=== PATIENT | male | born 1990 | race Caucasian/White ===

== ENCOUNTER 2016-05-06 12:31 | Observation (INO) | payer SELFPAY ==
[~2016-05-06] VITALS: Ht 172.7 cm; Wt 68.1 kg
[~2016-05-06 12:31] MED LIST: DICY1TAB26 PO; LACTATED RINGER'S 1000 ML INJ 1,000 ML IV ONE; NEOSTIGMINE 3 MG/3 ML SYR IV ONE; ONDANSETRON HCL 4 MG/2 ML VIAL IV PUSH ONE; PROPOFOL 200 MG/20 ML AMP IV ONE
[2016-05-06 12:35] VITALS: BP 130/72; PULSE 99; RESP 20; TEMP 97.7; O2SAT 100
--- NOTE | 2016-05-06 13:47 | PD ---
HPI Chief Complaint: GI Complaint Time Seen by Provider: 13:47 Travel History International Travel<30 days: No Contact w/Intl Traveler<30days: No Traveled to known affect area: No History of Present Illness HPI 25-year-old male with history of IBS presents to emergency department for evaluation right sided abdominal pain. Patient states he noticed it about a week ago. He has been having associated diarrhea. It has been happening intermittently since then but has become a constant sharp upper and lower quadrant pain. He states he noticed blood in his stool. He's been nauseous. He vomited one time yesterday. No fever or chills. Patient states preceding all of this he had an episode where he felt like he may have been having a heart attack area he states he called his mom and she "talked him through it." He has not had that sensation again but since then the abdominal pain began. PFSH Past Medical History Anemia: Yes Diminished Hearing: No Gastrointestinal Disorders: Yes (IBS) Reproductive: No Past Surgical History Other Surgery: No (NO SURGERIES) Social History Alcohol Use: Yes ("HERE AND THERE, SLIGHT OCCASION") Tobacco Use: No ("E-CIG ONLY" TRIED TOBACCO SMOKING A FEW TIMES EARLIER IN LIFE) Substance Use: No Allergies-Medications (Allergen,Severity, Reaction): Coded Allergies: No Known Allergies (Verified , 05/06/16) Reported Meds & Prescriptions Reported Meds & Active Scripts Active Reported Bentyl (Dicyclomine HCl) 20 Mg Tab 20 Mg PO TID PRN Review of Systems Except as stated in HPI: all other systems reviewed are Neg Physical Exam Narrative GENERAL: Well-nourished but cheerful male patient, lying in bed in no acute distress SKIN: Warm and dry. HEAD: Atraumatic. Normocephalic. EYES: Pupils equal and round. No scleral icterus. No injection or drainage. ENT: No nasal bleeding or discharge. Mucous membranes pink and moist. NECK: Trachea midline. No JVD. CARDIOVASCULAR: Elevated rate and rhythm. No murmur appreciated. RESPIRATORY: No accessory muscle use. Clear to auscultation. Breath sounds equal bilaterally. GASTROINTESTINAL: Abdomen soft, nondistended. There is right lower quadrant tenderness to palpation with mild guarding. No rebound tenderness. Hepatic and splenic margins not palpable. MUSCULOSKELETAL: No obvious deformities. No clubbing. No cyanosis. No edema. NEUROLOGICAL: Awake and alert. No obvious cranial nerve deficits. Motor grossly within normal limits. Normal speech. . Data Data Last Documented VS Vital Signs Date Time Temp Pulse Resp B/P Pulse Ox O2 Delivery O2 Flow Rate FiO2 05/06/16 19:04 100 18 121/75 98 Room Air 05/06/16 12:35 97.7 Orders Complete Blood Count With Diff (05/06/16 13:44) Comprehensive Metabolic Panel (05/06/16 13:44) Lipase (05/06/16 13:44) Prothrombin Time / Inr (Pt) (05/06/16 13:44) Act Partial Throm Time (Ptt) (05/06/16 13:44) Urinalysis - C+S If Indicated (05/06/16 13:44) Ct Abd/Pel W Iv Contrast(Rout) (05/06/16 ) Ondansetron Inj (Zofran Inj) (05/06/16 17:30) Ketorolac Inj (Toradol Inj) (05/06/16 17:30) Sodium Chlor 0.9% 1000 Ml Inj (Ns 1000 M (05/06/16 17:45) Iohexol 350 Inj (Omnipaque 350 Inj) (05/06/16 18:09) Iohexol 350 Inj (Omnipaque 350 Inj) (05/06/16 18:29) Morphine Inj (Morphine Inj) (05/06/16 19:00) Piperacil-Tazo 4.5 Gm Premix (Zosyn 4.5 (05/06/16 19:00) Labs Laboratory Tests Test 05/06/16 13:55 White Blood Count 8.4 TH/MM3 Red Blood Count 4.57 MIL/MM3 Hemoglobin 14.0 GM/DL Hematocrit 40.4 % Mean Corpuscular Volume 88.5 FL Mean Corpuscular Hemoglobin 30.6 PG Mean Corpuscular Hemoglobin 34.6 % Concent Red Cell Distribution Width 13.6 % Platelet Count 243 TH/MM3 Mean Platelet Volume 9.1 FL Neutrophils (%) (Auto) 69.8 % Lymphocytes (%) (Auto) 21.4 % Monocytes (%) (Auto) 7.2 % Eosinophils (%) (Auto) 0.9 % Basophils (%) (Auto) 0.7 % Neutrophils # (Auto) 5.8 TH/MM3 Lymphocytes # (Auto) 1.8 TH/MM3 Monocytes # (Auto) 0.6 TH/MM3 Eosinophils # (Auto) 0.1 TH/MM3 Basophils # (Auto) 0.1 TH/MM3 CBC Comment DIFF FINAL Differential Comment Prothrombin Time 10.7 SEC Prothromb Time International 1.0 RATIO Ratio Activated Partial 26.6 SEC Thromboplast Time Urine Color LIGHT-YELLOW Urine Turbidity CLEAR Urine pH 6.0 Urine Specific [place] 1.011 Urine Protein NEG mg/dL Urine Glucose (UA) NEG mg/dL Urine Ketones NEG mg/dL Urine Occult Blood NEG Urine Nitrite NEG Urine Bilirubin NEG Urine Urobilinogen LESS THAN 2.0 MG/DL Urine Leukocyte Esterase SMALL Urine RBC 1 /hpf Urine WBC 5 /hpf Urine Squamous Epithelial <1 /hpf Cells Urine Bacteria RARE /hpf Microscopic Urinalysis Comment CULT NOT INDICATED Sodium Level 142 MEQ/L Potassium Level 4.4 MEQ/L Chloride Level 107 MEQ/L Carbon Dioxide Level 27.4 MEQ/L Anion Gap 8 MEQ/L Blood Urea Nitrogen 14 MG/DL Creatinine 0.75 MG/DL Estimat Glomerular Filtration 127 ML/MIN Rate Random Glucose 91 MG/DL Calcium Level 9.0 MG/DL Total Bilirubin 0.2 MG/DL Aspartate Amino Transf 33 U/L (AST/SGOT) Alanine Aminotransferase 52 U/L (ALT/SGPT) Alkaline Phosphatase 100 U/L Total Protein 7.3 GM/DL Albumin 3.9 GM/DL Lipase 237 U/L [facility] Medical Decision Making Medical Screen Exam Complete: Yes Emergency Medical Condition: Yes Medical Record Reviewed: Yes Differential Diagnosis Colitis versus appendicitis versus cholecystitis versus IBS versus constipation as his anxiety Narrative Course 25-year-old male presents to the emergency department for evaluation. Workup is initiated in triage. Once a medical bed becomes available, patient will be transferred and care assumed by that provider. Condition: Stable AndreaAbbyAnnalauren RUIZ May 06, 2016 13:47
[2016-05-06 14:15] LABS: AUTOMATED NEUTROPHIL # 5.8 TH/MM3 (1.8-7.7); BASOPHIL # 0.1 TH/MM3 (0-0.2); BASOPHIL % 0.7 % (0.0-2.0); EOSINOPHIL # 0.1 TH/MM3 (0-0.4); EOSINOPHIL % 0.9 % (0.0-4.0); HEMATOCRIT 40.4 % (39.0-51.0); HEMO FLAGS DIFF FINAL; LYMPH % 21.4 % (9.0-44.0); LYMPHOCYTE # 1.8 TH/MM3 (1.0-4.8); MEAN CELL VOLUME 88.5 FL (80.0-100.0); MEAN CORPUSCULAR HEMOGLOBIN 30.6 PG (27.0-34.0); MEAN CORPUSCULAR HGB CONC 34.6 % (32.0-36.0); MONO % 7.2 % (0.0-8.0); NEUT % 69.8 % (16.0-70.0); PLATELET COUNT 243 TH/MM3 (150-450); RED BLOOD COUNT 4.57 MIL/MM3 (4.50-5.90); RED CELL DISTRIBUTION WIDTH 13.6 % (11.6-17.2); WHITE BLOOD COUNT 8.4 TH/MM3 (4.0-11.0)
[2016-05-06 14:26] LABS: BACTERIA, URINE RARE /hpf; BLOOD, URINE NEG (NEG); COMMENT (UR) CULT NOT INDICATED; CULTURE IF INDICATED CULT NOT INDICATED; GLUCOSE,URINE NEG (NEG); KETONE, URINE NEG (NEG); NITRITE,URINE NEG (NEG); SQUAMOUS EPITHELIAL CELL URINE <1 /hpf (0-5); URINE COLOR LIGHT-YELLOW (YELLW/STRAW)
[2016-05-06 14:28] LABS: APTT (PATIENT) 26.6 SEC (24.3-30.1); PROTHROMBIN TIME - PATIENT 10.7 SEC (9.8-11.6)
[2016-05-06 14:32] LABS: ALT (GPT) 52 U/L (12-78); ANION GAP 8 MEQ/L (5-15); AST (GOT) 33 U/L (15-37); BICARBONATE 27.4 MEQ/L (21.0-32.0); CHLORIDE 107 MEQ/L (98-107); GLOMERULAR FILTRATION RATE 127 ML/MIN (>89); POTASSIUM 4.4 MEQ/L (3.5-5.1); SODIUM (NA) 142 MEQ/L (136-145)
[2016-05-06 14:35] LABS: ALKALINE PHOSPHATASE 100 U/L (45-117); BLOOD UREA NITROGEN 14 MG/DL (7-18); TOTAL BILIRUBIN ADULT 0.2 MG/DL (0.2-1.0)
[2016-05-06] MEDS ORDERED: BENT20TA PO (17:05)
--- NOTE | 2016-05-06 17:26 | PD ---
Physical Exam Date Seen by Provider: May 06, 2016 Time Seen by Provider: 17:24 Narrative 25-year-old male presents to the emergency department with his mother for evaluation of abdominal pain. The patient was initially seen in triage and workup was started. The patient was then transferred back to medical [facility]. The patient states that his pain started approximately a week ago. However, his mother in the room states has been going on longer, approximately 3 weeks. Patient reports a history of IBS. He states his last colonoscopy was in 2006. He is not currently follow-up with a mercury recoverer. He reports chills, but no fevers. He does state he vomited 1 yesterday. Patient also reports diarrhea. Patient states he takes Bentyl which normally works for his IBS pain , but this pain is different and nothing is helping. GENERAL: Well-developed well-nourished male patient, afebrile. SKIN: Warm and dry. HEAD: Normocephalic. Atraumatic. EYES: No scleral icterus. No injection or drainage. NECK: Supple, trachea midline. No JVD or lymphadenopathy. CARDIOVASCULAR: Regular rate and rhythm without murmurs, gallops, or rubs. RESPIRATORY: Breath sounds equal bilaterally. No accessory muscle use. Lungs sounds clear to auscultation. GASTROINTESTINAL: Abdomen soft and nondistended. Patient's tenderness over right lower quadrant, right upper quadrant, epigastric region. MUSCULOSKELETAL: No cyanosis, or edema. BACK: Nontender without obvious deformity. No CVA tenderness. Data Data Last Documented VS Vital Signs Date Time Temp Pulse Resp B/P Pulse Ox O2 Delivery O2 Flow Rate FiO2 05/06/16 20:28 93 16 121/75 100 Room Air 05/06/16 12:35 97.7 Orders Complete Blood Count With Diff (05/06/16 13:44) Comprehensive Metabolic Panel (05/06/16 13:44) Lipase (05/06/16 13:44) Prothrombin Time / Inr (Pt) (05/06/16 13:44) Act Partial Throm Time (Ptt) (05/06/16 13:44) Urinalysis - C+S If Indicated (05/06/16 13:44) Ct Abd/Pel W Iv Contrast(Rout) (05/06/16 ) Ondansetron Inj (Zofran Inj) (05/06/16 17:30) Ketorolac Inj (Toradol Inj) (05/06/16 17:30) Sodium Chlor 0.9% 1000 Ml Inj (Ns 1000 M (05/06/16 17:45) Iohexol 350 Inj (Omnipaque 350 Inj) (05/06/16 18:09) Iohexol 350 Inj (Omnipaque 350 Inj) (05/06/16 18:29) Morphine Inj (Morphine Inj) (05/06/16 19:00) Piperacil-Tazo 4.5 Gm Premix (Zosyn 4.5 (05/06/16 19:00) Admit Order (Ed Use Only) (05/06/16 20:53) Labs Laboratory Tests Test 05/06/16 13:55 White Blood Count 8.4 TH/MM3 Red Blood Count 4.57 MIL/MM3 Hemoglobin 14.0 GM/DL Hematocrit 40.4 % Mean Corpuscular Volume 88.5 FL Mean Corpuscular Hemoglobin 30.6 PG Mean Corpuscular Hemoglobin 34.6 % Concent Red Cell Distribution Width 13.6 % Platelet Count 243 TH/MM3 Mean Platelet Volume 9.1 FL Neutrophils (%) (Auto) 69.8 % Lymphocytes (%) (Auto) 21.4 % Monocytes (%) (Auto) 7.2 % Eosinophils (%) (Auto) 0.9 % Basophils (%) (Auto) 0.7 % Neutrophils # (Auto) 5.8 TH/MM3 Lymphocytes # (Auto) 1.8 TH/MM3 Monocytes # (Auto) 0.6 TH/MM3 Eosinophils # (Auto) 0.1 TH/MM3 Basophils # (Auto) 0.1 TH/MM3 CBC Comment DIFF FINAL Differential Comment Prothrombin Time 10.7 SEC Prothromb Time International 1.0 RATIO Ratio Activated Partial 26.6 SEC Thromboplast Time Urine Color LIGHT-YELLOW Urine Turbidity CLEAR Urine pH 6.0 Urine Specific [place] 1.011 Urine Protein NEG mg/dL Urine Glucose (UA) NEG mg/dL Urine Ketones NEG mg/dL Urine Occult Blood NEG Urine Nitrite NEG Urine Bilirubin NEG Urine Urobilinogen LESS THAN 2.0 MG/DL Urine Leukocyte Esterase SMALL Urine RBC 1 /hpf Urine WBC 5 /hpf Urine Squamous Epithelial <1 /hpf Cells Urine Bacteria RARE /hpf Microscopic Urinalysis Comment CULT NOT INDICATED Sodium Level 142 MEQ/L Potassium Level 4.4 MEQ/L Chloride Level 107 MEQ/L Carbon Dioxide Level 27.4 MEQ/L Anion Gap 8 MEQ/L Blood Urea Nitrogen 14 MG/DL Creatinine 0.75 MG/DL Estimat Glomerular Filtration 127 ML/MIN Rate Random Glucose 91 MG/DL Calcium Level 9.0 MG/DL Total Bilirubin 0.2 MG/DL Aspartate Amino Transf 33 U/L (AST/SGOT) Alanine Aminotransferase 52 U/L (ALT/SGPT) Alkaline Phosphatase 100 U/L Total Protein 7.3 GM/DL Albumin 3.9 GM/DL Lipase 237 U/L [facility] Medical Record Reviewed: Yes Supervised Visit with NESS: No Interpretation(s) Last Impressions Abdomen/Pelvis CT 05/06/16 0000 Signed Impressions: Service Date/Time: Friday, May 06, 2016 18:08 - CONCLUSION: Mild appendiceal distention with mildly thickened enhancing wall suggesting low grade appendicitis. There is no evidence of significant periappendiceal inflammation or abnormal fluid collections. Otherwise normal evaluation. Richard Perry MD Differential Diagnosis Appendicitis versus cholecystitis versus gastroenteritis versus colitis Narrative Course 25-year-old male presents to the emergency department for evaluation of abdominal pain is been ongoing for 1 week. CBC is unremarkable. CMP is unremarkable. Coags are unremarkable. UA shows no evidence of acute infection. CT abdomen/pelvis shows mild appendiceal distention with mildly thickened enhancing wall suggesting low grade appendicitis. There is no evidence of significant periappendiceal inflammation or abnormal fluid collections. Otherwise normal evaluation. I spoke with the surgeon, Dr. Valle, at 1850. He states he'll evaluate the patient. Patient is given Zosyn 4.[address] Valle saw patient in the ED and will take him to the OR. Diagnosis Primary Impression: Appendicitis Qualified Code: K35.80 - Acute appendicitis, unspecified acute appendicitis type Admitting Information Admitting Physician Requests: Observation Toña Cleaning May 06, 2016 17:26
[2016-05-06] MEDS ORDERED: KETOROLAC TROMETHAMINE 30 MG/ML (IVP) VIAL IV PUSH ONE (17:30)
[2016-05-06] MEDS ORDERED: ONDANSETRON HCL 4 MG/2 ML VIAL IV PUSH ONE (17:30)
[2016-05-06] MEDS ORDERED: SODIUM CHLOR 0.9% 1000 ML INJ 1,000 ML IV ONE (17:45)
[2016-05-06] MEDS ORDERED: IOHEXOL 350 MG/ML 10 ML VIAL (for RAD DIAG) IV ONE ×2 (18:09→18:29)
--- NOTE | 2016-05-06 18:44 | RADRPT ---
EXAM DATE/TIME: 05/06/2016 18:08 [place] COMPARISON: No previous studies available for comparison. INDICATIONS : RUQ abdominal pain with nausea and vomiting for 1 week. IV CONTRAST: 95 cc Omnipaque 350 (iohexol) IV ORAL CONTRAST: No oral contrast ingested. RADIATION DOSE: 4.67 CTDIvol (mGy) MEDICAL HISTORY : Inflammatory bowel disease. SURGICAL HISTORY : None. ENCOUNTER: Initial ACUITY: 1 week PAIN SCALE: 6/10 LOCATION: Right upper quadrant Abdomen/pelvis TECHNIQUE: Volumetric scanning of the abdomen and pelvis was performed. Using automated exposure control and ad justment of the mA and/or kV according to patient size, radiation dose was kept as low as reasonably achievable to obtain optimal diagnostic quality images. FINDINGS: LOWER LUNGS: The visualized lower lungs are clear. LIVER: Homogeneous density without lesion. There is no dilation of the biliary tree. No calcified gallston es. SPLEEN: Normal size without lesion. PANCREAS: Within normal limits. KIDNEYS: Normal in size and shape. There is no mass, stone or hydronephrosis. ADRENAL GLANDS: Within normal limits. VASCULAR: There is no aortic aneurysm. BOWEL/MESENTERY: The appendix demonstrates mild prominence of its wall and measures 11 mm in diameter. There is no luh dence of significant periappendiceal inflammation or fluid collection. The stomach, small bowel, and colon otherwise demonstrate no acute abnormality. There is no free intraperitoneal air or fluid. ABDOMINAL WALL: Within normal limits. RETROPERITONEUM: There is no lymphadenopathy. BLADDER: No wall thickening or mass. REPRODUCTIVE: Within normal limits. INGUINAL: There is no lymphadenopathy or hernia. MUSCULOSKELETAL: Within normal limits for patient age. CONCLUSION: Mild appendiceal distention with mildly thickened enhancing wall suggesting low grade appendicitis. There is no evidence of significant periappendiceal inflammation or abnormal fluid col lections. Otherwise normal evaluation. Richard Perry MD on May 06, 2016 at 18:39 Board Certified Radiologist. This report was verified electronically.
[2016-05-06] MEDS ORDERED: PIPERACIL-TAZO 4.5 GM PREMIX 100 ML IV ONE (19:00)
[2016-05-06] MEDS ORDERED: MORPHINE SULFATE 4 MG/ML INJ IV PUSH ONE (19:00)
[2016-05-06 19:04] VITALS: BP 121/75; PULSE 100; RESP 18; O2SAT 98
[2016-05-06 20:28] VITALS: BP 121/75; PULSE 93; RESP 16; O2SAT 100
[2016-05-06 21:29] VITALS: BP 136/76; PULSE 88; RESP 18; O2SAT 98
[2016-05-06] MEDS ORDERED: BUPIVACAINE/EPINEPHRINE 0.5% PF 30 ML VIAL ONE (22:02)
[2016-05-06] MEDS ORDERED: ceFAZolin INJ 1,000 MG VIAL IV ONE (22:21)
[2016-05-06] MEDS ORDERED: fentaNYL CITRATE 250 MCG/5 ML AMP ONE (22:25)
[2016-05-06] MEDS ORDERED: MIDAZOLAM HCL 2 MG/2 ML VIAL ONE (22:25)
--- NOTE | 2016-05-06 23:18 | HHI.PR ---
Immediate Post Op Note Procedure Date: May 06, 2016 Pre Op Diagnosis: abdominal pain Post Op Diagnosis: same, adhesions, mildly distended appendix Surgeon: Talon Valle MD Material Control Analyst(s): see or sheet Procedure: diagnostic laparoscopy, lap appy Findings: mildly distended appendix Complications: none Specimen(s) removed: appendix Estimated blood loss: 5cc Anesthesia: General Drains: None IVF (1000) Patient to: PACU Patient Condition: Good Talon Valle MD May 06, 2016 23:18
[2016-05-06] MEDS ORDERED: *MEPERIDINE 25 MG INJ VIAL PERIprocedural Use ONLY ONE (23:30)
[2016-05-06] MEDS ORDERED: Post-op Orders (for Pharmacy) MISC XX ONE (23:30)
[2016-05-06] MEDS ORDERED: DO NOT ADM ANY ANTICOAGULANT DRUGS XX PRN (23:30)
[2016-05-06] MEDS: SODIUM CHLORIDE 0.9% FLUSH 5 ML FLUSH IVF SCH (23:30)
[2016-05-06] MEDS: DOCUSATE SODIUM 100 MG CAP PO SCH (23:30)
[2016-05-06] MEDS ORDERED: ACETAMINOPHEN/HYDROcodone 325 MG/5 MG TAB PO PRN (23:30)
[2016-05-06] MEDS ORDERED: *morphine SULFATE 8 MG/ML PERIprocedure ONLY ONE ×2 (23:30→23:52)
[2016-05-06] MEDS: SODIUM CHLOR 0.9% 1000 ML INJ 1,000 ML IV SCH (23:50)
[2016-05-07 01:03] VITALS: BP 112/71; PULSE 90; RESP 18; TEMP 96.4; O2SAT 97
[2016-05-07] MEDS: ACETAMINOPHEN/HYDROcodone 325 MG/5 MG TAB PO PRN ×2 (01:04→05:19)
[2016-05-07] MEDS: HYDROmorphone HCL PF 1 MG/ML VIAL IV PRN ×2 (05:25→09:54)
--- NOTE | 2016-05-07 06:41 | HHI.PR ---
Subjective Subjective Notes no acute issues, still with pain but controlled with meds, able to sleep last night Objective Vitals/I&O Vital Signs Date Time Temp Pulse Resp B/P Pulse Ox O2 Delivery O2 Flow Rate FiO2 05/07/16 01:03 96.4 90 18 112/71 97 05/07/16 00:28 Room Air 05/07/16 00:00 3 Labs Laboratory Tests Test 05/06/16 13:55 White Blood Count 8.4 Red Blood Count 4.57 Hemoglobin 14.0 Hematocrit 40.4 Mean Corpuscular Volume 88.5 Mean Corpuscular Hemoglobin 30.6 Mean Corpuscular Hemoglobin 34.6 Concent Red Cell Distribution Width 13.6 Platelet Count 243 Mean Platelet Volume 9.1 Neutrophils (%) (Auto) 69.8 Lymphocytes (%) (Auto) 21.4 Monocytes (%) (Auto) 7.2 Eosinophils (%) (Auto) 0.9 Basophils (%) (Auto) 0.7 Neutrophils # (Auto) 5.8 Lymphocytes # (Auto) 1.8 Monocytes # (Auto) 0.6 Eosinophils # (Auto) 0.1 Basophils # (Auto) 0.1 CBC Comment DIFF FINAL Differential Comment Prothrombin Time 10.7 Prothromb Time International 1.0 Ratio Activated Partial 26.6 Thromboplast Time Urine Color LIGHT-YELLOW Urine Turbidity CLEAR Urine pH 6.0 Urine Specific [place] 1.011 Urine Protein NEG Urine Glucose (UA) NEG Urine Ketones NEG Urine Occult Blood NEG Urine Nitrite NEG Urine Bilirubin NEG Urine Urobilinogen LESS THAN 2.0 Urine Leukocyte Esterase SMALL Urine RBC 1 Urine WBC 5 Urine Squamous Epithelial <1 Cells Urine Bacteria RARE Microscopic Urinalysis Comment CULT NOT INDICATED Sodium Level 142 Potassium Level 4.4 Chloride Level 107 Carbon Dioxide Level 27.4 Anion Gap 8 Blood Urea Nitrogen 14 Creatinine 0.75 Estimat Glomerular Filtration 127 Rate Random Glucose 91 Calcium Level 9.0 Total Bilirubin 0.2 Aspartate Amino Transf 33 (AST/SGOT) Alanine Aminotransferase 52 (ALT/SGPT) Alkaline Phosphatase 100 Total Protein 7.3 Albumin 3.9 Lipase 237 Cardiovascular: Regular Lungs: Clear Abdomen: Other (incision scant blood, abd +ttp ) A/P Assessment and Plan abdominal pain, s/p Dx lap, appendectomy, MARIE POD 1 PLAN Reg diet as tolerated pain control will discuss with GI for further recommendations on abd pain oob is Talon Luz MD May 07, 2016 06:41
[2016-05-07 08:00] VITALS: BP 116/75; PULSE 79; RESP 18; TEMP 96.6; O2SAT 100
[2016-05-07 08:13] LABS: AUTOMATED NEUTROPHIL # 13.7 TH/MM3 (1.8-7.7); BASOPHIL % 0.3 % (0.0-2.0); HEMATOCRIT 38.6 % (39.0-51.0); HEMO FLAGS DIFF FINAL; LYMPH % 6.5 % (9.0-44.0); MEAN CELL VOLUME 88.3 FL (80.0-100.0); MEAN CORPUSCULAR HEMOGLOBIN 30.5 PG (27.0-34.0); MEAN CORPUSCULAR HGB CONC 34.5 % (32.0-36.0); MONO % 1.6 % (0.0-8.0); NEUT % 91.6 % (16.0-70.0); PLATELET COUNT 236 TH/MM3 (150-450); RED BLOOD COUNT 4.37 MIL/MM3 (4.50-5.90); RED CELL DISTRIBUTION WIDTH 13.5 % (11.6-17.2)
--- NOTE | 2016-05-07 08:44 | MH ---
cc: AYSE CARRILLO MD DATE OF ADMISSION: 05/06/2016 CHIEF COMPLAINT Abdominal pain. HISTORY OF PRESENT ILLNESS The patient is a 25-year-old male with history of infectious diarrhea presents with acute onset of abdominal pain. The patient noted that the abdominal pain has been going on for approximately 1 week. It has continued to get worse and somewhat severe 10/13, constant, . He complains of sharp pain in the right lower quadrant and states it is the worse pain then he have felt before. He did have episodes of nausea, vomiting yesterday, he had no fevers but had subjective chills and states he is not feeling well. He does have chronic history of Irritable bowel syndrome for which he occasionally takes bethanechol for and states this pain feels different than those diarrheal episodes. The patient also has a history of significant of bacterial diarrhea for which he has had prolonged hospital stay and treatment for in the past. PHYSICAL EXAMINATION: On my exam the patient is resting in bed. He states some improvement in pain after IV pain medications but still complains of significant severe pain primarily in the right lower quadrant somewhat diffuse though. CT scan was obtained showing thickened appendix without evidence of abscess or perforation. PAST MEDICAL HISTORY Irritable bowel syndrome Bacterial diarrhea. PAST SURGERIES The patient is had no surgeries. SOCIAL HISTORY The patient denies smoking, occasional EtOH denies IVDA. ALLERGIES NO KNOWN DRUG ALLERGIES. MEDICATIONS Bentyl FAMILY HISTORY Denies diabetes or hypertension. REVIEW OF SYSTEMS GENERAL: Complains of chills. HEAD, EYES, EARS, NOSE, AND THROAT: Denies eye pain, ear pain. A Respiratory: Denies cough or wheeze. CARDIAC: Denies palpitations, chest or chest pain. ABDOMEN: Complained of abdominal pain and nausea, vomiting. EXTREMITIES: Denies myalgias, arthralgias. ENDOCRINE: Denies polyuria, polydipsia. GENITOURINARY: Denies dysuria, hematuria. PSYCHIATRIC: Denies any change in judgment or mood. NEUROLOGIC: Denies numbness, tingling. PHYSICAL EXAMINATION GENERAL: The patient no acute distress. VITAL SIGNS: Temperature 97.7, pulse 100, respiration 28, blood pressure 130/72 the present saturations. HEAD, EYES, EARS, NOSE, AND THROAT: Pupils equal, round, reactive to light and accommodation, extraocular muscles intact NECK: Supple. Trachea midline. LUNGS: The lungs are clear to auscultation bilaterally. HEART: S1-S2 regular rhythm. ABDOMEN: Guarding. Positive tenderness to palpation right lower quadrant. Minimal tenderness periumbilical and lower quadrant. No rigidity. EXTREMITIES: Warm, well-perfused, 2+ pulses. NEUROLOGIC: Satya Coma Scale of 15 no numbness. LABORATORY AND DIAGNOSTIC DATA WBC 8.4, hemoglobin 14, hematocrit 40.4, platelets 2.3, sodium 142, potassium 4.4, chloride 107, BUN 14, creatinine 0.75, AST 33, ALT 52, alk phos 100, lipase 237, PT 10.7, INR one, PTT 26.6. IMAGING: Imaging reviewed by myself. Mild distended appendix mild thickening enhancement of the wall suggesting concern for appendicitis. ASSESSMENT The patient 25-year-old male acute onset right lower quadrant pain and somewhat diffuse, history of irritable bowel syndrome. History of chronic diarrhea. PLAN A full clinical radiologic laboratory workup the patient with above-named complaints including a distended thickened appendix. There is no evidence of stranding. The patient does have a normal white count however, the patient does have pretty severe abdominal pain with guarding. A full discussion was done with the patient regarding clinical situation discussed the fact that the patient has had pain for approximately 1 week. Normal white count which is not completely consistent with appendicitis. However, he does have significant pain and it is located in the right lower quadrant. Therefore I discussed several alternatives such as observation with repeat or white count of the morning and evaluation for development of fevers or worsening problems versus post operative intervention including a diagnostic laparoscopy with possible laparoscopic appendectomy. The patient decided to go through with surgical intervention for evaluation. Mother was at this bedside and agreed with operative plan. I further discussed if the appendix was the cause then we would remove this and evaluate for abscess or any signs of perforation which I have a low suspicion based on CT scans or if the appendix was normal would likely still be removed and possible discussion with a gastroenterology or further workup to evaluate the patient's abdominal pain. Again the patient stated understanding. MD LOLIS Watkins/van /11:53 PM /7:29 AM [facility]PITALDennis
[2016-05-07] MEDS: SODIUM CHLOR 0.9% 1000 ML INJ 1,000 ML IV SCH ×2 (09:46→21:06)
[2016-05-07] MEDS: DOCUSATE SODIUM 100 MG CAP PO SCH ×2 (09:47→21:05)
[2016-05-07] MEDS: SODIUM CHLORIDE 0.9% FLUSH 5 ML FLUSH IVF SCH ×2 (09:54→21:05)
[2016-05-07 12:00] VITALS: BP 132/82; PULSE 72; RESP 20; TEMP 96.9; O2SAT 98
[2016-05-07] MEDS ORDERED: oxyCODONE/ACETAMINOPHEN 5 MG/325 MG TAB PO PRN (12:45)
[2016-05-07] MEDS: oxyCODONE/ACETAMINOPHEN 5 MG/325 MG TAB PO PRN ×2 (14:54→21:06)
[2016-05-07 16:00] VITALS: BP 119/69; PULSE 81; RESP 20; TEMP 96.1; O2SAT 97
--- NOTE | 2016-05-07 19:04 | PD.CONS ---
HPI History of Present Illness This is a 25 year old male with a history of irritable bowel syndrome who came to the emergency room for evaluation of abdominal pain 3 weeks with worsening symptoms over the past 2-[address] scan revealed mild appendiceal distention with mildly thickened enhancing wall suggesting low grade appendicitis. There is no evidence of significant periappendiceal inflammation or abnormal fluid collections. He subsequently underwent diagnostic laparoscopy, laparoscopic appendectomy MARIE on 05/06/[address] Loza. The patient is currently having mild to moderate abdominal pain, mainly at the site of his incisions and in his lower abdomen. He reports that he has had intermittent abdominal pain for most of his life. He reports that he had salmonella when he was 4 years of age and since that time he's had intermittent cramping. He was evaluated by staff nurse anesthetist back into and was evaluated with multiple testing including an EGD and colonoscopy. He reports that he was told that these were normal and he was diagnosed with irritable bowel syndrome at that time. He has noted that certain types of food seems to aggravate his symptoms- such as cold milk or large meals. He states that he continues to have intermittent symptoms consisting of lower abdominal cramping, bloating, and occasional hard stools. He takes dicyclomine for his pain and reports that this does seem to help. He reports that he has lost a small amount of weight, but cannot quantify this. He denies any regular heartburn or reflux, but did state that about 3 weeks ago when his RLQ pain originally started, that he experienced some pain in his RLQ that radiated to his epigastric area and chest. He describes the chest discomfort as a tightness, but states that it resolved on its own and he has not had any further episodes of this. He does have occasional nausea and did vomit prior to coming to the ER, but does not usually have any vomiting with his regular GI symptoms. He denies any melena or hematochezia. He has not been seen by staff nurse anesthetist in quite some time because he is having a difficult time obtaining insurance. (Sharon Jolly) PFSH Past Medical History Irritable bowel syndrome Chronic abdominal pain Past Surgical History EGD/colonoscopy (Sharon Jolly) Coded Allergies: No Known Allergies (Verified , 05/06/16) Medications Allergies Coded Allergies Type Severity Reaction Last Updated Verified No Known Allergies 05/06/16 Yes Active Scripts Medications Dose Route/Sig Days Date Category Bentyl (Dicyclomine HCl) 20 Mg Tab 20 Mg PO TID PRN 05/06/16 Reported Family History Denies any family history of inflammatory bowel disease or cancer Social History Denies the use of tobacco, alcohol, illicit drug use. Of note he does drink 4 sodas per day (Sharon Jolly) Review of Systems Constitutional: COMPLAINS OF: Weight loss, Change in appetite, DENIES: Fatigue , Fever Respiratory: DENIES: Cough Cardiovascular: COMPLAINS OF: Chest pain Gastrointestinal: COMPLAINS OF: Abdominal pain, Constipation, Nausea, DENIES: Black stools, Bloody stools, Diarrhea, Vomiting, Anorexia, Heartburn, Hematemesis Musculoskeletal: DENIES: Joint pain Integumentary: DENIES: Abnormal pigmentation Hematologic/lymphatic: DENIES: Bruising Neurologic: DENIES: Headache Psychiatric: DENIES: Confusion (Sharon Jolly) GI Exam Vitals I&O Vital Signs Date Time Temp Pulse Resp B/P Pulse Ox O2 Delivery O2 Flow Rate FiO2 05/07/16 16:00 96.1 81 20 119/69 97 05/07/16 12:00 96.9 72 20 132/82 98 05/07/16 08:00 96.6 79 18 116/75 100 05/07/16 01:03 96.4 90 18 112/71 97 05/07/16 00:28 98.5 82 16 118/71 98 Room Air 05/07/16 00:15 81 14 126/70 98 Room Air 05/07/16 00:00 85 14 126/79 99 Nasal Cannula 3 05/06/16 23:45 97 15 136/71 100 Nasal Cannula 3 05/06/16 21:29 88 18 136/76 98 Room Air 05/06/16 20:28 93 16 121/75 100 Room Air 05/06/16 19:04 100 18 121/75 98 Room Air I/O 05/06/16 05/06/16 05/06/16 05/07/16 05/07/16 05/07/16 07:00 15:00 23:00 07:00 15:00 23:00 Intake Total 1750 ml Output Total 1220 ml 650 ml Balance 530 ml -650 ml Intake Oral 150 ml Other 1600 ml Output Urine Total 1200 ml 650 ml Estimated Blood Loss 20 ml # Voids 0 2 # Bowel Movements 0 0 Imaging Last Impressions Abdomen/Pelvis CT 05/06/16 0000 Signed Impressions: Service Date/Time: Friday, May 06, 2016 18:08 - CONCLUSION: Mild appendiceal distention with mildly thickened enhancing wall suggesting low grade appendicitis. There is no evidence of significant periappendiceal inflammation or abnormal fluid collections. Otherwise normal evaluation. Richard Perry MD Laboratory Test 05/07/16 07:03 White Blood Count 15.0 TH/MM3 Red Blood Count 4.37 MIL/MM3 Hemoglobin 13.3 GM/DL Hematocrit 38.6 % Mean Corpuscular Volume 88.3 FL Mean Corpuscular Hemoglobin 30.5 PG Mean Corpuscular Hemoglobin 34.5 % Concent Red Cell Distribution Width 13.5 % Platelet Count 236 TH/MM3 Mean Platelet Volume 9.4 FL Neutrophils (%) (Auto) 91.6 % Lymphocytes (%) (Auto) 6.5 % Monocytes (%) (Auto) 1.6 % Eosinophils (%) (Auto) 0.0 % Basophils (%) (Auto) 0.3 % Neutrophils # (Auto) 13.7 TH/MM3 Lymphocytes # (Auto) 1.0 TH/MM3 Monocytes # (Auto) 0.2 TH/MM3 Eosinophils # (Auto) 0.0 TH/MM3 Basophils # (Auto) 0.0 TH/MM3 CBC Comment DIFF FINAL Differential Comment Physical Examination HEENT: Normocephalic; atraumatic; no jaundice. CHEST: CTA CARDIAC: RRR ABDOMEN: Soft,flat, steristrips d/i, nondistended,mild diffuse tenderness; no hepatosplenomegaly; bowel sounds are present in all four quadrants. EXTREMITIES: No clubbing, cyanosis, or edema. SKIN: Normal; no rash; no jaundice. PRODUCT GRADER: No focal deficits; alert and oriented times three. (Sharon Jolly [facility]) Assessment and Plan Plan ASSESSMENT: - Chronic abdominal pain/IBS. Pt reports that he has had intermittent lower abdominal cramping with bloating and occasional hard stools since he was 4. He reports that he was evaluated by GI in 2006 (Dr. Amos) and evaluated with EGD/Colonoscopy and multiple other tests. The patient reports that these were normal and that he was told that he had IBS. He was given a rx for bentyl and states this works for his cramping. He has identified certain triggers such as cold milk/cereal and large meals. Of note, he does consume caffeine- 4 sodas per day. Currently he is having abdominal discomfort at his incision lines. Denies any family hx of IBD. Will give dicyclomine. D/W patient diet modification, avoiding caffeine. - Abn. Imaging of his appendix on CT. Abdomen/Pelvis CT (05/06/16)---> Mild appendiceal distention with mildly thickened enhancing wall suggesting low grade appendicitis. There is no evidence of significant periappendiceal inflammation or abnormal fluid collections. Otherwise normal evaluation. S/P Lap. Appendectomy, MARIE, 05/06. - Leukocytosis. WBC 15.0. PLAN: - LESLYE - PPI - Trial of Bentyl - CBC in am - Further recommendations to follow after pt is seen by Dr. Landeros (Sharon Jolly) Plan Patient also reports fluctuating diarrhea and constipation he did have an episode of rectal bleeding he also reports pain while eating and loss of appetite and weight loss Agree with above plan but we will pursue an EGD and a colonoscopy on Monday ( Demetrius Landeros MD) Sharon Jolly May 07, 2016 19:04 Demetrius Landeros MD May 07, 2016 22:20
[2016-05-07 20:45] VITALS: BP 133/73; PULSE 86; RESP 16; TEMP 96.9; O2SAT 99
[2016-05-07 20:46] VITALS: O2SAT 97
[2016-05-07] MEDS: PANTOPRAZOLE SOD 40 MG DELAYED RELEASE TAB PO SCH (21:05)
[2016-05-08 00:32] VITALS: BP 101/53; PULSE 81; RESP 16; TEMP 97.1; O2SAT 100
[2016-05-08] MEDS: oxyCODONE/ACETAMINOPHEN 5 MG/325 MG TAB PO PRN ×4 (01:45→20:18)
[2016-05-08 07:34] LABS: AUTOMATED NEUTROPHIL # 4.1 TH/MM3 (1.8-7.7); BASOPHIL % 0.6 % (0.0-2.0); EOSINOPHIL # 0.1 TH/MM3 (0-0.4); EOSINOPHIL % 0.8 % (0.0-4.0); HEMO FLAGS DIFF FINAL; LYMPH % 36.4 % (9.0-44.0); LYMPHOCYTE # 2.8 TH/MM3 (1.0-4.8); MEAN CORPUSCULAR HEMOGLOBIN 31.6 PG (27.0-34.0); MEAN CORPUSCULAR HGB CONC 35.9 % (32.0-36.0); MONO % 7.5 % (0.0-8.0); NEUT % 54.7 % (16.0-70.0); PLATELET COUNT 224 TH/MM3 (150-450); RED BLOOD COUNT 4.09 MIL/MM3 (4.50-5.90); RED CELL DISTRIBUTION WIDTH 13.4 % (11.6-17.2); WHITE BLOOD COUNT 7.5 TH/MM3 (4.0-11.0)
[2016-05-08 08:00] VITALS: BP 125/78; PULSE 76; RESP 16; TEMP 97; O2SAT 100
[2016-05-08] MEDS: SODIUM CHLORIDE 0.9% FLUSH 5 ML FLUSH IVF SCH ×2 (09:00→20:18)
[2016-05-08] MEDS: DOCUSATE SODIUM 100 MG CAP PO SCH ×2 (09:10→20:17)
[2016-05-08] MEDS: PANTOPRAZOLE SOD 40 MG DELAYED RELEASE TAB PO SCH (09:10)
[2016-05-08] MEDS: SODIUM CHLOR 0.9% 1000 ML INJ 1,000 ML IV SCH (09:12)
--- NOTE | 2016-05-08 10:26 | HHI.PR ---
Subjective Subjective Notes abdominal pain continues along with post surgical pain, meds help some, tolerating po Objective Vitals/I&O Vital Signs Date Time Temp Pulse Resp B/P Pulse Ox O2 Delivery O2 Flow Rate FiO2 05/08/16 00:32 97.1 81 16 101/53 100 05/07/16 20:46 21 05/07/16 00:28 Room Air 05/07/16 00:00 3 Labs Laboratory Tests Test 05/08/16 07:13 White Blood Count 7.5 Red Blood Count 4.09 Hemoglobin 12.9 Hematocrit 36.0 Mean Corpuscular Volume 88.0 Mean Corpuscular Hemoglobin 31.6 Mean Corpuscular Hemoglobin 35.9 Concent Red Cell Distribution Width 13.4 Platelet Count 224 Mean Platelet Volume 8.6 Neutrophils (%) (Auto) 54.7 Lymphocytes (%) (Auto) 36.4 Monocytes (%) (Auto) 7.5 Eosinophils (%) (Auto) 0.8 Basophils (%) (Auto) 0.6 Neutrophils # (Auto) 4.1 Lymphocytes # (Auto) 2.8 Monocytes # (Auto) 0.6 Eosinophils # (Auto) 0.1 Basophils # (Auto) 0.0 CBC Comment DIFF FINAL Differential Comment Cardiovascular: Regular Lungs: Clear Abdomen: Non-distended, Post-op tenderness, BS normal Wound Wound : Wound Location: Abdomen Appearance: Clean & Dry A/P Assessment and Plan S/P lap appy, chronic abdominal pain, h/o salmonella colitis appreciate GI evaluation, needs further [place] pain meds prn Darnell Torres MD May 08, 2016 10:26
[2016-05-08] MEDS: HYDROmorphone HCL PF 1 MG/ML VIAL IV PRN ×2 (10:43→16:37)
[2016-05-08 12:00] VITALS: BP 137/75; PULSE 74; RESP 16; TEMP 97; O2SAT 100
--- NOTE | 2016-05-08 12:30 | HHI.GIFU ---
Subjective Remarks In bed. Tolerating diet. Has not moved his bowels yet. Cont. to have lower abdominal pain, controlled with pain meds. (Sharon Jolly) Objective Vitals I&O Vital Signs Date Time Temp Pulse Resp B/P Pulse Ox O2 Delivery O2 Flow Rate FiO2 05/08/16 00:32 97.1 81 16 101/53 100 05/07/16 20:46 97 21 05/07/16 20:45 96.9 86 16 133/73 99 05/07/16 16:00 96.1 81 20 119/69 97 I/O 05/07/16 05/07/16 05/07/16 05/08/16 05/08/16 05/08/16 07:00 15:00 23:00 07:00 15:00 23:00 Intake Total 1750 ml Output Total 1220 ml 650 ml Balance 530 ml -650 ml Intake Oral 150 ml Other 1600 ml Output Urine Total 1200 ml 650 ml Estimated Blood Loss 20 ml # Voids 0 2 1 # Bowel Movements 0 0 Laboratory Laboratory Tests Test 05/08/16 07:13 White Blood Count 7.5 Red Blood Count 4.09 Hemoglobin 12.9 Hematocrit 36.0 Mean Corpuscular Volume 88.0 Mean Corpuscular Hemoglobin 31.6 Mean Corpuscular Hemoglobin 35.9 Concent Red Cell Distribution Width 13.4 Platelet Count 224 Mean Platelet Volume 8.6 Neutrophils (%) (Auto) 54.7 Lymphocytes (%) (Auto) 36.4 Monocytes (%) (Auto) 7.5 Eosinophils (%) (Auto) 0.8 Basophils (%) (Auto) 0.6 Neutrophils # (Auto) 4.1 Lymphocytes # (Auto) 2.8 Monocytes # (Auto) 0.6 Eosinophils # (Auto) 0.1 Basophils # (Auto) 0.0 CBC Comment DIFF FINAL Differential Comment Imaging Last Impressions Abdomen/Pelvis CT 05/06/16 0000 Signed Impressions: Service Date/Time: Friday, May 06, 2016 18:08 - CONCLUSION: Mild appendiceal distention with mildly thickened enhancing wall suggesting low grade appendicitis. There is no evidence of significant periappendiceal inflammation or abnormal fluid collections. Otherwise normal evaluation. Richard Perry MD Physical Exam HEENT: Normocephalic; atraumatic; no jaundice. CHEST: CTA CARDIAC: RRR ABDOMEN: Soft,flat, steristrips d/i, nondistended,mild diffuse tenderness; no hepatosplenomegaly; bowel sounds are present in all four quadrants. EXTREMITIES: No clubbing, cyanosis, or edema. SKIN: Normal; no rash; no jaundice. FOOD MIXER: No focal deficits; alert and oriented times three. (Sharon Jolly) Assessment and Plan Plan ASSESSMENT: - Chronic abdominal pain/IBS. Pt reports that he has had intermittent lower abdominal cramping with bloating and occasional hard stools since he was 4. He reports that he was evaluated by GI in 2006 (Dr. Amos) and evaluated with EGD/Colonoscopy and multiple other tests. The patient reports that these were normal and that he was told that he had IBS. He was given a rx for bentyl and states this works for his cramping. He has identified certain triggers such as cold milk/cereal and large meals. Of note, he does consume caffeine- 4 sodas per day. Currently he is having abdominal discomfort at his incision lines. Denies any family hx of IBD. Dicyclomine. D/W patient diet modification, avoiding caffeine. Will plan for EGD/Colonoscopy in am. - Alternating constipation/diarrhea. - Occasional rectal bleeding. None currently. - Abn. Imaging of his appendix on CT. Abdomen/Pelvis CT (05/06/16)---> Mild appendiceal distention with mildly thickened enhancing wall suggesting low grade appendicitis. There is no evidence of significant periappendiceal inflammation or abnormal fluid collections. Otherwise normal evaluation. S/P Lap. Appendectomy, MARIE, 05/06. - Leukocytosis. Improved. WBC 7.5. PLAN: - Plan for egd/colonoscopy in am - Obtain consents - Clear liquids - NPO after MN - Golytely prep - PPI - Bentyl - Further recommendations to follow after results of above - Pt seen and examined by Dr. Landeros and myself and this note is written on his behalf (Sharon Jolly) Physician Comments Patient Seen and examined Agree with above Continue with current supportive care Monitor labs Plan for an EGD and a colonoscopy tomorrow (Demetrius Landeros MD) Sharon Jolly May 08, 2016 12:30 Demetrius Landeros MD May 08, 2016 18:32
[2016-05-08] MEDS: ONDANSETRON HCL 4 MG/2 ML VIAL IV PRN ×2 (15:32→20:24)
[2016-05-08 16:00] VITALS: BP 139/75; PULSE 68; RESP 16; TEMP 96; O2SAT 99
[2016-05-08] MEDS ORDERED: PEG (High)/E-LYTE SOLN 4000 ML BTL PO ONE (16:00)
--- NOTE | 2016-05-08 19:26 | MP ---
cc: AYSE VALLE MD DATE OF SURGERY: 05/06/2016. PREOPERATIVE DIAGNOSIS: Abdominal pain, appendicitis. POSTOPERATIVE DIAGNOSIS: Abdominal pain, appendicitis, adhesions. PROCEDURE PERFORMED: 1. Diagnostic laparoscopy. 2. Laparoscopic appendectomy. SURGEON: Dr. Ayse Valle. DIRECTIONAL DRILL OPERATOR: See OR sheet. ANESTHESIA: GETA IV FLUIDS: 1000 mL. ESTIMATED BLOOD LOSS: 5 mL. DRAINS: None. COMPLICATIONS: None. FINDINGS: Distended appendix. Minimal adhesions right lower quadrant. Small bowel appeared normal along with normal colon. No evidence of free fluid. WOUND CLASSIFICATION: Clean contaminated. SPECIMENS: Appendix. INDICATIONS FOR THE PROCEDURE: The patient is a 45-year-old male who presented with a history of enteritis, diarrhea and irritable bowel syndrome. The patient with further complaints of acute onset of a diffuse and a right lower quadrant abdominal pain. The patient stated that the pain started approximately a week ago and continued to get worse. He states the pain was a 10/10. He had some relief with IV pain medications. He had some nausea and vomiting and decreased appetite. Discussion was made with the patient and the mother at bedside regarding possible laparoscopic exploration and possible appendectomy due to findings on CT scan and clinical presentation. This was discussed with the patient in detail and they stated understanding and agreed and would like to proceed with operative intervention. DESCRIPTION OF THE PROCEDURE IN DETAIL: The patient was taken to the operating suite and placed in supine position. He was prepped and draped in the usual sterile fashion after induction of general endotracheal anesthesia. Brief time-out was done stating correct patient, procedure, surgical site and all were in agreement with this. Attention was directed to the umbilicus where a small stab allyson incision was made. Veress needle was obtained and placed intra-abdominally and confirmed with saline drop test. Abdomen insufflated to 50 mm pneumoperitoneum. On cursory inspection, no evidence of injury. Two other ports were placed, one 12 mm left lower quadrant port followed by a suprapubic 5 mm port done under direct visualization. On examination of the right lower quadrant, there is noted to be a little bit of scar tissue and adhesions. These adhesions were taken down. The cecum was mobilized minimally and the appendix was noted to be mildly distended. There was no evidence of perforation or much inflammation in this area. The standard appendectomy was performed. A [place] was used. A small window was made at the base of the appendix. A 35 Endo-JULIO stapler was obtained to transect the appendiceal base. The medial appendix was then transected with two loads of the Endo-JULIO 35 stapler. The appendix was then placed into the EndoCatch bag and removed from the left lower quadrant port. Hemostasis was obtained with Bovie electrocautery and a small piece of Surgicel. Further exploration continued to identify and examine the rest of the small bowel and colon. There was no evidence of significant abnormality, creeping fat or distension in the rest of the small bowel or colon. Following this, abdomen was desufflated. The ports were removed. Local anesthetic was injected at all port sites. The left lower quadrant port was closed with [id number] #0 Vicryl suture. The ports were closed with 4-0 Monocryl subcuticular sutures. Sterile dressings including Mastisol and Steri-Strips were placed. The patient tolerated procedure well. There were no intraoperative complications. The patient was extubated and taken stable to the post-anesthesia care unit. MD LOLIS Watkins/JERI /7:35 AM /7:15 PM
[2016-05-08 20:00] VITALS: BP 140/70; PULSE 87; RESP 20; TEMP 97.4; O2SAT 100
[2016-05-09] VITALS (7 sets, daily range): BP systolic 96–121; BP diastolic 55–69; PULSE 74–104; RESP 16–20; TEMP 96–96.9; O2SAT 99–100
[2016-05-09] MEDS: oxyCODONE/ACETAMINOPHEN 5 MG/325 MG TAB PO PRN ×3 (00:57→20:52)
[2016-05-09] MEDS: SODIUM CHLOR 0.9% 1000 ML INJ 1,000 ML IV SCH (01:45)
[2016-05-09] MEDS: SODIUM CHLORIDE 0.9% FLUSH 5 ML FLUSH IVF PRN ×4 (01:50→18:58)
[2016-05-09] MEDS: HYDROmorphone HCL PF 1 MG/ML VIAL IV PRN ×5 (01:50→23:23)
[2016-05-09] MEDS: PANTOPRAZOLE SOD 40 MG DELAYED RELEASE TAB PO SCH (09:00)
[2016-05-09] MEDS: DOCUSATE SODIUM 100 MG CAP PO SCH ×2 (09:00→20:52)
[2016-05-09] MEDS: SODIUM CHLORIDE 0.9% FLUSH 5 ML FLUSH IVF SCH ×2 (11:12→20:52)
[2016-05-09] MEDS ORDERED: PROPOFOL 200 MG/20 ML AMP IV ONE (13:51)
--- NOTE | 2016-05-09 14:24 | HHI.GIFU ---
Subjective Remarks doing ok, less pain, tolerated diet . Objective Vitals I&O Vital Signs Date Time Temp Pulse Resp B/P Pulse Ox O2 Delivery O2 Flow Rate FiO2 05/09/16 14:13 97.9 91 18 133/71 99 05/09/16 13:35 96.0 82 16 114/66 100 05/09/16 12:00 96.0 82 18 114/66 100 05/09/16 08:00 96.0 82 18 96/55 100 05/09/16 00:00 96.5 74 20 98/63 100 05/08/16 20:00 97.4 87 20 140/70 100 05/08/16 16:00 96.0 68 16 139/75 99 I/O 05/08/16 05/08/16 05/08/16 05/09/16 05/09/16 05/09/16 07:00 15:00 23:00 07:00 15:00 23:00 Intake Total 1100 ml 0 ml Output Total 800 ml 750 ml Balance 300 ml -750 ml Intake Oral 1100 ml 0 ml Output Urine Total 800 ml 750 ml # Voids 1 3 # Bowel Movements 2 3 Physical Exam HEENT: Normocephalic; atraumatic; no jaundice. CHEST: CTA CARDIAC: RRR ABDOMEN: Soft,flat, steristrips d/i, nondistended,mild diffuse tenderness; no hepatosplenomegaly; bowel sounds are present in all four quadrants. EXTREMITIES: No clubbing, cyanosis, or edema. SKIN: Normal; no rash; no jaundice. TELEVISION REPAIRMAN: No focal deficits; alert and oriented times three. Assessment and Plan Plan ASSESSMENT: - Chronic abdominal pain/IBS. Pt reports that he has had intermittent lower abdominal cramping with bloating and occasional hard stools since he was 4. He reports that he was evaluated by GI in 2006 (Dr. Amos) and evaluated with EGD/Colonoscopy and multiple other tests. The patient reports that these were normal and that he was told that he had IBS. He was given a rx for bentyl and states this works for his cramping. He has identified certain triggers such as cold milk/cereal and large meals. Of note, he does consume caffeine- 4 sodas per day. Currently he is having abdominal discomfort at his incision lines. Denies any family hx of IBD. Dicyclomine. D/W patient diet modification, avoiding caffeine. Will plan for EGD/Colonoscopy in am. - Alternating constipation/diarrhea. - Occasional rectal bleeding. None currently. - Abn. Imaging of his appendix on CT. Abdomen/Pelvis CT (05/06/16)---> Mild appendiceal distention with mildly thickened enhancing wall suggesting low grade appendicitis. There is no evidence of significant periappendiceal inflammation or abnormal fluid collections. Otherwise normal evaluation. S/P Lap. Appendectomy, MARIE, 05/06. - Leukocytosis. Improved. WBC 7.5. 04-11-16 patient seems to be doing better, less pain, tolerated prep. EGD showed minimal reddness in stomach, could be mild gastritis and irregular Z line, Bx done, colonoscopy was normal including terminal ileum, Bx to R/O colitis was done. no reason for his pain on these tests, most likely IBS PLAN: - Diet as tolerated - continue PPI - Bentyl - ok to [place] home from GI stand, he can follow as out patient Winston Clarke MD May 09, 2016 14:24
[2016-05-09] MEDS: ONDANSETRON HCL 4 MG/2 ML VIAL IV PRN (16:34)
--- NOTE | 2016-05-09 16:38 | HHI.PR ---
Subjective Subjective Notes still with pain, s/p egd, colonoscopy bx pending Objective Vitals/I&O Vital Signs Date Time Temp Pulse Resp B/P Pulse Ox O2 Delivery O2 Flow Rate FiO2 05/09/16 14:35 82 16 134/69 99 05/09/16 14:13 97.9 05/07/16 20:46 21 05/07/16 00:28 Room Air 05/07/16 00:00 3 Abdomen: Other (incisions scant dry blood) A/P Assessment and Plan abdominal pain, s/p Dx lap, appendectomy, MARIE PLAN Reg diet as tolerated pain control will discuss with GI for further recommendations on abd pain- await bx from EGD and colonoscopy oob is Talon Luz MD May 09, 2016 16:38
[2016-05-10] VITALS (8 sets, daily range): BP systolic 91–107; BP diastolic 50–58; PULSE 73–102; RESP 16–18; TEMP 95.9–97.1; O2SAT 95–99
[2016-05-10] MEDS: SODIUM CHLOR 0.9% 1000 ML INJ 1,000 ML IV SCH ×2 (07:45→17:45)
[2016-05-10] MEDS: DOCUSATE SODIUM 100 MG CAP PO SCH (09:50)
[2016-05-10] MEDS: PANTOPRAZOLE SOD 40 MG DELAYED RELEASE TAB PO SCH (09:50)
[2016-05-10] MEDS: oxyCODONE/ACETAMINOPHEN 5 MG/325 MG TAB PO PRN ×4 (09:51→22:34)
[2016-05-10] MEDS: SODIUM CHLORIDE 0.9% FLUSH 5 ML FLUSH IVF SCH ×2 (09:53→22:35)
[2016-05-10] MEDS: ONDANSETRON HCL 4 MG/2 ML VIAL IV PRN (14:06)
[2016-05-10] MEDS: DICYCLOMINE HCL 20 MG TAB PO PRN ×2 (14:07→22:34)
--- NOTE | 2016-05-10 15:28 | HHI.GIFU ---
Subjective Remarks Pt resting in bed. Tolerating diet so far. Mild abdominal discomfort. + BM this am. Objective Vitals I&O Vital Signs Date Time Temp Pulse Resp B/P Pulse Ox O2 Delivery O2 Flow Rate FiO2 05/10/16 12:00 96.8 77 18 91/50 98 05/10/16 09:44 96 21 05/10/16 08:00 95.9 76 18 97/55 95 05/10/16 04:00 97.1 73 16 107/57 98 05/10/16 00:00 96.9 86 18 98/58 98 05/09/16 22:03 99 21 05/09/16 20:00 96.9 104 19 107/62 99 05/09/16 16:00 96.5 78 18 121/69 99 I/O 05/09/16 05/09/16 05/09/16 05/10/16 05/10/16 05/10/16 07:00 15:00 23:00 07:00 15:00 23:00 Intake Total 0 ml 200 ml 480 ml 450 ml Output Total 750 ml 600 ml 300 ml Balance -750 ml 200 ml -120 ml 150 ml Intake Oral 0 ml 480 ml 450 ml Other 200 ml Output Urine Total 750 ml 600 ml 300 ml # Voids 3 # Bowel Movements 3 1 Imaging Last Impressions Abdomen/Pelvis CT 05/06/16 0000 Signed Impressions: Service Date/Time: Friday, May 06, 2016 18:08 - CONCLUSION: Mild appendiceal distention with mildly thickened enhancing wall suggesting low grade appendicitis. There is no evidence of significant periappendiceal inflammation or abnormal fluid collections. Otherwise normal evaluation. Richard Perry MD Physical Exam HEENT: Normocephalic; atraumatic; no jaundice. CHEST: CTA CARDIAC: RRR ABDOMEN: Soft,flat, steristrips d/i, nondistended,mild tenderness; no hepatosplenomegaly; bowel sounds are present in all four quadrants. EXTREMITIES: No clubbing, cyanosis, or edema. SKIN: Normal; no rash; no jaundice. BROADCAST OPERATIONS DIRECTOR: No focal deficits; alert and oriented times three. Assessment and Plan Plan ASSESSMENT: - Chronic abdominal pain/IBS. Pt reports that he has had intermittent lower abdominal cramping with bloating and occasional hard stools since he was 4. He reports that he was evaluated by GI in 2006 (Dr. Amos) and evaluated with EGD/Colonoscopy and multiple other tests. The patient reports that these were normal and that he was told that he had IBS. He was given a rx for bentyl and states this works for his cramping. He has identified certain triggers such as cold milk/cereal and large meals. Of note, he does consume caffeine- 4 sodas per day. Currently he is having abdominal discomfort at his incision lines. Denies any family hx of IBD. Dicyclomine. D/W patient diet modification, avoiding caffeine. EGD/Colonoscopy (05/09/16)----> Minimal gastritis from antrum, irregular z line bx from EG junction, normal endoscopy, retroflexed views revealed no abnormalities; normal exam, random bx from sigmoid and cecum to R/O colitis, some stool throughout the colon, retroflexed views revealed no abnormalities, revealed no abnormalities of the rectum. Pathology pending. Stable at this time. - Alternating constipation/diarrhea. S/P EGD/Colon as above. - Occasional rectal bleeding. None currently. - Abn. Imaging of his appendix on CT. Abdomen/Pelvis CT (05/06/16)---> Mild appendiceal distention with mildly thickened enhancing wall suggesting low grade appendicitis. There is no evidence of significant periappendiceal inflammation or abnormal fluid collections. Otherwise normal evaluation. S/P Lap. Appendectomy, MARIE, 05/06. - Leukocytosis. Improved. WBC 7.5. PLAN: - Diet as tolerated - Await pathology - Cont. PPI - Cont. Bentyl - Ok to [place] home from GI stand, he can follow as out patient - GI will sign off, please reconsult as needed - PT seen and examined by Dr. Clarke and myself and this note is written on his behalf Sharon Jolly May 10, 2016 15:28
--- NOTE | 2016-05-10 16:26 | HHI.PR ---
Subjective Subjective Notes pt still with pain but feeling better, +bm yesterday Objective Vitals/I&O Vital Signs Date Time Temp Pulse Resp B/P Pulse Ox O2 Delivery O2 Flow Rate FiO2 05/10/16 12:00 96.8 77 18 91/50 98 05/10/16 09:44 21 05/07/16 00:28 Room Air 05/07/16 00:00 3 Cardiovascular: Regular Lungs: Clear Abdomen: Other (+ttp improving, incisions scant dry drainage ) A/P Assessment and Plan abdominal pain, s/p Dx lap, appendectomy, MARIE PLAN Reg diet as tolerated PO pain control oob is SCDs d/c tomorrow Talon Valle MD May 10, 2016 16:26
[2016-05-11] VITALS: BP 98/54; PULSE 93; RESP 16; TEMP 97.5; O2SAT 98
[2016-05-11 04:00] VITALS: BP 98/50; PULSE 65; RESP 17; TEMP 96.5; O2SAT 99
[2016-05-11] MEDS: DOCUSATE SODIUM 100 MG CAP PO SCH (07:47)
[2016-05-11] MEDS: oxyCODONE/ACETAMINOPHEN 5 MG/325 MG TAB PO PRN (07:47)
[2016-05-11] MEDS: PANTOPRAZOLE SOD 40 MG DELAYED RELEASE TAB PO SCH (07:47)
[2016-05-11 08:18] VITALS: BP 101/64; PULSE 74; RESP 16; TEMP 96.5; O2SAT 100
[2016-05-11] MEDS: DICYCLOMINE HCL 20 MG TAB PO PRN (08:44)
[2016-05-11] MEDS: HYDROmorphone HCL PF 1 MG/ML VIAL IV PRN (08:44)
[2016-05-11 08:55] VITALS: O2SAT 99
[2016-05-11] MEDS ORDERED: DICYCLOMINE HCL 20 MG TAB PO PRN (11:00)
--- NOTE | 2016-05-11 11:00 | HHI.PR ---
Subjective Subjective Notes still with some pain but better, +bms Objective Vitals/I&O Vital Signs Date Time Temp Pulse Resp B/P Pulse Ox O2 Delivery O2 Flow Rate FiO2 05/11/16 08:55 99 21 05/11/16 08:18 96.5 74 16 101/64 Abdomen: Other (incisional tenderness) A/P Assessment and Plan abdominal pain, s/p Dx lap, appendectomy, [facility] Reg diet as tolerated PO pain control oob is SCDs d/c today Talon Valle MD May 11, 2016 11:00
[2016-05-11 12:08] VITALS: BP 130/73; PULSE 80; RESP 16; TEMP 96.4; O2SAT 96
--- NOTE | 2016-06-07 11:16 | HHI.DS ---
Discharge Summary Admission Date May 06, 2016 at 20:54 Discharge Date: May 11, 2016 Admitting Diagnosis acute appendicitis Brief History 25 year old male with abdominal pain; s/p dx lap; lap appy; MARIE PE at Discharge Alert and awake Cardio: RRR Resp: CTAB Abd: non distended; lap sites c/d/i Hospital Course This is a 25 year old male s/p lap appy and MARIE. He was able to tolerate a regular diet. His pain was controlled using oral pain medications. He will follow up with Dr. Valle in the office. Pt Condition on Discharge: Good Discharge Disposition: Discharge Home Discharge Instructions DIET: Follow Instructions for: As Tolerated, No Restrictions Activities you can perform: See Additionl Instruction Other Activity Instructions: no heavy lifting >15 lbs for 3 weeks Ekta Knutson Jun 07, 2016 11:16
[2016-07-12] MEDS ORDERED: TRAZ100T4 PO (08:55)
[2016-07-12] MEDS ORDERED: PROZ20CA11 PO (08:55)
[2016-07-12] MEDS ORDERED: BENT20TA PO (08:56)
[2016-07-27] MEDS ORDERED: BENT20TA PO (10:53)
[2016-07-27] MEDS ORDERED: TRAZ100T4 PO (10:53)
[2016-07-27] MEDS ORDERED: FLUO40CA PO (10:53)
[2016-07-27] MEDS ORDERED: ALPR1TAB3 PO (10:53)
[2016-07-27] MEDS ORDERED: PERC5TAB12 PO (10:56)
[2016-08-22] MEDS ORDERED: FLUO40CA PO (14:10)
[2016-08-22] MEDS ORDERED: TRAZ100T6 PO (14:10)
[2016-08-22] MEDS ORDERED: PERC5TAB12 PO (14:10)
[2016-08-22] MEDS ORDERED: ALPR1TAB3 PO (14:10)
== END 2016-05-11 15:18 | disposition home or self-care (01) ==
LOC: NEPC 12:31 → NEDA 20:54 → N06B 05-07 00:42
PROVIDERS: ADMIT Surgery; ATTEND Surgery
DX: K35.89 Other acute appendicitis (principal); K29.50 Unspecified chronic gastritis without bleeding; R10.84 Generalized abdominal pain; D64.9 Anemia, unspecified; K58.9 Irritable bowel syndrome, unspecified; Z88.8 Allergy status to other drugs, medicaments and biological substances
CPT/HCPCS: 00840; 43239; 44970; 45380; 74177; 80053; 81001; 83690; 85025; 85610; 85730; 88304; 88305; 96361; 96365; 96375; 99285; G0378; J0690; J1170; J1885; J2175; J2250; J2270; J2405; J2543; J2710; J3010; J7030; J7120; Q9967; 88312

== ENCOUNTER 2016-05-18 18:33 | Observation (INO) | payer SELFPAY ==
[~2016-05-18] VITALS: Ht 175.3 cm; Wt 75.0 kg
[~2016-05-18 18:33] MED LIST changes: +BENT20TA PO; -DICY1TAB26 PO; -LACTATED RINGER'S 1000 ML INJ 1,000 ML IV ONE; -NEOSTIGMINE 3 MG/3 ML SYR IV ONE; -ONDANSETRON HCL 4 MG/2 ML VIAL IV PUSH ONE; -PROPOFOL 200 MG/20 ML AMP IV ONE
[2016-05-18 18:36] VITALS: BP 120/56; PULSE 124; RESP 16; TEMP 98.1; O2SAT 98
[2016-05-18 21:18] VITALS: BP 146/65; PULSE 92; RESP 16; TEMP 97.2; O2SAT 99
[2016-05-18] MEDS ORDERED: SODIUM CHLOR 0.9% 1000 ML INJ 1,000 ML IV SCH ×2 (21:34→23:14)
[2016-05-18] MEDS ORDERED: ONDANSETRON HCL 4 MG/2 ML VIAL IVP ONE (21:45)
[2016-05-18] MEDS ORDERED: SODIUM CHLORIDE 0.9% FLUSH 5 ML FLUSH IVF PRN (21:45)
[2016-05-18] MEDS ORDERED: MORPHINE SULFATE 4 MG/ML INJ IV PUSH ONE (21:45)
--- NOTE | 2016-05-18 22:04 | PD ---
HPI Chief Complaint: Abdominal Pain Time Seen by Provider: 21:31 Travel History International Travel<30 days: No Contact w/Intl Traveler<30days: No Traveled to known affect area: No History of Present Illness HPI 25-year-old male who on 05/08/[address] Valle for thickened appendix, discharged on 05/11/16, here for evaluation of abdominal pain. The patient has had long history of abdominal pain and believes he may have IBS. He has no formal diagnosis. He has been seen by GI in the past. He has been having abdominal pain since his appendectomy, however it has worsened today. Pain is described as diffuse, cramping, moderate to severe. His pain medication at home is not helping with his pain. He called Dr. Valle's office today who advised that he present to the emergency department for evaluation. I discussed the case with Dr. Valle who operated on the patient 2 weeks ago. He does not believe that this is a surgical issue, and believes that this is more of a GI/enteric issue. He agrees with laboratory workup and possible CT abdomen pelvis. Should the patient be admitted, he would like the patient to be admitted to the medical service. [facility] Past Medical History Anemia: Yes Cardiovascular Problems: No Diminished Hearing: No Gastrointestinal Disorders: Yes (IBS) Genitourinary: No Musculoskeletal: No Neurologic: No Reproductive: No Respiratory: No Past Surgical History Abdominal Surgery: No Cardiac Surgery: No Thoracic Surgery: No Other Surgery: No (NO SURGERIES) Social History Alcohol Use: Yes ("HERE AND THERE, SLIGHT OCCASION") Tobacco Use: No ("E-CIG ONLY" TRIED TOBACCO SMOKING A FEW TIMES EARLIER IN LIFE) Substance Use: No Allergies-Medications (Allergen,Severity, Reaction): Coded Allergies: No Known Allergies (Verified , 05/18/16) Reported Meds & Prescriptions Reported Meds & Active Scripts Active Reported Bentyl (Dicyclomine HCl) 20 Mg Tab 20 Mg PO TID PRN Review of Systems Except as stated in HPI: all other systems reviewed are Neg Physical Exam Narrative GENERAL: Well-developed, well-nourished, mild distress secondary to abdominal discomfort. SKIN: Warm and dry. HEAD: Atraumatic. Normocephalic. EYES: Pupils equal and round. No scleral icterus. No injection or drainage. ENT: Mucous membranes pink and moist. CARDIOVASCULAR: Regular rate and rhythm. RESPIRATORY: No accessory muscle use. Clear to auscultation. Breath sounds equal bilaterally. GASTROINTESTINAL: Abdomen soft, nondistended. Mild to moderate diffuse tenderness without peritoneal signs. Normal bowel sounds. MUSCULOSKELETAL: No obvious deformities. No clubbing. No cyanosis. No edema. NEUROLOGICAL: Awake and alert. No obvious cranial nerve deficits. Motor grossly within normal limits. Normal speech. PSYCHIATRIC: Appropriate mood and affect; insight and judgment normal. Data Data Last Documented VS Vital Signs Date Time Temp Pulse Resp B/P Pulse Ox O2 Delivery O2 Flow Rate FiO2 05/18/16 22:58 16 05/18/16 22:14 100 Room Air 05/18/16 21:18 97.2 92 146/65 Orders Complete Blood Count With Diff (05/18/16 21:34) Comprehensive Metabolic Panel (05/18/16 21:34) Lipase (05/18/16 21:34) Lactic Acid (05/18/16 21:34) Prothrombin Time / Inr (Pt) (05/18/16 21:34) Act Partial Throm Time (Ptt) (05/18/16 21:34) Urinalysis - C+S If Indicated (05/18/16 21:34) Iv Access Insert/Monitor (05/18/16 21:34) Ecg Monitoring (05/18/16 21:34) Oximetry (05/18/16 21:34) Morphine Inj (Morphine Inj) (05/18/16 21:45) Ondansetron Inj (Zofran Inj) (05/18/16 21:45) Sodium Chlor 0.9% 1000 Ml Inj (Ns 1000 M (05/18/16 21:34) Sodium Chloride 0.9% Flush (Ns Flush) (05/18/16 21:45) Ct Abd/Pel W Iv Contrast(Rout) (05/18/16 21:34) Iohexol 350 Inj (Omnipaque 350 Inj) (05/18/16 22:51) Tylenol (Acetaminophen) (05/18/16 22:00) Labs Laboratory Tests Test 05/18/16 22:00 White Blood Count 15.0 TH/MM3 Red Blood Count 5.15 MIL/MM3 Hemoglobin 15.7 GM/DL Hematocrit 45.5 % Mean Corpuscular Volume 88.5 FL Mean Corpuscular Hemoglobin 30.6 PG Mean Corpuscular Hemoglobin 34.5 % Concent Red Cell Distribution Width 13.8 % Platelet Count 310 TH/MM3 Mean Platelet Volume 9.4 FL Neutrophils (%) (Auto) 78.5 % Lymphocytes (%) (Auto) 13.4 % Monocytes (%) (Auto) 7.7 % Eosinophils (%) (Auto) 0.1 % Basophils (%) (Auto) 0.3 % Neutrophils # (Auto) 11.7 TH/MM3 Lymphocytes # (Auto) 2.0 TH/MM3 Monocytes # (Auto) 1.2 TH/MM3 Eosinophils # (Auto) 0.0 TH/MM3 Basophils # (Auto) 0.1 TH/MM3 CBC Comment DIFF FINAL Differential Comment Prothrombin Time 11.2 SEC Prothromb Time International 1.0 RATIO Ratio Activated Partial 26.3 SEC Thromboplast Time Sodium Level 137 MEQ/L Potassium Level 4.5 MEQ/L Chloride Level 101 MEQ/L Carbon Dioxide Level 29.1 MEQ/L Anion Gap 7 MEQ/L Blood Urea Nitrogen 15 MG/DL Creatinine 0.97 MG/DL Estimat Glomerular Filtration 94 ML/MIN Rate Random Glucose 114 MG/DL Lactic Acid Level 0.9 mmol/L Calcium Level 9.6 MG/DL Total Bilirubin 0.5 MG/DL Aspartate Amino Transf 99 U/L (AST/SGOT) Alanine Aminotransferase 164 U/L (ALT/SGPT) Alkaline Phosphatase 131 U/L Total Protein 8.7 GM/DL Albumin 4.5 GM/DL Lipase 136 U/L MDM Medical Decision Making Medical Screen Exam Complete: Yes Emergency Medical Condition: Yes Differential Diagnosis Gastric enteritis, gastritis, peptic ulcer disease, enteritis, IBD, bowel obstruction, intra-abdominal infection. Narrative Course Vital signs reviewed. CBC shows WBC 15, hemoglobin 15.7, hematocrit 45.5, platelets 310, neutrophils 78.5%. CMP is remarkable for AST 99, ALT 164, alkaline phosphatase 131, otherwise unremarkable. Lactic acid is 0.9. Coags are within normal limits. CT abdomen pelvis: Normal exam. Patient was made aware of all findings. He is still complaining of diffuse abdominal discomfort. He tells me that he only took one of his hydrocodone 5/ 325 today, and has been taking them as directed for the last 2 weeks. Denies taking them as an overdose. Tylenol levels added to patient's labs. Given intractable abdominal discomfort, the patient be admitted for overnight observation and GI consultation. Case discussed with hospitalist Dr. Staley who will admit the patient to her service. Diagnosis Primary Impression: Intractable abdominal pain Admitting Information Admitting Physician Requests: Observation Jomar Tejada MD May 18, 2016 22:04
[2016-05-18 22:14] VITALS: RESP 14; O2SAT 100
[2016-05-18 22:15] VITALS: BP 131/72; PULSE 83; RESP 14; TEMP 98.5; O2SAT 99
[2016-05-18 22:26] LABS: AUTOMATED NEUTROPHIL # 11.7 TH/MM3 (1.8-7.7); BASOPHIL # 0.1 TH/MM3 (0-0.2); BASOPHIL % 0.3 % (0.0-2.0); EOSINOPHIL % 0.1 % (0.0-4.0); HEMATOCRIT 45.5 % (39.0-51.0); HEMO FLAGS DIFF FINAL; LYMPH % 13.4 % (9.0-44.0); MEAN CELL VOLUME 88.5 FL (80.0-100.0); MEAN CORPUSCULAR HEMOGLOBIN 30.6 PG (27.0-34.0); MEAN CORPUSCULAR HGB CONC 34.5 % (32.0-36.0); MONO % 7.7 % (0.0-8.0); NEUT % 78.5 % (16.0-70.0); PLATELET COUNT 310 TH/MM3 (150-450); RED BLOOD COUNT 5.15 MIL/MM3 (4.50-5.90); RED CELL DISTRIBUTION WIDTH 13.8 % (11.6-17.2)
[2016-05-18 22:47] LABS: ALT (GPT) 164 U/L (12-78); ANION GAP 7 MEQ/L (5-15); AST (GOT) 99 U/L (15-37); BICARBONATE 29.1 MEQ/L (21.0-32.0); BLOOD UREA NITROGEN 15 MG/DL (7-18); CHLORIDE 101 MEQ/L (98-107); GLOMERULAR FILTRATION RATE 94 ML/MIN (>89); POTASSIUM 4.5 MEQ/L (3.5-5.1); SODIUM (NA) 137 MEQ/L (136-145)
[2016-05-18 22:48] LABS: ALKALINE PHOSPHATASE 131 U/L (45-117); TOTAL BILIRUBIN ADULT 0.5 MG/DL (0.2-1.0)
[2016-05-18] MEDS ORDERED: IOHEXOL 350 MG/ML 10 ML VIAL (for RAD DIAG) IV ONE (22:51)
--- NOTE | 2016-05-18 22:59 | RADRPT ---
EXAM DATE/TIME: 05/18/2016 22:43 [facility] COMPARISON: CT ABDOMEN & PELVIS W CONTRAST, May 06, 2016, 18:08. INDICATIONS : Abdomen pain. Post op appendectomy. IV CONTRAST: 70 cc Omnipaque 350 (iohexol) IV ORAL CONTRAST: No oral contrast ingested. RADIATION DOSE: 6.38 CTDIvol (mGy) MEDICAL HISTORY : None SURGICAL HISTORY : Appendectomy. ENCOUNTER: Initial ACUITY: 2 weeks PAIN SCALE: 6/10 LOCATION: Bilateral abdomen TECHNIQUE: Volumetric scanning of the abdomen and pelvis was performed. Using automated exposure control and ad justment of the mA and/or kV according to patient size, radiation dose was kept as low as reasonably achievable to obtain optimal diagnostic quality images. FINDINGS: The patient is status post appendectomy. Liver, gallbladder, spleen, pancreas, bilateral adrenal glan ds, bilateral kidneys are unremarkable. Urinary bladder is unremarkable. Prostate, small bowel, stoma ch, and large bowel are unremarkable. There is no evidence for abscess, and no evidence for bowel obs truction. Lung bases are clear. Osseous structures are intact. CONCLUSION: Normal examination. Jarod Rae MD on May 18, 2016 at 22:56 Board Certified Radiologist. This report was verified electronically.
[2016-05-18 23:00] LABS: APTT (PATIENT) 26.3 SEC (24.3-30.1); PROTHROMBIN TIME - PATIENT 11.2 SEC (9.8-11.6)
[2016-05-18] MEDS ORDERED: ONDANSETRON HCL 4 MG/2 ML VIAL IVP PRN (23:15)
[2016-05-18] MEDS ORDERED: NALOXONE HCL 0.4 MG/ML AMP IV PRN (23:15)
[2016-05-18] MEDS ORDERED: SODIUM CHLORIDE 0.9% FLUSH 5 ML FLUSH FLUSH PRN (23:15)
[2016-05-18 23:22] LABS: ACETAMINOPHEN LESS THAN 2.0 MCG/ML (10.0-30.0)
[2016-05-18 23:53] VITALS: BP 159/66; PULSE 92; RESP 14; O2SAT 99
[2016-05-19] VITALS (8 sets, daily range): BP systolic 107–142; BP diastolic 56–76; PULSE 72–114; RESP 18–21; TEMP 96.8–99.4; O2SAT 95–100
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
[2016-05-19] MEDS ORDERED: MORPHINE SULFATE 4 MG/ML INJ IV PUSH PRN (00:30)
[2016-05-19] MEDS: HYDROmorphone HCL PF 1 MG/ML VIAL IV PUSH PRN ×4 (02:10→22:48)
[2016-05-19] MEDS ORDERED: ALPRAZolam 0.25 MG TAB PO ONE (04:30)
[2016-05-19 05:18] LABS: AUTOMATED NEUTROPHIL # 8.5 TH/MM3 (1.8-7.7); BASOPHIL # 0.1 TH/MM3 (0-0.2); BASOPHIL % 0.5 % (0.0-2.0); EOSINOPHIL # 0.1 TH/MM3 (0-0.4); EOSINOPHIL % 0.5 % (0.0-4.0); HEMATOCRIT 39.6 % (39.0-51.0); HEMO FLAGS DIFF FINAL; LYMPH % 20.8 % (9.0-44.0); LYMPHOCYTE # 2.6 TH/MM3 (1.0-4.8); MEAN CELL VOLUME 87.8 FL (80.0-100.0); MEAN CORPUSCULAR HEMOGLOBIN 30.4 PG (27.0-34.0); MEAN CORPUSCULAR HGB CONC 34.6 % (32.0-36.0); MONO % 9.5 % (0.0-8.0); NEUT % 68.7 % (16.0-70.0); PLATELET COUNT 260 TH/MM3 (150-450); RED BLOOD COUNT 4.51 MIL/MM3 (4.50-5.90); RED CELL DISTRIBUTION WIDTH 13.7 % (11.6-17.2); WHITE BLOOD COUNT 12.4 TH/MM3 (4.0-11.0)
[2016-05-19 05:55] LABS: BICARBONATE 25.3 MEQ/L (21.0-32.0); POTASSIUM 3.7 MEQ/L (3.5-5.1)
[2016-05-19] MEDS: SODIUM CHLORIDE 0.9% FLUSH 5 ML FLUSH FLUSH SCH ×2 (08:00→19:36)
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
[2016-05-19] MEDS: LACTOBACILLUS ACIDOPHILUS TAB PO SCH ×3 (09:15→18:14)
[2016-05-19] MEDS: NS + KCL 20 MEQ INJ 1,000 ML IV SCH ×2 (09:19→19:01)
[2016-05-19] MEDS ORDERED: ACETYLCYSTEINE 20% 6,000 MG/30 ML ORAL SOLN VIAL PO ONE (10:45)
--- NOTE | 2016-05-19 10:47 | RADRPT ---
EXAM DATE/TIME: 05/19/2016 08:48 [facility] COMPARISON: No previous studies available for comparison. INDICATIONS : Abdominal pain. Post appendectomy and colonoscopy one week. MEDICAL HISTORY : Irritable bowel syndrome. Melena. Anemia. Viral meninigitis. SURGICAL HISTORY : Appendectomy. ENCOUNTER: Initial ACUITY: 1 week PAIN SCORE: 7/10 LOCATION: Bilateral upper quadrant MEASUREMENTS: LIVER: 16.6 cm length COMMON DUCT: 4 mm RIGHT KIDNEY: 10.6 x 5.5 x 5.5 cm LEFT KIDNEY: 10.1 x 5.4 x 5.6 cm SPLEEN: 10.7 cm length AORTA: 1.6cm maximal FINDINGS: LIVER: Normal echotexture without focal lesion or ductal dilatation. COMMON DUCT: No intraluminal mass or stone visualized. GALLBLADDER: Contains no stones, demonstrates no wall thickening or pericholecystic fluid. PANCREAS: The visualized portions are within normal limits. RIGHT KIDNEY: No hydronephrosis, stone or mass. LEFT KIDNEY: No hydronephrosis, stone or mass. SPLEEN: No focal lesion. AORTA: Non aneurysmal. IVC: Within normal limits. CONCLUSION: Normal examination. Eligio Dunne MD on May 19, 2016 at 10:40 Board Certified Radiologist. This report was verified electronically.
[2016-05-19] MEDS: HYDROmorphone HCL 2 MG TAB PO PRN ×2 (12:03→19:43)
[2016-05-19] MEDS ORDERED: PEG (High)/E-LYTE SOLN 4000 ML BTL PO ONE (16:00)
[2016-05-19] MEDS: chlordiazePOXIDE/CLIDINIUM 5 MG/2.5 MG CAP PO SCH (17:10)
[2016-05-19] MEDS: hydrOXYzine HCL 25 MG TAB PO PRN (18:15)
[2016-05-19 19:39] LABS: C. DIFF EPI 027 PRESUMPTIVE NEGATIVE (NEGATIVE); C. DIFF TOXIN PCR NEGATIVE (NEGATIVE)
[2016-05-19 22:45] LABS: BLOOD, URINE NEG (NEG); GLUCOSE,URINE NEG (NEG); KETONE, URINE TRACE mg/dL (NEG); MUCUS URINE FEW /lpf (OCC); NITRITE,URINE NEG (NEG); PH, URINE 5.5 (5.0-8.5); URINE COLOR LIGHT-YELLOW (YELLW/STRAW)
[2016-05-19 22:53] LABS: COMMENT (UR) CULT NOT INDICATED; CULTURE IF INDICATED CULT NOT INDICATED
[2016-05-20 00:27] VITALS: BP 104/60; PULSE 75; RESP 21; TEMP 98.7; O2SAT 99
[2016-05-20] MEDS: NS + KCL 20 MEQ INJ 1,000 ML IV SCH ×2 (04:57→12:32)
[2016-05-20] MEDS: HYDROmorphone HCL 2 MG TAB PO PRN ×4 (05:04→20:01)
[2016-05-20 07:05] LABS: AUTOMATED NEUTROPHIL # 8.3 TH/MM3 (1.8-7.7); BASOPHIL # 0.1 TH/MM3 (0-0.2); BASOPHIL % 0.6 % (0.0-2.0); EOSINOPHIL # 0.1 TH/MM3 (0-0.4); EOSINOPHIL % 1.2 % (0.0-4.0); HEMATOCRIT 35.1 % (39.0-51.0); HEMO FLAGS DIFF FINAL; LYMPH % 17.9 % (9.0-44.0); LYMPHOCYTE # 2.1 TH/MM3 (1.0-4.8); MEAN CELL VOLUME 87.3 FL (80.0-100.0); MEAN CORPUSCULAR HEMOGLOBIN 30.1 PG (27.0-34.0); MEAN CORPUSCULAR HGB CONC 34.5 % (32.0-36.0); MONO % 7.6 % (0.0-8.0); NEUT % 72.7 % (16.0-70.0); PLATELET COUNT 200 TH/MM3 (150-450); RED BLOOD COUNT 4.02 MIL/MM3 (4.50-5.90); RED CELL DISTRIBUTION WIDTH 13.4 % (11.6-17.2); WHITE BLOOD COUNT 11.5 TH/MM3 (4.0-11.0)
[2016-05-20 07:26] LABS: ALT (GPT) 84 U/L (12-78); ANION GAP 9 MEQ/L (5-15); AST (GOT) 33 U/L (15-37); BICARBONATE 26.3 MEQ/L (21.0-32.0); BLOOD UREA NITROGEN 7 MG/DL (7-18); CHLORIDE 107 MEQ/L (98-107); GLOMERULAR FILTRATION RATE 123 ML/MIN (>89); MAGNESIUM 1.7 MG/DL (1.5-2.5); POTASSIUM 3.8 MEQ/L (3.5-5.1); SODIUM (NA) 142 MEQ/L (136-145)
[2016-05-20 07:44] LABS: ALKALINE PHOSPHATASE 94 U/L (45-117); TOTAL BILIRUBIN ADULT 0.5 MG/DL (0.2-1.0)
[2016-05-20 07:51] VITALS: BP 116/62; PULSE 91; RESP 18; TEMP 97.4; O2SAT 99
[2016-05-20] MEDS: SODIUM CHLORIDE 0.9% FLUSH 5 ML FLUSH FLUSH SCH ×2 (08:18→20:57)
[2016-05-20] MEDS: chlordiazePOXIDE/CLIDINIUM 5 MG/2.5 MG CAP PO SCH ×3 (08:21→16:59)
[2016-05-20] MEDS: LACTOBACILLUS ACIDOPHILUS TAB PO SCH ×3 (08:22→16:59)
[2016-05-20] MEDS: HYDROmorphone HCL PF 1 MG/ML VIAL IV PUSH PRN ×3 (08:23→21:11)
[2016-05-20] MEDS ORDERED: PILL SPLITTER OTHER PRN (11:30)
--- NOTE | 2016-05-20 11:32 | HHI.GIFU ---
Subjective Remarks Pt appears anxious. States he continues to have constant abdominal pain- described as cramping that varies in intensity. States he has had this off and on since his last hospitalization. Reports that he had significant discomfort after eating a few sips of the chicken broth this am. Reports loose/liquid bm last night, none so far today. Reports no improvement. (Sharon Jolly) Objective Vitals I&O Vital Signs Date Time Temp Pulse Resp B/P Pulse Ox O2 Delivery O2 Flow Rate FiO2 05/20/16 08:59 18 05/20/16 08:17 18 05/20/16 07:51 97.4 91 18 116/62 99 05/20/16 00:27 98.7 75 21 104/60 99 05/19/16 19:56 98.0 73 21 129/76 100 05/19/16 16:34 99.4 05/19/16 15:30 114 119/63 05/19/16 11:35 98.0 72 18 129/72 95 I/O 05/19/16 05/19/16 05/19/16 05/20/16 05/20/16 05/20/16 07:00 15:00 23:00 07:00 15:00 23:00 Intake Total 1065 ml Balance 1065 ml Intake IV Total 1065 ml # Voids 1 Laboratory Laboratory Tests Test 05/19/16 05/19/16 05/20/16 16:00 22:21 06:16 Stool C. difficile Toxin (PCR) NEGATIVE Stl C. difficile Toxin PRESUMPTIVE Epiderm 027 NEGATIVE Urine Color LIGHT-YELLOW Urine Turbidity CLEAR Urine pH 5.5 Urine Specific [place] 1.011 Urine Protein NEG Urine Glucose (UA) NEG Urine Ketones TRACE Urine Occult Blood NEG Urine Nitrite NEG Urine Bilirubin NEG Urine Urobilinogen LESS THAN 2.0 Urine Leukocyte Esterase NEG Urine WBC LESS THAN 1 Urine Mucus FEW Microscopic Urinalysis Comment CULT NOT INDICATED White Blood Count 11.5 Red Blood Count 4.02 Hemoglobin 12.1 Hematocrit 35.1 Mean Corpuscular Volume 87.3 Mean Corpuscular Hemoglobin 30.1 Mean Corpuscular Hemoglobin 34.5 Concent Red Cell Distribution Width 13.4 Platelet Count 200 Mean Platelet Volume 8.9 Neutrophils (%) (Auto) 72.7 Lymphocytes (%) (Auto) 17.9 Monocytes (%) (Auto) 7.6 Eosinophils (%) (Auto) 1.2 Basophils (%) (Auto) 0.6 Neutrophils # (Auto) 8.3 Lymphocytes # (Auto) 2.1 Monocytes # (Auto) 0.9 Eosinophils # (Auto) 0.1 Basophils # (Auto) 0.1 CBC Comment DIFF FINAL Differential Comment Sodium Level 142 Potassium Level 3.8 Chloride Level 107 Carbon Dioxide Level 26.3 Anion Gap 9 Blood Urea Nitrogen 7 Creatinine 0.77 Estimat Glomerular Filtration 123 Rate Random Glucose 82 Calcium Level 8.4 Magnesium Level 1.7 Total Bilirubin 0.5 Aspartate Amino Transf 33 (AST/SGOT) Alanine Aminotransferase 84 (ALT/SGPT) Alkaline Phosphatase 94 Total Protein 6.1 Albumin 3.2 Imaging Last Impressions Abdomen Ultrasound 05/19/16 0000 Signed Impressions: Service Date/Time: May 08:48 - CONCLUSION: Normal examination. Eligio Dunne MD Abdomen/Pelvis CT 05/18/164 Signed Impressions: Service Date/Time: Wednesday, May 18, 2016 22:43 - CONCLUSION: Normal examination. Jarod Rae MD Physical Exam HEENT: Normocephalic; atraumatic; no jaundice. CHEST: CTA CARDIAC: RRR ABDOMEN: Soft, nondistended, mild diffuse tenderness; no hepatosplenomegaly; bowel sounds are present in all four quadrants. EXTREMITIES: No clubbing, cyanosis, or edema. SKIN: Normal; no rash; no jaundice. REVENUE TAX SPECIALIST: No focal deficits; alert and oriented times three. (Sharon Jolly [facility]) Assessment and Plan Plan ASSESSMENT: - Acute on chronic abdominal pain, likely IBS. Patient had recent admission (05/06- 05/11), during that stay patient underwent diagnostic laparoscopy, laparoscopic appendectomy on 05/06/[address] Loza. He also was evaluated by our GI services and under went EGD/Colonoscopy (05/09/16)----> Minimal gastritis from antrum, irregular z line bx from EG junction, normal endoscopy , retroflexed views revealed no abnormalities; normal exam, random bx from sigmoid and cecum to R/O colitis, some stool throughout the colon, retroflexed views revealed no abnormalities, revealed no abnormalities of the rectum, BX showed esophagitis, but negative for colitis or significant histopathologic abnormalities. His symptoms have seem to be aggravated by stress, but has had more severe and frequent episodes since his recent surgery. Abdomen/ Pelvis CT (05/18/16)----> Normal examination. Abdomen Ultrasound (05/19/16)---> Normal examination. C/O nausea and diffuse abdominal pain described as cramping, aggravated by any po intake. States he had severe pain after a few sips of chicken broth. He had a loose stool last night, none today. No improvement with Librax/PPI/Zofran. - One episode of bright red bleeding 2 days ago, none since that time. S/P recent colonoscopy as above. HH stable. - Elevated LFTs, mild. CT/US/Hepatitis panel unremarkable. LFTs improving. T. Bili 0.5, AST 33, ALT 84, Alk Phsoph 94. He denies alcohol, denies illicit drug use, he has been taking hydrocodone as prescribed since last admission, toxicology ( Acetaminophen < 2). - S/P Lap. Appendectomy, MARIE, 05/06. - Leukocytosis. Improved. PLAN: - Full liquids - Cont. PPI - Cont. Librax - Liver workup - Supportive care - Suspect symptoms may be related to IBS. However, given the fact that he reports ongoing pain/inability to tolerate po since his recent surgery, will consult Dr. Valle for evaluation. - Further recommendations to follow after pt is seen by Dr. Cuellar and myself and this note is written on his behalf. (Sharon Jolly) Physician Comments Seen and examined with JOSEPH, elevated LFTs improving. Patel in progress. (Christa Cuellar MD) Sharon Jolly May 20, 2016 11:32 Christa Cuellar MD May 20, 2016 12:38
[2016-05-20 11:37] VITALS: BP 124/61; PULSE 87; RESP 19; TEMP 97.8; O2SAT 99
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
--- NOTE | 2016-05-20 15:08 | EKG ---
Date Performed: 05/19/2016 Time Performed: 22:42:18 PTAGE: 25 years EKG: Sinus rhythm NORMAL ECG NO PREVIOUS TRACING DOCTOR: Argelia Warren Interpretating Date/Time 05/20/2016 15:07:28
[2016-05-20 15:34] VITALS: BP 119/70; PULSE 98; RESP 18; TEMP 97.5; O2SAT 100
--- NOTE | 2016-05-20 15:49 | PD.CONS ---
cc: Talon Valle MD HPI Service General Surgery Consult Requested By Sharon RUIZ Reason for Consult Abdominal Pain s/p lap appy 2 weeks ago Primary Care Physician Karina Amos MD History of Present Illness This is a 25 year old male with a past medical history of IBS who underwent a laparoscopic appendectomy by Dr. Valle about 2 weeks ago. The patient was also evaluated by GI with an EGD/Colonoscopy which showed gastritis. The patient was discharged home and was scheduled to follow up with Dr. Valle today in the office. He arrived to the ED 2 days ago with generalized abdominal pain. A CT of the abdomen/pelvis was obtained as well as an US of the abdomen all which were negative. He has had a mildly elevated WBC during the admission but afebrile. A General Surgery consultation was requested to evaluate abdominal pain. Review of Systems Constitutional: COMPLAINS OF: Weight loss, Chills Endocrine: DENIES: Polydipsia, Polyuria, Polyphagia Eyes: DENIES: Blurred vision, Diplopia Ears, nose, mouth, throat: DENIES: Hearing loss, Vertigo Respiratory: DENIES: Apneas, Cough, Snoring Cardiovascular: DENIES: Chest pain, Palpitations Gastrointestinal: COMPLAINS OF: Abdominal pain (generalized ), Diarrhea, Nausea , DENIES: Constipation, Vomiting Genitourinary: DENIES: Urinary incontinence, Urgency Musculoskeletal: DENIES: Joint pain Hematologic/lymphatic: DENIES: Bruising Immunologic/allergic: DENIES: Eczema Neurologic: DENIES: Abnormal gait, Headache Psychiatric: DENIES: Confusion, Mood changes, Depression Past Family Social History Past Medical History IBS Past Surgical History lap appy (May 2016) Reported Medications See chart Allergies: Coded Allergies: Morphine (Verified Allergy, Mild, HIVES, 05/19/16) Active Ordered Medications Current Medications Medications (Trade) Dose Ordered Sig/James Route Start Time Stop Time Status Last Admin (NS Flush) 2 ml UNSCH PRN FLUSH 05/18/16 23:15 05/19/16 15:56 (NS Flush) 2 ml BID FLUSH 05/19/16 09:00 (Zofran Inj) 4 mg Q6H PRN IVP 05/18/16 23:15 (Narcan Inj) 0.4 mg UNSCH PRN IV 05/18/16 23:15 Lactobacillus Acidophilus 1 tab 1 tab TID PO 05/19/16 09:00 05/20/16 12:26 (NS + KCl 20 Meq Inj) 1,000 ml @ 100 mls/hr Q10H IV 05/19/16 08:00 05/20/16 12:32 (Dilaudid) 1 mg Q4H PRN PO 05/19/16 08:00 05/20/16 10:26 (Dilaudid Pf Inj) 0.5 mg Q4H PRN IV PUSH 05/19/16 09:00 05/20/16 12:27 (Librax 5-2.5 Mg) 1 cap TIDAC PO 05/19/16 17:00 05/20/16 12:26 (Atarax) 25 mg Q8H PRN PO 05/19/16 15:00 05/19/16 18:15 (Pill Splitter) 1 ea UNSCH PRN OTHER 05/20/16 11:30 Family History Non-contributory Social History Denies smoking Occasional use of ETOH Denies illicit drug use Physical Exam Vital Signs Vital Signs Date Time Temp Pulse Resp B/P Pulse Ox O2 Delivery O2 Flow Rate FiO2 05/20/16 15:34 97.5 98 18 119/70 100 05/20/16 13:01 18 05/20/16 11:37 97.8 87 19 124/61 99 05/20/16 08:17 18 05/20/16 07:51 97.4 91 18 116/62 99 05/20/16 00:27 98.7 75 21 104/60 99 05/19/16 19:56 98.0 73 21 129/76 100 05/19/16 16:34 99.4 Physical Exam GENERAL: Young 25 year old male resting in bed SKIN: Warm and dry. HEAD: Atraumatic. Normocephalic. EYES: Pupils equal and round. No scleral icterus. No injection or drainage. ENT: No nasal bleeding or discharge. Mucous membranes pink and moist. NECK: Trachea midline. CARDIOVASCULAR: Regular rate and rhythm. RESPIRATORY: No accessory muscle use. Clear to auscultation. Breath sounds equal bilaterally. GASTROINTESTINAL: Abdomen thin; soft, tender in all 4 quadrants; +bowel sounds MUSCULOSKELETAL: Extremities without clubbing, cyanosis, or edema. No obvious deformities. NEUROLOGICAL: Awake and alert. No obvious cranial nerve deficits. Motor grossly within normal limits. Five out of 5 muscle strength in the arms and legs. Normal speech. PSYCHIATRIC: Appropriate mood and affect; insight and judgment normal. Laboratory Laboratory Tests Test 05/19/16 05/19/16 05/20/16 16:00 22:21 06:16 Stool C. difficile Toxin (PCR) NEGATIVE Stl C. difficile Toxin PRESUMPTIVE Epiderm 027 NEGATIVE Urine Color LIGHT-YELLOW Urine Turbidity CLEAR Urine pH 5.5 Urine Specific [place] 1.011 Urine Protein NEG Urine Glucose (UA) NEG Urine Ketones TRACE Urine Occult Blood NEG Urine Nitrite NEG Urine Bilirubin NEG Urine Urobilinogen LESS THAN 2.0 Urine Leukocyte Esterase NEG Urine WBC LESS THAN 1 Urine Mucus FEW Microscopic Urinalysis Comment CULT NOT INDICATED White Blood Count 11.5 Red Blood Count 4.02 Hemoglobin 12.1 Hematocrit 35.1 Mean Corpuscular Volume 87.3 Mean Corpuscular Hemoglobin 30.1 Mean Corpuscular Hemoglobin 34.5 Concent Red Cell Distribution Width 13.4 Platelet Count 200 Mean Platelet Volume 8.9 Neutrophils (%) (Auto) 72.7 Lymphocytes (%) (Auto) 17.9 Monocytes (%) (Auto) 7.6 Eosinophils (%) (Auto) 1.2 Basophils (%) (Auto) 0.6 Neutrophils # (Auto) 8.3 Lymphocytes # (Auto) 2.1 Monocytes # (Auto) 0.9 Eosinophils # (Auto) 0.1 Basophils # (Auto) 0.1 CBC Comment DIFF FINAL Differential Comment Sodium Level 142 Potassium Level 3.8 Chloride Level 107 Carbon Dioxide Level 26.3 Anion Gap 9 Blood Urea Nitrogen 7 Creatinine 0.77 Estimat Glomerular Filtration 123 Rate Random Glucose 82 Calcium Level 8.4 Magnesium Level 1.7 Total Bilirubin 0.5 Aspartate Amino Transf 33 (AST/SGOT) Alanine Aminotransferase 84 (ALT/SGPT) Alkaline Phosphatase 94 Total Protein 6.1 Albumin 3.2 Date/Time Procedure Status Source Growth 05/19/16 16:00 Ordered Stool Stool Pending Result Diagram: 05/21/16 0551 05/22/16 0511 Imaging Last 48 hours Impressions Abdomen Ultrasound 05/19/16 0000 Signed Impressions: Service Date/Time: May 08:48 - CONCLUSION: Normal examination. Eligio Dunne MD Abdomen/Pelvis CT 05/18/160 Signed Impressions: Service Date/Time: Wednesday, May 18, 2016 22:43 - CONCLUSION: Normal examination. Jarod Rae MD Assessment and Plan Assessment and Plan 25 year old male s/p lap appy [address] Valle; now with generalized abdominal pain -Likely IBS related abdominal pain -GI following -Follow up on stool studies -WBC mildly elevated; recheck tomorrow -Full liquids; advance as tolerated -No indication for surgery Discussed Condition With Dr. Valle Aleah Miky Tony Attending Statement pt seen at bedside c/o persistent pain unlikely related to the surgery likely chronic no further surgical indication will defer to GI and medicine for further diagnostic and tx plan Attestation The exam, history, and the medical decision-making described in the above note were completed with the assistance of the mid-level provider. I reviewed and agree with the findings presented. I attest that I had a [id number] encounter with the patient on the same day, and personally performed and documented my assessment and findings in the medical record. Ekta Knutson May 20, 2016 15:49 Talon Valle MD May 24, 2016 22:37
[2016-05-20 16:31] LABS: TRANSFERRIN IRON PROFILE 215 MG/DL (200-360)
[2016-05-20 16:34] LABS: FERRITIN 322 NG/ML (26-388)
[2016-05-20] MEDS: IBUPROFEN 400 MG TAB PO PRN (18:10)
[2016-05-20 19:13] VITALS: BP 134/58; PULSE 94; RESP 20; TEMP 98; O2SAT 97
[2016-05-20] MEDS: hydrOXYzine HCL 25 MG TAB PO PRN (20:09)
[2016-05-21] VITALS (7 sets, daily range): BP systolic 102–124; BP diastolic 55–69; PULSE 74–92; RESP 18–20; TEMP 97.2–98.1; O2SAT 95–100
[2016-05-21] MEDS: HYDROmorphone HCL 2 MG TAB PO PRN ×4 (02:12→18:38)
[2016-05-21] MEDS: NS + KCL 20 MEQ INJ 1,000 ML IV SCH ×3 (02:13→20:01)
[2016-05-21] MEDS: hydrOXYzine HCL 25 MG TAB PO PRN ×3 (04:12→20:01)
[2016-05-21] MEDS: HYDROmorphone HCL PF 1 MG/ML VIAL IV PUSH PRN ×5 (04:24→22:05)
[2016-05-21 07:00] LABS: AUTOMATED NEUTROPHIL # 4.3 TH/MM3 (1.8-7.7); BASOPHIL # 0.1 TH/MM3 (0-0.2); BASOPHIL % 0.8 % (0.0-2.0); EOSINOPHIL # 0.1 TH/MM3 (0-0.4); EOSINOPHIL % 1.2 % (0.0-4.0); HEMATOCRIT 36.5 % (39.0-51.0); HEMO FLAGS DIFF FINAL; LYMPH % 27.6 % (9.0-44.0); LYMPHOCYTE # 1.9 TH/MM3 (1.0-4.8); MEAN CELL VOLUME 87.3 FL (80.0-100.0); MEAN CORPUSCULAR HEMOGLOBIN 30.6 PG (27.0-34.0); MEAN CORPUSCULAR HGB CONC 35.1 % (32.0-36.0); MONO % 8.8 % (0.0-8.0); NEUT % 61.6 % (16.0-70.0); PLATELET COUNT 207 TH/MM3 (150-450); RED BLOOD COUNT 4.18 MIL/MM3 (4.50-5.90); RED CELL DISTRIBUTION WIDTH 13.1 % (11.6-17.2)
[2016-05-21 07:10] LABS: BICARBONATE 26.2 MEQ/L (21.0-32.0); INDIRECT BILIRUBIN 0.3 MG/DL (0.0-0.8); POTASSIUM 3.3 MEQ/L (3.5-5.1); TOTAL BILIRUBIN ADULT 0.4 MG/DL (0.2-1.0)
[2016-05-21] MEDS ORDERED: POTASSIUM CHLORIDE 20 MEQ CONTROLLED RELEASE TAB PO ONE (09:00)
[2016-05-21] MEDS: SODIUM CHLORIDE 0.9% FLUSH 5 ML FLUSH FLUSH SCH ×2 (09:00→21:00)
[2016-05-21] MEDS: chlordiazePOXIDE/CLIDINIUM 5 MG/2.5 MG CAP PO SCH ×3 (09:11→17:07)
[2016-05-21] MEDS: LACTOBACILLUS ACIDOPHILUS TAB PO SCH ×3 (09:11→17:07)
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
--- NOTE | 2016-05-21 16:47 | HHI.GIFU ---
Subjective Remarks Laying in bed complaining of the same discomfort and lack of appetite Objective Vitals I&O Vital Signs Date Time Temp Pulse Resp B/P Pulse Ox O2 Delivery O2 Flow Rate FiO2 05/21/16 15:30 97.9 81 20 105/57 97 05/21/16 13:11 5 05/21/16 11:20 97.2 74 20 115/69 96 05/21/16 07:22 97.9 74 18 102/64 95 05/21/16 04:02 97.9 75 20 124/66 98 05/21/16 03:12 12 05/21/16 00:27 97.4 92 20 119/55 100 05/20/16 19:13 98.0 94 20 134/58 97 05/20/16 19:10 12 I/O 05/20/16 05/20/16 05/20/16 05/21/16 05/21/16 05/21/16 07:00 15:00 23:00 07:00 15:00 23:00 Intake Total 1240 ml Output Total 360 ml Balance 880 ml Intake Oral 240 ml IV Total 1000 ml Output Urine Total 360 ml # Voids 1 1 # Bowel Movements 1 Laboratory Laboratory Tests Test 05/21/16 05:51 White Blood Count 7.0 Red Blood Count 4.18 Hemoglobin 12.8 Hematocrit 36.5 Mean Corpuscular Volume 87.3 Mean Corpuscular Hemoglobin 30.6 Mean Corpuscular Hemoglobin 35.1 Concent Red Cell Distribution Width 13.1 Platelet Count 207 Mean Platelet Volume 9.3 Neutrophils (%) (Auto) 61.6 Lymphocytes (%) (Auto) 27.6 Monocytes (%) (Auto) 8.8 Eosinophils (%) (Auto) 1.2 Basophils (%) (Auto) 0.8 Neutrophils # (Auto) 4.3 Lymphocytes # (Auto) 1.9 Monocytes # (Auto) 0.6 Eosinophils # (Auto) 0.1 Basophils # (Auto) 0.1 CBC Comment DIFF FINAL Differential Comment Sodium Level 143 Potassium Level 3.3 Chloride Level 108 Carbon Dioxide Level 26.2 Anion Gap 9 Blood Urea Nitrogen 6 Creatinine 0.74 Estimat Glomerular Filtration 129 Rate Random Glucose 73 Calcium Level 8.2 Total Bilirubin 0.4 Direct Bilirubin 0.1 Indirect Bilirubin 0.3 Aspartate Amino Transf 25 (AST/SGOT) Alanine Aminotransferase 70 (ALT/SGPT) Alkaline Phosphatase 96 Total Protein 6.6 Albumin 3.3 Date/Time Procedure Status Source Growth 05/20/16 19:10 - Final Complete Stool Stool NO ENTERIC PATHOGENS DETECTED BY PCR... 05/19/16 16:00 Ordered Stool Stool Pending Physical Exam HEENT: Normocephalic; atraumatic; no jaundice. CHEST: CTA CARDIAC: RRR ABDOMEN: Soft, nondistended, mild diffuse tenderness; no hepatosplenomegaly; bowel sounds are present in all four quadrants. EXTREMITIES: No clubbing, cyanosis, or edema. SKIN: Normal; no rash; no jaundice. RUNNING INSTRUCTOR: No focal deficits; alert and oriented times three. Assessment and Plan Plan ASSESSMENT: - Acute on chronic abdominal pain, likely IBS. Patient had recent admission (05/06- 05/11), during that stay patient underwent diagnostic laparoscopy, laparoscopic appendectomy on 05/06/[address] Loza. He also was evaluated by our GI services and under went EGD/Colonoscopy (05/09/16)----> Minimal gastritis from antrum, irregular z line bx from EG junction, normal endoscopy , retroflexed views revealed no abnormalities; normal exam, random bx from sigmoid and cecum to R/O colitis, some stool throughout the colon, retroflexed views revealed no abnormalities, revealed no abnormalities of the rectum, BX showed esophagitis, but negative for colitis or significant histopathologic abnormalities. His symptoms have seem to be aggravated by stress, but has had more severe and frequent episodes since his recent surgery. Abdomen/ Pelvis CT (05/18/16)----> Normal examination. Abdomen Ultrasound (05/19/16)---> Normal examination. C/O nausea and diffuse abdominal pain described as cramping, aggravated by any po intake. States he had severe pain after a few sips of chicken broth. He had a loose stool last night, none today. No improvement with Librax/PPI/Zofran. - One episode of bright red bleeding 2 days ago, none since that time. S/P recent colonoscopy as above. HH stable. - Elevated LFTs, mild. CT/US/Hepatitis panel unremarkable. LFTs improving. T. Bili 0.5, AST 33, ALT 84, Alk Phsoph 94. He denies alcohol, denies illicit drug use, he has been taking hydrocodone as prescribed since last admission, toxicology ( Acetaminophen < 2). - S/P Lap. Appendectomy, MARIE, 05/06. - Leukocytosis. Improved. PLAN: - Full liquids - Cont. PPI - Cont. Librax - Liver workup - Supportive care - Suspect symptoms may be related to IBS. However, given the fact that he reports ongoing pain/inability to tolerate po since his recent surgery, will consult Dr. Valle for evaluation. -Await psychological evaluation Demetrius Landeros MD May 21, 2016 16:47
[2016-05-22] MEDS: HYDROmorphone HCL PF 1 MG/ML VIAL IV PUSH PRN ×3 (03:30→13:40)
[2016-05-22 03:45] VITALS: BP 136/71; PULSE 87; RESP 19; TEMP 98.1; O2SAT 92; O2SAT 97
[2016-05-22] MEDS: IBUPROFEN 400 MG TAB PO PRN (03:51)
[2016-05-22] MEDS: hydrOXYzine HCL 25 MG TAB PO PRN ×2 (04:55→11:49)
[2016-05-22 06:09] LABS: BICARBONATE 27.1 MEQ/L (21.0-32.0); MAGNESIUM 1.9 MG/DL (1.5-2.5); POTASSIUM 3.7 MEQ/L (3.5-5.1)
[2016-05-22] MEDS: NS + KCL 20 MEQ INJ 1,000 ML IV SCH (06:14)
[2016-05-22 07:44] VITALS: BP 109/66; PULSE 73; RESP 20; TEMP 97.2; O2SAT 98
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
[2016-05-22] MEDS: SODIUM CHLORIDE 0.9% FLUSH 5 ML FLUSH FLUSH SCH (09:00)
[2016-05-22] MEDS: chlordiazePOXIDE/CLIDINIUM 5 MG/2.5 MG CAP PO SCH ×2 (09:34→11:49)
[2016-05-22] MEDS: LACTOBACILLUS ACIDOPHILUS TAB PO SCH ×2 (09:34→13:40)
[2016-05-22] MEDS: HYDROmorphone HCL 2 MG TAB PO PRN (10:16)
[2016-05-22 11:26] VITALS: BP 122/65; PULSE 74; RESP 20; TEMP 97.8; O2SAT 97
[2016-05-22] MEDS ORDERED: PERC5TAB12 PO (12:51)
[2016-05-22] MEDS ORDERED: clonazePAM 0.5 MG TAB PO ONE (13:15)
[2016-05-22] MEDS ORDERED: LIBRAX PO (13:16)
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
[2016-05-22] MEDS ORDERED: PROZ20CA11 PO (13:20)
[2016-05-22] MEDS ORDERED: CLON.5 PO (13:20)
[2016-05-22] MEDS ORDERED: TRAZ100T4 PO (13:20)
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
[2016-05-25 13:52] LABS: MITOCHONDRIAL ABS LESS THAN 20.0 U (())
[2016-07-12] MEDS ORDERED: PROZ20CA11 PO (08:55)
[2016-07-12] MEDS ORDERED: TRAZ100T4 PO (08:55)
[2016-07-12] MEDS ORDERED: BENT20TA PO (08:56)
[2016-07-27] MEDS ORDERED: FLUO40CA PO (10:53)
[2016-07-27] MEDS ORDERED: TRAZ100T4 PO (10:53)
[2016-07-27] MEDS ORDERED: BENT20TA PO (10:53)
[2016-07-27] MEDS ORDERED: ALPR1TAB3 PO (10:53)
[2016-07-27] MEDS ORDERED: PERC5TAB12 PO (10:56)
[2016-08-22] MEDS ORDERED: ALPR1TAB3 PO (14:10)
[2016-08-22] MEDS ORDERED: FLUO40CA PO (14:10)
[2016-08-22] MEDS ORDERED: PERC5TAB12 PO (14:10)
[2016-08-22] MEDS ORDERED: TRAZ100T6 PO (14:10)
== END 2016-05-22 15:09 | disposition home or self-care (01) ==
LOC: NEPA 18:33 → NEDA 23:19 → NEPHCDU 05-19 01:19
PROVIDERS: ADMIT Hospitalist; ATTEND Hospitalist
DX: R10.9 Unspecified abdominal pain (principal); R74.8 Abnormal levels of other serum enzymes; K58.0 Irritable bowel syndrome with diarrhea; D72.829 Elevated white blood cell count, unspecified; F43.10 Post-traumatic stress disorder, unspecified; K29.70 Gastritis, unspecified, without bleeding; E87.6 Hypokalemia; R65.10 Systemic inflammatory response syndrome (SIRS) of non-infectious origin without acute organ dysfunction; Z90.49 Acquired absence of other specified parts of digestive tract
CPT/HCPCS: 74177; 76700; 80048; 80053; 80074; 80076; 80307; 81001; 82103; 82105; 82390; 82728; 83520; 83540; 83550; 83605; 83690; 83735; 85025; 85610; 85730; 86038; 86256; 87493; 87506; 93005; 96361; 96374; 96375; 99285; G0378; J1170; J2270; J2405; J3480; J7030; Q9967

== ENCOUNTER 2016-06-30 10:06 | Emergency (ER) | payer SELFPAY ==
[~2016-06-30] VITALS: Ht 170.2 cm; Wt 58.1 kg
[~2016-06-30 10:06] MED LIST changes: +CLON.5 PO; +LIBRAX PO; +PERC5TAB12 PO; +PROZ20CA11 PO; +TRAZ100T4 PO
[2016-06-30 10:11] VITALS: BP 116/66; PULSE 96; RESP 16; TEMP 98; O2SAT 96
[2016-06-30] MEDS ORDERED: SODIUM CHLOR 0.9% 1000 ML INJ 1,000 ML IV ONE (10:30)
[2016-06-30] MEDS ORDERED: KETOROLAC TROMETHAMINE 30 MG/ML (IVP) VIAL IV PUSH ONE (10:30)
--- NOTE | 2016-06-30 10:31 | PD ---
HPI Chief Complaint: Abdominal Pain Time Seen by Provider: 10:16 Travel History International Travel<30 days: No Contact w/Intl Traveler<30days: No Traveled to known affect area: No History of Present Illness HPI This is a 25-year-old male who presents to the emergency department with a history of chronic abdominal pain. He recently had an appendectomy and pathology demonstrated some mucosal ulceration but no acute inflammation, and subsequently he was hospitalized for recurrent abdominal pain. He had a colonoscopy and endoscopy which were unrevealing. He's been diagnosed with irritable bowel syndrome and depression. He has made an appointment with a primary care physician but couldn't get into her yet, and subsequently has run out of his pain and depression medications. He says he took his last Percocet this morning. He says he's been having abdominal pain for 2 days, constant, moderate severity, starting at his belly button and radiating into the lower abdomen with no associated nausea, vomiting, fevers or chills. He says he's had some blood in his bowel movements which he's been having. He denies any thoughts of hurting himself or others. PFSH Past Medical History Anemia: Yes Blood Disorders: No Cancer: No Cardiovascular Problems: No Diminished Hearing: No Endocrine: No Gastrointestinal Disorders: Yes (IBS) Genitourinary: No Immune Disorder: No Musculoskeletal: No Neurologic: No Psychiatric: No Reproductive: No Respiratory: No Past Surgical History Abdominal Surgery: No Appendectomy: Yes (05/06/16) Cardiac Surgery: No Thoracic Surgery: No Other Surgery: Yes ([facility]) Social History Alcohol Use: Yes ("HERE AND THERE, SLIGHT OCCASION") Tobacco Use: No ("E-CIG ONLY" TRIED TOBACCO SMOKING A FEW TIMES EARLIER IN LIFE) Substance Use: No Allergies-Medications (Allergen,Severity, Reaction): Coded Allergies: Morphine (Verified Allergy, Mild, HIVES, 06/30/16) Reported Meds & Prescriptions Reported Meds & Active Scripts Active Reported Bentyl (Dicyclomine HCl) 20 Mg Tab 20 Mg PO TID PRN Review of Systems Except as stated in HPI: all other systems reviewed are Neg Physical Exam Narrative GENERAL: Chronically unwell-appearing SKIN: Focused skin assessment warm and dry. HEAD: Atraumatic. Normocephalic. EYES: Eyes are sunken. Pupils equal and round. No injection or drainage. ENT: Moist mucous membranes NECK: Trachea midline. CARDIOVASCULAR: Regular rate and rhythm. No murmur appreciated. RESPIRATORY: Clear to auscultation. Breath sounds equal bilaterally. GASTROINTESTINAL: Abdomen soft, tender to palpation in the lower abdomen with no rebound or guarding. MUSCULOSKELETAL: No obvious deformities. NEUROLOGICAL: Awake and alert. No obvious cranial nerve deficits. No dysarthria or aphasia. No upper or lower extremity drift. No upper extremity ataxia. Visual reyes intact. PSYCHIATRIC: Poor eye contact, flat affect, depressed mood, no suicidal ideation Data Data Last Documented VS Vital Signs Date Time Temp Pulse Resp B/P Pulse Ox O2 Delivery O2 Flow Rate FiO2 06/30/16 10:11 98.0 96 16 116/66 96 Orders Complete Blood Count With Diff (06/30/16 10:28) Comprehensive Metabolic Panel (06/30/16 10:28) ^ Insert Iv (06/30/16 10:28) Ketorolac Inj (Toradol Inj) (06/30/16 10:30) Sodium Chlor 0.9% 1000 Ml Inj (Ns 1000 M (06/30/16 10:30) Ondansetron Inj (Zofran Inj) (06/30/16 10:45) Labs Laboratory Tests Test 06/30/16 10:35 White Blood Count 7.5 TH/MM3 Red Blood Count 4.71 MIL/MM3 Hemoglobin 14.2 GM/DL Hematocrit 42.3 % Mean Corpuscular Volume 89.8 FL Mean Corpuscular Hemoglobin 30.2 PG Mean Corpuscular Hemoglobin 33.6 % Concent Red Cell Distribution Width 12.5 % Platelet Count 225 TH/MM3 Mean Platelet Volume 8.8 FL Neutrophils (%) (Auto) 70.6 % Lymphocytes (%) (Auto) 18.9 % Monocytes (%) (Auto) 7.8 % Eosinophils (%) (Auto) 1.5 % Basophils (%) (Auto) 1.2 % Neutrophils # (Auto) 5.3 TH/MM3 Lymphocytes # (Auto) 1.4 TH/MM3 Monocytes # (Auto) 0.6 TH/MM3 Eosinophils # (Auto) 0.1 TH/MM3 Basophils # (Auto) 0.1 TH/MM3 CBC Comment DIFF FINAL Differential Comment Sodium Level 144 MEQ/L Potassium Level 4.1 MEQ/L Chloride Level 108 MEQ/L Carbon Dioxide Level 31.5 MEQ/L Anion Gap 5 MEQ/L Blood Urea Nitrogen 13 MG/DL Creatinine 0.89 MG/DL Estimat Glomerular Filtration 104 ML/MIN Rate Random Glucose 90 MG/DL Calcium Level 8.8 MG/DL Total Bilirubin 0.3 MG/DL Aspartate Amino Transf 23 U/L (AST/SGOT) Alanine Aminotransferase 25 U/L (ALT/SGPT) Alkaline Phosphatase 117 U/L Total Protein 7.7 GM/DL Albumin 4.0 GM/DL MDM Medical Decision Making Medical Screen Exam Complete: Yes Emergency Medical Condition: Yes Interpretation(s) Afebrile, mild tachycardia, normotensive No leukocytosis Electrolytes are reassuring Differential Diagnosis Gastritis, peptic ulcer disease, inflammatory bowel disease, irritable bowel syndrome, chronic abdominal pain, depression Narrative Course This is a 25-year-old male who presents to the emergency department for chronic abdominal discomfort. He had an appendectomy in May of this year and his appendix pathology demonstrated some mucosal ulceration but no acute inflammation. That was unlikely the source of his symptoms at that time. He's had a complete workup with GI including endoscopy and colonoscopy which have been unremarkable. He was diagnosed and treated for depression on his last visit to the hospital. He was placed on a monitor and an IV was established. Labs are obtained which were all reassuring. I don't suspect an acute surgical etiology of the patient's symptoms. Patient does repeatedly ask for something stronger than pain medications and he is requesting refills of his opiates. I do have a suspicion that he is displaying some drug-seeking behavior. Patient will be discharged home. I said I would refill any of his prescriptions that were noncontrolled substances. Diagnosis Primary Impression: Chronic abdominal pain Patient Instructions: General Instructions Additional Instructions: If you develop severe or worsening abdominal pain, fever>100.4, persistent vomiting or inability to eat or drink return to the emergency department immediately. Follow up with your primary care physician in 1-2 days for a check-up. Med/Other Pt SpecificInfo: Prescription(s) given Scripts Fluoxetine (Prozac)20 Mg Cap20 Mg PO DAILY #30 CAP Ref 0 Prov:Kellee Gaines MD 06/30/16 Trazodone 100 Mg [id number] Mg PO HS #30 TAB Ref 0 Prov:Kellee Gaines MD 06/30/16 Disposition: 01 DISCHARGE HOME Condition: Stable Highet,Kellee H. MD Jun 30, 2016 10:31
[2016-06-30] MEDS ORDERED: ONDANSETRON HCL 4 MG/2 ML VIAL IV ONE (10:45)
[2016-06-30 10:51] LABS: AUTOMATED NEUTROPHIL # 5.3 TH/MM3 (1.8-7.7); BASOPHIL # 0.1 TH/MM3 (0-0.2); BASOPHIL % 1.2 % (0.0-2.0); EOSINOPHIL # 0.1 TH/MM3 (0-0.4); EOSINOPHIL % 1.5 % (0.0-4.0); HEMATOCRIT 42.3 % (39.0-51.0); HEMO FLAGS DIFF FINAL; LYMPH % 18.9 % (9.0-44.0); LYMPHOCYTE # 1.4 TH/MM3 (1.0-4.8); MEAN CELL VOLUME 89.8 FL (80.0-100.0); MEAN CORPUSCULAR HEMOGLOBIN 30.2 PG (27.0-34.0); MEAN CORPUSCULAR HGB CONC 33.6 % (32.0-36.0); MONO % 7.8 % (0.0-8.0); NEUT % 70.6 % (16.0-70.0); PLATELET COUNT 225 TH/MM3 (150-450); RED BLOOD COUNT 4.71 MIL/MM3 (4.50-5.90); RED CELL DISTRIBUTION WIDTH 12.5 % (11.6-17.2); WHITE BLOOD COUNT 7.5 TH/MM3 (4.0-11.0)
[2016-06-30 10:57] LABS: CHLORIDE 108 MEQ/L (98-107); POTASSIUM 4.1 MEQ/L (3.5-5.1); SODIUM (NA) 144 MEQ/L (136-145)
[2016-06-30 11:01] LABS: ANION GAP 5 MEQ/L (5-15); BICARBONATE 31.5 MEQ/L (21.0-32.0); BLOOD UREA NITROGEN 13 MG/DL (7-18)
[2016-06-30 11:04] LABS: ALT (GPT) 25 U/L (12-78); AST (GOT) 23 U/L (15-37); GLOMERULAR FILTRATION RATE 104 ML/MIN (>89)
[2016-06-30 11:06] LABS: TOTAL BILIRUBIN ADULT 0.3 MG/DL (0.2-1.0)
[2016-06-30 11:07] LABS: ALKALINE PHOSPHATASE 117 U/L (45-117)
[2016-06-30] MEDS ORDERED: TRAZ100T4 PO (11:36)
[2016-06-30] MEDS ORDERED: PROZ20CA11 PO (11:36)
[2016-06-30] MEDS ORDERED: ALUMINUM/MAGNESIUM/SIMETH 30 ML CUP PO ONE (11:45)
[2016-06-30] MEDS ORDERED: LIDOCAINE VISCOUS 2% SOLN 15 ML UDC SWISH-SWAL ONE (11:45)
[2016-06-30] MEDS ORDERED: ATROPINE/SCOPOLAM/HYOSCYAM/PB ELIXIR 10 ML CUP PO ONE (11:45)
[2016-07-12] MEDS ORDERED: TRAZ100T4 PO (08:55)
[2016-07-12] MEDS ORDERED: PROZ20CA11 PO (08:55)
[2016-07-12] MEDS ORDERED: BENT20TA PO (08:56)
[2016-07-27] MEDS ORDERED: ALPR1TAB3 PO (10:53)
[2016-07-27] MEDS ORDERED: FLUO40CA PO (10:53)
[2016-07-27] MEDS ORDERED: TRAZ100T4 PO (10:53)
[2016-07-27] MEDS ORDERED: BENT20TA PO (10:53)
[2016-07-27] MEDS ORDERED: PERC5TAB12 PO (10:56)
[2016-08-22] MEDS ORDERED: TRAZ100T6 PO (14:10)
[2016-08-22] MEDS ORDERED: PERC5TAB12 PO (14:10)
[2016-08-22] MEDS ORDERED: ALPR1TAB3 PO (14:10)
[2016-08-22] MEDS ORDERED: FLUO40CA PO (14:10)
== END 2016-06-30 12:00 | disposition home or self-care (01) ==
LOC: PHED 10:06
DX: R10.9 Unspecified abdominal pain (principal); G89.29 Other chronic pain; K58.9 Irritable bowel syndrome, unspecified; D64.9 Anemia, unspecified
CPT/HCPCS: 80053; 85025; 96361; 96374; 96375; 99284; J1885; J2405; J7030

== ENCOUNTER 2016-09-27 13:36 | Emergency (ER) | payer SELFPAY ==
[~2016-09-27] VITALS: Ht 167.6 cm; Wt 135.0 kg
[~2016-09-27 13:36] MED LIST changes: +ALPR1TAB3 PO; -CLON.5 PO; +FLUO40CA PO; -LIBRAX PO; -PROZ20CA11 PO; +TRAZ100T6 PO
[2016-09-27 13:40] VITALS: BP 121/67; PULSE 87; RESP 16; TEMP 98.2; O2SAT 98
[2016-09-27 14:40] LABS: AUTOMATED NEUTROPHIL # 8.1 TH/MM3 (1.8-7.7); BASOPHIL # 0.1 TH/MM3 (0-0.2); BASOPHIL % 0.8 % (0.0-2.0); EOSINOPHIL % 0.3 % (0.0-4.0); HEMATOCRIT 40.5 % (39.0-51.0); HEMO FLAGS DIFF FINAL; LYMPH % 13.7 % (9.0-44.0); LYMPHOCYTE # 1.4 TH/MM3 (1.0-4.8); MEAN CELL VOLUME 88.3 FL (80.0-100.0); MEAN CORPUSCULAR HGB CONC 35.1 % (32.0-36.0); MONO % 3.6 % (0.0-8.0); NEUT % 81.6 % (16.0-70.0); PLATELET COUNT 217 TH/MM3 (150-450); RED BLOOD COUNT 4.59 MIL/MM3 (4.50-5.90); RED CELL DISTRIBUTION WIDTH 13.6 % (11.6-17.2); WHITE BLOOD COUNT 9.9 TH/MM3 (4.0-11.0)
[2016-09-27] MEDS ORDERED: SODIUM CHLOR 0.9% 1000 ML INJ 1,000 ML IV SCH (14:42)
[2016-09-27] MEDS ORDERED: HYDROmorphone HCL PF 1 MG/ML VIAL IVS ONE (14:45)
[2016-09-27] MEDS ORDERED: ONDANSETRON HCL 4 MG/2 ML VIAL IVP ONE (14:45)
[2016-09-27 14:57] LABS: ANION GAP 8 MEQ/L (5-15); AST (GOT) 28 U/L (15-37); BICARBONATE 25.9 MEQ/L (21.0-32.0); BLOOD UREA NITROGEN 11 MG/DL (7-18); CHLORIDE 106 MEQ/L (98-107); GLOMERULAR FILTRATION RATE 129 ML/MIN (>89); POTASSIUM 3.6 MEQ/L (3.5-5.1); SODIUM (NA) 140 MEQ/L (136-145)
[2016-09-27 15:00] LABS: ALKALINE PHOSPHATASE 97 U/L (45-117); ALT (GPT) 50 U/L (12-78); TOTAL BILIRUBIN ADULT 0.4 MG/DL (0.2-1.0)
[2016-09-27] MEDS ORDERED: IOHEXOL 350 MG/ML 10 ML VIAL (for RAD DIAG) IV ONE (15:41)
--- NOTE | 2016-09-27 15:59 | PD ---
HPI Chief Complaint: Abdominal Pain Time Seen by Provider: 14:35 Travel History International Travel<30 days: No Contact w/Intl Traveler<30days: No Traveled to known affect area: No History of Present Illness HPI C/O CRAMPY ABD PAIN, OVER LAST DAY OR SO, DIFFUSE, NONRADIATING, /10, NOT IMPROVED DESPITE PERCOCET/XANAX/BENTYL USE, NO N/V BUT APPARENTLY SOME LOOSE STOOLS.....DENIES FEVER AND APPARENTLY NO ALLEVIATING OR AGGRAVATING FACTORS PFSH Past Medical History Anemia: Yes Blood Disorders: No Anxiety: Yes Depression: Yes Cancer: No Cardiovascular Problems: No Diminished Hearing: No Endocrine: No Gastrointestinal Disorders: Yes (IBS) Genitourinary: No Immune Disorder: No Musculoskeletal: No Neurologic: No Psychiatric: Yes (PTSD) Reproductive: No Respiratory: No Past Surgical History Abdominal Surgery: No Appendectomy: Yes (05/06/16) Cardiac Surgery: No Thoracic Surgery: No Other Surgery: Yes (appendectomy 05/06/16) Social History Alcohol Use: Yes ("HERE AND THERE, SLIGHT OCCASION") Tobacco Use: No ("E-CIG ONLY" TRIED TOBACCO SMOKING A FEW TIMES EARLIER IN LIFE) Substance Use: No Allergies-Medications (Allergen,Severity, Reaction): Coded Allergies: Morphine (Verified Allergy, Mild, HIVES, 09/27/16) Reported Meds & Prescriptions Reported Meds & Active Scripts Active Percocet (Oxycodone-Acetaminophen) 5-325 mg Tab 1 Tab PO Q6H PRN Alprazolam 1 Mg Tab 1 Mg PO Q8H PRN Trazodone (Trazodone HCl) 100 Mg Tablet 100 Mg PO HS Fluoxetine (Fluoxetine HCl) 40 Mg Cap 40 Cap PO DAILY Review of Systems Except as stated in HPI: all other systems reviewed are Neg Gastrointestinal: Positive: Diarrhea, Abdominal Pain Physical Exam Narrative GENERAL: SKIN: Warm and dry. HEAD: Atraumatic. Normocephalic. EYES: Pupils equal and round. No scleral icterus. No injection or drainage. ENT: No nasal bleeding or discharge. Mucous membranes pink and moist. NECK: Trachea midline. No JVD. CARDIOVASCULAR: Regular rate and rhythm. RESPIRATORY: No accessory muscle use. Clear to auscultation. Breath sounds equal bilaterally. GASTROINTESTINAL: Abdomen soft, non-tender, nondistended. NO REBOUND, GUARDING, RIGIDITY FOUND MUSCULOSKELETAL: Extremities without clubbing, cyanosis, or edema. No obvious deformities. NEUROLOGICAL: Awake and alert. No obvious cranial nerve deficits. Motor grossly within normal limits. Five out of 5 muscle strength in the arms and legs. Normal speech. PSYCHIATRIC: Appropriate mood and affect; insight and judgment normal. Data Data Last Documented VS Vital Signs Date Time Temp Pulse Resp B/P Pulse Ox O2 Delivery O2 Flow Rate FiO2 09/27/16 13:40 98.2 87 16 121/67 98 Orders Complete Blood Count With Diff (09/27/16 13:45) Comprehensive Metabolic Panel (09/27/16 13:45) Urinalysis - C+S If Indicated (09/27/16 13:45) Lactic Acid Sepsis Protocol (09/27/16 13:45) Lipase (09/27/16 14:42) Ct Abd/Pel W Iv Contrast(Rout) (09/27/16 14:42) Ondansetron Inj (Zofran Inj) (09/27/16 14:45) Sodium Chlor 0.9% 1000 Ml Inj (Ns 1000 M (09/27/16 14:42) Hydromorphone Pf Inj (Dilaudid Pf Inj) (09/27/16 14:45) Iohexol 350 Inj (Omnipaque 350 Inj) (09/27/16 15:41) Labs Laboratory Tests Test 09/27/16 09/27/16 14:15 15:00 White Blood Count 9.9 TH/MM3 Red Blood Count 4.59 MIL/MM3 Hemoglobin 14.2 GM/DL Hematocrit 40.5 % Mean Corpuscular Volume 88.3 FL Mean Corpuscular Hemoglobin 31.0 PG Mean Corpuscular Hemoglobin 35.1 % Concent Red Cell Distribution Width 13.6 % Platelet Count 217 TH/MM3 Mean Platelet Volume 9.0 FL Neutrophils (%) (Auto) 81.6 % Lymphocytes (%) (Auto) 13.7 % Monocytes (%) (Auto) 3.6 % Eosinophils (%) (Auto) 0.3 % Basophils (%) (Auto) 0.8 % Neutrophils # (Auto) 8.1 TH/MM3 Lymphocytes # (Auto) 1.4 TH/MM3 Monocytes # (Auto) 0.4 TH/MM3 Eosinophils # (Auto) 0.0 TH/MM3 Basophils # (Auto) 0.1 TH/MM3 CBC Comment DIFF FINAL Differential Comment Sodium Level 140 MEQ/L Potassium Level 3.6 MEQ/L Chloride Level 106 MEQ/L Carbon Dioxide Level 25.9 MEQ/L Anion Gap 8 MEQ/L Blood Urea Nitrogen 11 MG/DL Creatinine 0.74 MG/DL Estimat Glomerular Filtration 129 ML/MIN Rate Random Glucose 102 MG/DL Lactic Acid Level 1.0 mmol/L Calcium Level 9.7 MG/DL Total Bilirubin 0.4 MG/DL Aspartate Amino Transf 28 U/L (AST/SGOT) Alanine Aminotransferase 50 U/L (ALT/SGPT) Alkaline Phosphatase 97 U/L Total Protein 7.9 GM/DL Albumin 4.2 GM/DL Lipase 167 U/L [facility] Medical Decision Making Medical Screen Exam Complete: Yes Emergency Medical Condition: Yes Medical Record Reviewed: Yes Differential Diagnosis SBO V FREE AIR V PANCREATITIS V HEPATITIS Narrative Course PATIENT WAS EVALUATED NORMAL LFT'S, NORMAL CBC, NORMAL LIPASE AND CT NEG FOR SBO /FREE AIR AT THIS POINT. Diagnosis Primary Impression: ACUTE ON CHRONIC ABDOMINAL PAIN Patient Instructions: Chronic Abdominal Pain (ED), General Instructions Additional Instructions: NO ADDITIONAL PAIN MEDICATIONS WILL BE GIVEN PATIENT HAS PAIN MANAGEMENT Disposition: 01 DISCHARGE HOME Condition: Stable Zachariah Martin MD Sep 27, 2016 15:59
--- NOTE | 2016-09-27 16:06 | RADRPT ---
EXAM DATE/TIME: 09/27/2016 15:26 [facility] COMPARISON: CT ABDOMEN & PELVIS W CONTRAST, May 18, 2016, 22:43. INDICATIONS : Left abdomen pain moving across to right with nausea,vomiting diarrhea IV CONTRAST: 90 cc Omnipaque 350 (iohexol) IV ORAL CONTRAST: No oral contrast ingested. RADIATION DOSE: 9.96 CTDIvol (mGy) MEDICAL HISTORY : Irritable bowel syndrome. SURGICAL HISTORY : Appendectomy. ENCOUNTER: Initial ACUITY: 1 day PAIN SCALE: 5/10 LOCATION: Abdomen TECHNIQUE: Volumetric scanning of the abdomen and pelvis was performed. Using automated exposure control and ad justment of the mA and/or kV according to patient size, radiation dose was kept as low as reasonably achievable to obtain optimal diagnostic quality images. DICOM format image data is available electro nically for review and comparison. FINDINGS: LOWER LUNGS: The visualized lower lungs are clear. LIVER: Homogeneous density without lesion. There is no dilation of the biliary tree. No calcified gallston es. SPLEEN: Normal size without lesion. PANCREAS: Within normal limits. KIDNEYS: Normal in size and shape. There is no mass, stone or hydronephrosis. ADRENAL GLANDS: Within normal limits. VASCULAR: There is no aortic aneurysm. BOWEL/MESENTERY: The stomach, small bowel, and colon demonstrate no acute abnormality. There is no free intraperitone al air or fluid. Status post appendectomy. ABDOMINAL WALL: Within normal limits. RETROPERITONEUM: There is no lymphadenopathy. BLADDER: No wall thickening or mass. REPRODUCTIVE: Within normal limits. INGUINAL: There is no lymphadenopathy or hernia. MUSCULOSKELETAL: Within normal limits for patient age. CONCLUSION: No acute disease. Jonathan Willingham MD on September 27, 2016 at 16:02 Board Certified Radiologist. This report was verified electronically.
== END 2016-09-27 18:17 | disposition home or self-care (01) ==
LOC: NEPE 13:36
DX: R10.9 Unspecified abdominal pain (principal); G89.29 Other chronic pain; R19.7 Diarrhea, unspecified; F41.8 Other specified anxiety disorders
CPT/HCPCS: 74177; 80053; 83605; 83690; 85025; 96361; 96374; 96375; 99284; J1170; J2405; J7030; Q9967

== ENCOUNTER 2016-12-16 21:40 | Emergency (ER) | payer SELFPAY ==
[~2016-12-16] VITALS: Ht 170.2 cm; Wt 70.0 kg
[~2016-12-16 21:40] MED LIST changes: -BENT20TA PO; -TRAZ100T4 PO
[2016-12-16 21:54] VITALS: BP 114/67; PULSE 100; RESP 18; TEMP 98.6; O2SAT 97
[2016-12-16 22:41] VITALS: O2SAT 99
[2016-12-16] MEDS ORDERED: diphenhydrAMINE HCL 50 MG/ML VIAL IVP ONE (22:45)
[2016-12-16] MEDS ORDERED: PROCHLORPERAZINE INJ 10 MG/2 ML VIAL IVP ONE (22:45)
--- NOTE | 2016-12-16 22:47 | PD ---
HPI . Headache Chief Complaint: Abdominal Pain Time Seen by Provider: 22:20 Travel History International Travel<30 days: No Contact w/Intl Traveler<30days: No Traveled to known affect area: No History of Present Illness HPI This patient actually presents with numerous complaints but his chief complaint currently is a headache. He states that it started a couple of days ago. He reports throbbing mainly in the left advent. He believes that he has a headache secondary to a dental abscess. He states that he has had the dental abscess for a while now and that his tooth has actually stopped hurting. But, now he has a headache. Pain is rated 7/10. No exacerbating factor. Unrelieved by ibuprofen. In addition, the patient states that he has diffuse abdominal discomfort associated with nausea and vomiting. That has also been a problem for a couple of days. He reports a history of IBS. He states that he is currently out of his usual medications. PFSH Past Medical History Anemia: Yes Blood Disorders: No Anxiety: Yes Depression: Yes Cancer: No Cardiovascular Problems: No Diminished Hearing: No Endocrine: No Gastrointestinal Disorders: Yes (IBS) Genitourinary: No Immune Disorder: No Musculoskeletal: No Neurologic: No Psychiatric: Yes (PTSD) Reproductive: No Respiratory: No Tetanus Vaccination: Unknown Past Surgical History Abdominal Surgery: No Appendectomy: Yes (05/06/16) Cardiac Surgery: No Thoracic Surgery: No Other Surgery: Yes (appendectomy 05/06/16) Social History Alcohol Use: Yes ("HERE AND THERE, SLIGHT OCCASION") Tobacco Use: No ("E-CIG ONLY" TRIED TOBACCO SMOKING A FEW TIMES EARLIER IN LIFE) Substance Use: No Allergies-Medications (Allergen,Severity, Reaction): Coded Allergies: morphine (Unverified Allergy, Mild, HIVES, 12/09/16) Reported Meds & Prescriptions Reported Meds & Active Scripts Active Percocet (Oxycodone-Acetaminophen) 5-325 mg Tab 1 Tab PO Q6H PRN Alprazolam 1 Mg Tab 1 Mg PO Q8H PRN Trazodone (Trazodone HCl) 100 Mg Tablet 100 Mg PO HS Fluoxetine (Fluoxetine HCl) 40 Mg Cap 40 Cap PO DAILY Review of Systems Except as stated in HPI: all other systems reviewed are Neg General / Constitutional: No: Fever, Chills Eyes: No: Blurred Vision HENT: Positive: Headaches, Dental Difficulties Gastrointestinal: Positive: Nausea, Vomiting, Abdominal Pain, No: Diarrhea Genitourinary: No: Urgency, Frequency, Dysuria Physical Exam Narrative GENERAL: Awake and alert. SKIN: warm/dry. No rash or lesions. HEAD: Normocephalic. Atraumatic. Positive left-sided scalp tenderness. EYES: Pupils equal and round. No scleral icterus. No injection or drainage. ENT: No nasal bleeding or discharge. Mucous membranes pink and moist. NECK: Trachea midline. Full range of motion without pain.. CARDIOVASCULAR: Regular rate and rhythm. RESPIRATORY: No accessory muscle use. Clear to auscultation. Breath sounds equal bilaterally. GASTROINTESTINAL: Abdomen soft. Diffusely tender. Bowel sounds present. Nondistended. MUSCULOSKELETAL: No obvious deformities. NEUROLOGICAL: Awake and alert. No obvious cranial nerve deficits. Motor grossly within normal limits. Normal speech. PSYCHIATRIC: Appropriate mood and affect; insight and judgment normal. Data Data Last Documented VS Vital Signs Date Time Temp Pulse Resp B/P (MAP) Pulse Ox O2 Delivery O2 Flow Rate FiO2 12/16/16 22:41 99 12/16/16 21:54 98.6 100 18 114/67 (83) Orders Orders Complete Blood Count With Diff (12/16/16 22:36) Comprehensive Metabolic Panel (12/16/16 22:36) Lipase (12/16/16 22:36) Lactic Acid (12/16/16 22:36) Iv Access Insert/Monitor (12/16/16 22:36) Ecg Monitoring (12/16/16 22:36) Oximetry (12/16/16 22:36) Prochlorperazine Inj (Compazine Inj) (12/16/16 22:45) Diphenhydramine Inj (Benadryl Inj) (12/16/16 22:45) Labs Laboratory Tests Test 12/16/16 22:45 White Blood Count 9.7 TH/MM3 Red Blood Count 4.59 MIL/MM3 Hemoglobin 14.1 GM/DL Hematocrit 41.3 % Mean Corpuscular Volume 89.9 FL Mean Corpuscular Hemoglobin 30.7 PG Mean Corpuscular Hemoglobin Concent 34.2 % Red Cell Distribution Width 13.8 % Platelet Count 263 TH/MM3 Mean Platelet Volume 8.6 FL Neutrophils (%) (Auto) 73.9 % Lymphocytes (%) (Auto) 18.7 % Monocytes (%) (Auto) 6.4 % Eosinophils (%) (Auto) 0.6 % Basophils (%) (Auto) 0.4 % Neutrophils # (Auto) 7.1 TH/MM3 Lymphocytes # (Auto) 1.8 TH/MM3 Monocytes # (Auto) 0.6 TH/MM3 Eosinophils # (Auto) 0.1 TH/MM3 Basophils # (Auto) 0.0 TH/MM3 CBC Comment DIFF FINAL Differential Comment Blood Urea Nitrogen 16 MG/DL Creatinine 0.85 MG/DL Random Glucose 63 MG/DL Total Protein 7.4 GM/DL Albumin 4.1 GM/DL Calcium Level 9.4 MG/DL Alkaline Phosphatase 81 U/L Aspartate Amino Transf (AST/SGOT) 55 U/L Alanine Aminotransferase (ALT/SGPT) 90 U/L Total Bilirubin 0.3 MG/DL Sodium Level 139 MEQ/L Potassium Level 4.4 MEQ/L Chloride Level 104 MEQ/L Carbon Dioxide Level 27.9 MEQ/L Anion Gap 7 MEQ/L Estimat Glomerular Filtration Rate 109 ML/MIN Lactic Acid Level 1.2 mmol/L Lipase 178 U/L MDM Medical Decision Making Medical Screen Exam Complete: Yes Emergency Medical Condition: Yes Medical Record Reviewed: Yes (previous records indicate that he should not be prescribed narcotics.) Differential Diagnosis Differential diagnosis of headache includes but is not limited to migraine, muscle contraction headache, brain tumor, brain bleed Differential diagnosis of abdominal pain includes but is not limited to gastritis, pancreatitis, hepatitis, gastroenteritis, gallbladder disease, constipation, urinary retention, UTI, peptic ulcer disease, diverticulitis or appendicitis Narrative Course This patient presents with chief complaint of headache and the secondary complaint of abdominal pain associated with nausea and vomiting. He will be treated with IV fluids and IV Compazine and Benadryl. Abdominal labs are pending. CBC & BMP Diagram 12/16/16 22:45 Total Protein 7.4, Albumin 4.1, Calcium Level 9.4, Alkaline Phosphatase 81, Aspartate Amino Transf (AST/SGOT) 55 H, Alanine Aminotransferase (ALT/SGPT) 90 H , Total Bilirubin 0.3 LA 1.2 The history, exam, diagnostic testing, and current condition do not suggest any significant pathology to warrant further testing, continued ED treatment, admission, or surgical evaluation at this point. No EMC was found. The patient 's condition is stable and appropriate for discharge. Diagnosis Primary Impression: Headache Qualified Codes: R51 - Headache Additional Impressions: Chronic abdominal pain NO NARCOTICS Patient Instructions: Abdominal Pain (ED), Acute Headache (DC), Acute Nausea and Vomiting (DC), General Instructions Med/Other Pt SpecificInfo: Prescription(s) given Scripts Ondansetron (Zofran) 4 Mg Tab 4 MG PO Q6HR Y for NAUSEA OR VOMITING, #10 TAB 0 Refills Prov: Gloria Simmons MD 12/16/16 Disposition: 01 DISCHARGE HOME Condition: Stable Gloria Simmons MD Dec 16, 2016 22:47
[2016-12-16 23:03] LABS: AUTOMATED NEUTROPHIL # 7.1 TH/MM3 (1.8-7.7); BASOPHIL % 0.4 % (0.0-2.0); EOSINOPHIL # 0.1 TH/MM3 (0-0.4); EOSINOPHIL % 0.6 % (0.0-4.0); HEMATOCRIT 41.3 % (39.0-51.0); HEMO FLAGS DIFF FINAL; LYMPH % 18.7 % (9.0-44.0); LYMPHOCYTE # 1.8 TH/MM3 (1.0-4.8); MEAN CELL VOLUME 89.9 FL (80.0-100.0); MEAN CORPUSCULAR HEMOGLOBIN 30.7 PG (27.0-34.0); MEAN CORPUSCULAR HGB CONC 34.2 % (32.0-36.0); MONO % 6.4 % (0.0-8.0); NEUT % 73.9 % (16.0-70.0); PLATELET COUNT 263 TH/MM3 (150-450); RED BLOOD COUNT 4.59 MIL/MM3 (4.50-5.90); RED CELL DISTRIBUTION WIDTH 13.8 % (11.6-17.2); WHITE BLOOD COUNT 9.7 TH/MM3 (4.0-11.0)
[2016-12-16 23:13] LABS: ANION GAP 7 MEQ/L (5-15); AST (GOT) 55 U/L (15-37); BICARBONATE 27.9 MEQ/L (21.0-32.0); BLOOD UREA NITROGEN 16 MG/DL (7-18); CHLORIDE 104 MEQ/L (98-107); GLOMERULAR FILTRATION RATE 109 ML/MIN (>89); POTASSIUM 4.4 MEQ/L (3.5-5.1); SODIUM (NA) 139 MEQ/L (136-145)
[2016-12-16 23:14] LABS: ALT (GPT) 90 U/L (12-78)
[2016-12-16 23:16] LABS: ALKALINE PHOSPHATASE 81 U/L (45-117); TOTAL BILIRUBIN ADULT 0.3 MG/DL (0.2-1.0)
[2016-12-16] MEDS ORDERED: ZOFR4TAB PO (23:28)
== END 2016-12-16 23:53 | disposition home or self-care (01) ==
LOC: NEPD 21:40
DX: R51 Headache (principal); D64.9 Anemia, unspecified; F32.9 Major depressive disorder, single episode, unspecified; K58.9 Irritable bowel syndrome, unspecified; F43.10 Post-traumatic stress disorder, unspecified; K04.7 Periapical abscess without sinus; R11.2 Nausea with vomiting, unspecified; R10.9 Unspecified abdominal pain; Z79.899 Other long term (current) drug therapy
CPT/HCPCS: 80053; 83605; 83690; 85025; 96374; 96375; 99284; J0780; J1200

== ENCOUNTER 2017-02-13 15:22 | Emergency (ER) | payer SELFPAY ==
[~2017-02-13 15:22] MED LIST changes: +TRAZ100T10 PO; -TRAZ100T6 PO; +ZOFR4TAB PO
[2017-02-13] MEDS ORDERED: IOHEXOL 350 MG/ML 10 ML VIAL (for RAD DIAG) IVCONTRAST ONE (15:23)
[2017-02-13 15:26] VITALS: BP 142/81; PULSE 90; RESP 18; TEMP 99; O2SAT 97
[2017-02-13 15:57] VITALS: O2SAT 99
[2017-02-13] MEDS ORDERED: SODIUM CHLORIDE 0.9% FLUSH 10 ML FLUSH IV FLUSH PRN (16:00)
[2017-02-13] MEDS: SODIUM CHLOR 0.9% 1000 ML INJ 1,000 ML IV SCH ×2 (16:07→16:32)
[2017-02-13] MEDS ORDERED: MORPHINE SULFATE 2 MG/ML INJ IV PUSH ONE (16:15)
[2017-02-13 16:17] LABS: AUTOMATED NEUTROPHIL # 7.1 TH/MM3 (1.8-7.7); BASOPHIL % 0.5 % (0.0-2.0); EOSINOPHIL % 0.3 % (0.0-4.0); HEMATOCRIT 44.9 % (39.0-51.0); HEMO FLAGS DIFF FINAL; LYMPH % 17.1 % (9.0-44.0); LYMPHOCYTE # 1.6 TH/MM3 (1.0-4.8); MEAN CELL VOLUME 90.1 FL (80.0-100.0); MEAN CORPUSCULAR HGB CONC 35.5 % (32.0-36.0); MONO % 6.7 % (0.0-8.0); NEUT % 75.4 % (16.0-70.0); PLATELET COUNT 235 TH/MM3 (150-450); RED BLOOD COUNT 4.98 MIL/MM3 (4.50-5.90); RED CELL DISTRIBUTION WIDTH 13.5 % (11.6-17.2); WHITE BLOOD COUNT 9.4 TH/MM3 (4.0-11.0)
[2017-02-13 16:27] LABS: APTT (PATIENT) 26.5 SEC (24.3-30.1); INTERNATIONAL NORMALIZED RATIO 1.1 RATIO; PROTHROMBIN TIME - PATIENT 10.7 SEC (9.8-11.6)
--- NOTE | 2017-02-13 16:29 | PD ---
HPI Chief Complaint: GI Complaint Time Seen by Provider: 15:49 Travel History International Travel<30 days: No Contact w/Intl Traveler<30days: No Traveled to known affect area: No History of Present Illness HPI Patient is a 26 year old male who was sent to the ER by his primary care doctor , Dr. Easley for evaluation of his chronic abdominal pain. Patient reports that since May, he has had diffuse abdominal pain. Reports that he was seen in the hospital and had bloody stools, he ended up having a diagnostic laparoscopy which showed an acute appendicitis by Dr. Valle. Reports that after his discharge, he did follow-up with Dr. Valle the office, as patient did continue to have abdominal pain. Reports that Dr. Valle discharge him from his service as he did not think that this pain was due to an acute abdominal pathology. Patient was noted to have elevated lft's and he was told to follow up with a hotel service manager. Patient reports that since his surgery in May, he continues to have diffuse abdominal pain with nausea and decreased oral intake. Patient was on chronic opiates, reports that his primary care doctor stopped prescribing these medications today and request that he be seen in the emergency room for a CT of abdomen and pelvis for further evaluation of abdominal pain. Patient at this time with no fever or chills, reports that pain is at baseline PFSH Past Medical History Anemia: Yes Blood Disorders: No Anxiety: Yes Depression: Yes Cancer: No Cardiovascular Problems: No Diminished Hearing: No Endocrine: No Gastrointestinal Disorders: Yes (IBS) Genitourinary: No Immune Disorder: No Musculoskeletal: No Neurologic: No Psychiatric: Yes (PTSD) Reproductive: No Respiratory: No Past Surgical History Abdominal Surgery: No Appendectomy: Yes (05/06/16) Cardiac Surgery: No Thoracic Surgery: No Other Surgery: Yes (appendectomy 05/06/16) Social History Alcohol Use: No Tobacco Use: No Substance Use: No Allergies-Medications (Allergen,Severity, Reaction): Coded Allergies: diphenhydramine (Verified Allergy, Severe, 02/13/17) anxiety attack morphine (Unverified Adverse Reaction, Mild, HIVES, 02/13/17) denies Reported Meds & Prescriptions Reported Meds & Active Scripts Active Alprazolam 1 Mg Tab 1 Mg PO Q8H PRN Trazodone (Trazodone HCl) 100 Mg Tablet 100 Mg PO HS Fluoxetine (Fluoxetine HCl) 40 Mg Cap 40 Cap PO DAILY Zofran (Ondansetron HCl) 4 Mg Tab 4 Mg PO Q6HR PRN Review of Systems General / Constitutional: No: Fever, Chills Eyes: No: Visual changes HENT: No: Headaches Cardiovascular: No: Chest Pain or Discomfort Respiratory: No: Shortness of Breath Gastrointestinal: Positive: Nausea, Abdominal Pain, No: Constipation Genitourinary: No: Dysuria Musculoskeletal: No: Pain Skin: No Rash Neurologic: No: Weakness Psychiatric: No: Depression Endocrine: No: Polydipsia Hematologic/Lymphatic: No: Easy Bruising Physical Exam Narrative GENERAL: Mild distress SKIN: Focused skin assessment warm/dry. HEAD: Atraumatic. Normocephalic. EYES: Pupils equal and round. No scleral icterus. No injection or drainage. ENT: No nasal bleeding or discharge. Mucous membranes pink and moist. NECK: Trachea midline. No JVD. CARDIOVASCULAR: Regular rate and rhythm. No murmur appreciated. RESPIRATORY: No accessory muscle use. Clear to auscultation. Breath sounds equal bilaterally. GASTROINTESTINAL: Abdomen soft, diffusely tender, nondistended. Hepatic and splenic margins not palpable. MUSCULOSKELETAL: No obvious deformities. No clubbing. No cyanosis. No edema. NEUROLOGICAL: Awake and alert. No obvious cranial nerve deficits. Motor grossly within normal limits. Normal speech. PSYCHIATRIC: Appropriate mood and affect; insight and judgment normal. Data Data Last Documented VS Vital Signs Date Time Temp Pulse Resp B/P (MAP) Pulse Ox O2 Delivery O2 Flow Rate FiO2 02/13/17 15:57 99 Room Air 02/13/17 15:53 18 02/13/17 15:26 99.0 90 Orders Orders Complete Blood Count With Diff (02/13/17 15:49) Comprehensive Metabolic Panel (02/13/17 15:49) Lipase (02/13/17 15:49) Prothrombin Time / Inr (Pt) (02/13/17 15:49) Act Partial Throm Time (Ptt) (02/13/17 15:49) Urinalysis - C+S If Indicated (02/13/17 15:49) Iv Access Insert/Monitor (02/13/17 15:49) Ecg Monitoring (02/13/17 15:49) Oximetry (02/13/17 15:49) Sodium Chlor 0.9% 1000 Ml Inj (Ns 1000 M (02/13/17 15:49) Sodium Chloride 0.9% Flush (Ns Flush) (02/13/17 16:00) Ct Abd/Pel W Iv Contrast(Rout) (02/13/17 16:13) Morphine Inj (Morphine Inj) (02/13/17 16:15) Labs Laboratory Tests Test 02/13/17 16:00 White Blood Count 9.4 TH/MM3 Red Blood Count 4.98 MIL/MM3 Hemoglobin 15.9 GM/DL Hematocrit 44.9 % Mean Corpuscular Volume 90.1 FL Mean Corpuscular Hemoglobin 32.0 PG Mean Corpuscular Hemoglobin Concent 35.5 % Red Cell Distribution Width 13.5 % Platelet Count 235 TH/MM3 Mean Platelet Volume 8.7 FL Neutrophils (%) (Auto) 75.4 % Lymphocytes (%) (Auto) 17.1 % Monocytes (%) (Auto) 6.7 % Eosinophils (%) (Auto) 0.3 % Basophils (%) (Auto) 0.5 % Neutrophils # (Auto) 7.1 TH/MM3 Lymphocytes # (Auto) 1.6 TH/MM3 Monocytes # (Auto) 0.6 TH/MM3 Eosinophils # (Auto) 0.0 TH/MM3 Basophils # (Auto) 0.0 TH/MM3 CBC Comment DIFF FINAL Differential Comment MDM Medical Decision Making Medical Screen Exam Complete: Yes Emergency Medical Condition: Yes Medical Record Reviewed: Yes Interpretation(s) Vital Signs Date Time Temp Pulse Resp B/P (MAP) Pulse Ox O2 Delivery O2 Flow Rate FiO2 02/13/17 15:57 99 Room Air 02/13/17 15:53 18 02/13/17 15:26 99.0 90 18 142/81 (101) 97 Room Air Differential Diagnosis appendiceal abscess, chronic pain, gastroenteritis, gastritis, electrolyte abnormality Narrative Course During the course of the patients emergency department visit, the patients history, examination, and differential diagnosis were reviewed with the patient. The patient was placed on a cv rn with oximetry and frequent blood pressure monitoring. The patient had an IV access obtained and blood work sent for analysis. The patient was initially provided IV fluids and IV morphine for pain The patients laboratory studies were reviewed and remarkable for [-]. Radiology studies were reviewed and remarkable for [-] Ayala Cee DO Feb 13, 2017 16:29
[2017-02-13] MEDS ORDERED: DIATRIZOATE MEGLUM/DIATRIZOATE SOD 9 ML CUP ONE (16:43)
[2017-02-13 16:44] LABS: ALT (GPT) 41 U/L (12-78); ANION GAP 7 MEQ/L (5-15); AST (GOT) 22 U/L (15-37); BICARBONATE 27.3 MEQ/L (21.0-32.0); BLOOD UREA NITROGEN 10 MG/DL (7-18); CHLORIDE 106 MEQ/L (98-107); GLOMERULAR FILTRATION RATE 92 ML/MIN (>89); POTASSIUM 3.6 MEQ/L (3.5-5.1); SODIUM (NA) 140 MEQ/L (136-145)
[2017-02-13 16:46] LABS: ALKALINE PHOSPHATASE 103 U/L (45-117); TOTAL BILIRUBIN ADULT 0.3 MG/DL (0.2-1.0)
--- NOTE | 2017-02-13 18:59 | RADRPT ---
EXAM DATE/TIME: 02/13/2017 18:20 [facility] COMPARISON: CT ABDOMEN & PELVIS W CONTRAST, September 27, 2016, 15:26. INDICATIONS : Patient complains of abdominal pain and nausea. IV CONTRAST: 100 cc Omnipaque 350 (iohexol) IV ORAL CONTRAST: Prescribed oral contrast ingested. RADIATION DOSE: 6.64 CTDIvol (mGy) MEDICAL HISTORY : None SURGICAL HISTORY : Appendectomy. ENCOUNTER: Initial ACUITY: 1 yr PAIN SCALE: 8/10 LOCATION: abdomen TECHNIQUE: Volumetric scanning of the abdomen and pelvis was performed. Using automated exposure control and ad justment of the mA and/or kV according to patient size, radiation dose was kept as low as reasonably achievable to obtain optimal diagnostic quality images. DICOM format image data is available electro nically for review and comparison. FINDINGS: LOWER LUNGS: The visualized lower lungs are clear. LIVER: Homogeneous density without lesion. There is no dilation of the biliary tree. No calcified gallston es. SPLEEN: Normal size without lesion. PANCREAS: Within normal limits. KIDNEYS: Normal in size and shape. There is no mass, stone or hydronephrosis. ADRENAL GLANDS: Within normal limits. VASCULAR: There is no aortic aneurysm. BOWEL/MESENTERY: The stomach, small bowel, and colon demonstrate no acute abnormality. There is no free intraperitone al air or fluid. ABDOMINAL WALL: Within normal limits. RETROPERITONEUM: There is no lymphadenopathy. BLADDER: No wall thickening or mass. REPRODUCTIVE: Within normal limits. INGUINAL: There is no lymphadenopathy or hernia. MUSCULOSKELETAL: Within normal limits for patient age. CONCLUSION: 1. No acute findings within the abdomen and pelvis. Abdi DeP az MD on February 13, 2017 at 18:54 Board Certified Radiologist. This report was verified electronically.
--- NOTE | 2017-02-13 19:31 | PD ---
Physical Exam Narrative GENERAL: SKIN: Warm and dry. HEAD: Atraumatic. Normocephalic. EYES: Pupils equal and round. No scleral icterus. No injection or drainage. ENT: No nasal bleeding or discharge. Mucous membranes pink and moist. NECK: Trachea midline. No JVD. CARDIOVASCULAR: Regular rate and rhythm. RESPIRATORY: No accessory muscle use. Clear to auscultation. Breath sounds equal bilaterally. GASTROINTESTINAL: Abdomen soft, NONTENDER WHEN DISTRACTED, nondistended. NO REBOUND/GUARDING/RIGIDITY MUSCULOSKELETAL: Extremities without clubbing, cyanosis, or edema. No obvious deformities. NEUROLOGICAL: Awake and alert. No obvious cranial nerve deficits. Motor grossly within normal limits. Five out of 5 muscle strength in the arms and legs. Normal speech. PSYCHIATRIC: Appropriate mood and affect; insight and judgment normal. Data Data Last Documented VS Vital Signs Date Time Temp Pulse Resp B/P (MAP) Pulse Ox O2 Delivery O2 Flow Rate FiO2 02/13/17 15:57 99 Room Air 02/13/17 15:53 18 02/13/17 15:26 99.0 90 Orders Orders Complete Blood Count With Diff (02/13/17 15:49) Comprehensive Metabolic Panel (02/13/17 15:49) Lipase (02/13/17 15:49) Prothrombin Time / Inr (Pt) (02/13/17 15:49) Act Partial Throm Time (Ptt) (02/13/17 15:49) Urinalysis - C+S If Indicated (02/13/17 15:49) Iv Access Insert/Monitor (02/13/17 15:49) Ecg Monitoring (02/13/17 15:49) Oximetry (02/13/17 15:49) Sodium Chlor 0.9% 1000 Ml Inj (Ns 1000 M (02/13/17 15:49) Sodium Chloride 0.9% Flush (Ns Flush) (02/13/17 16:00) Ct Abd/Pel W Iv Contrast(Rout) (02/13/17 16:13) Morphine Inj (Morphine Inj) (02/13/17 16:15) Oral Contrast - Adult (02/13/17 16:30) Diatrizoate Liq ( Gastroview Liq) (02/13/17 16:43) Iohexol 350 Inj (Omnipaque 350 Inj) (02/13/17 15:23) Ed Discharge Order (02/13/17 19:31) Fluoxetine (Prozac) (02/13/17 20:45) Alprazolam (Xanax) (02/13/17 20:45) Trazodone (Desyrel) (02/13/17 20:45) Mandatory Outpatient Referral (02/13/17 20:46) Labs Laboratory Tests Test 02/13/17 16:00 02/13/17 19:10 White Blood Count 9.4 TH/MM3 Red Blood Count 4.98 MIL/MM3 Hemoglobin 15.9 GM/DL Hematocrit 44.9 % Mean Corpuscular Volume 90.1 FL Mean Corpuscular Hemoglobin 32.0 PG Mean Corpuscular Hemoglobin Concent 35.5 % Red Cell Distribution Width 13.5 % Platelet Count 235 TH/MM3 Mean Platelet Volume 8.7 FL Neutrophils (%) (Auto) 75.4 % Lymphocytes (%) (Auto) 17.1 % Monocytes (%) (Auto) 6.7 % Eosinophils (%) (Auto) 0.3 % Basophils (%) (Auto) 0.5 % Neutrophils # (Auto) 7.1 TH/MM3 Lymphocytes # (Auto) 1.6 TH/MM3 Monocytes # (Auto) 0.6 TH/MM3 Eosinophils # (Auto) 0.0 TH/MM3 Basophils # (Auto) 0.0 TH/MM3 CBC Comment DIFF FINAL Differential Comment Prothrombin Time 10.7 SEC Prothromb Time International Ratio 1.1 RATIO Activated Partial Thromboplast Time 26.5 SEC Blood Urea Nitrogen 10 MG/DL Creatinine 0.98 MG/DL Random Glucose 87 MG/DL Total Protein 8.9 GM/DL Albumin 4.8 GM/DL Calcium Level 9.4 MG/DL Alkaline Phosphatase 103 U/L Aspartate Amino Transf (AST/SGOT) 22 U/L Alanine Aminotransferase (ALT/SGPT) 41 U/L Total Bilirubin 0.3 MG/DL Sodium Level 140 MEQ/L Potassium Level 3.6 MEQ/L Chloride Level 106 MEQ/L Carbon Dioxide Level 27.3 MEQ/L Anion Gap 7 MEQ/L Estimat Glomerular Filtration Rate 92 ML/MIN Lipase 292 U/L Urine Color LIGHT-YELLOW Urine Turbidity CLEAR Urine pH 6.5 Urine Specific [place] 1.007 Urine Protein NEG mg/dL Urine Glucose (UA) NEG mg/dL Urine Ketones TRACE mg/dL Urine Occult Blood NEG Urine Nitrite NEG Urine Bilirubin NEG Urine Urobilinogen LESS THAN 2.0 MG/DL Urine Leukocyte Esterase NEG Urine RBC LESS THAN 1 /hpf Urine WBC 1 /hpf Microscopic Urinalysis Comment CULT NOT INDICATED MDM Medical Record Reviewed: Yes Supervised Visit with NESS: No Narrative Course CT SCAN OF ABD/PELVIS WHICH IS THE THIRD ONE THIS YEAR IS NEGATIVE, CBC/CMP/ LIPASE ALL WITHIN NORMAL LIMITS AND NOT SHOWING ANY CAUSE OF HIS CHRONIC ABDOMINAL PAIN. PATIENT WILL BE D/C AND NO PRESCRIPTION FOR NARCOTICS OR BENZODIAZEPENES WILL BE WRITTEN PATIENT HAS HIS OWN PCP, AND WAS SENT OVER [facility].....MOTHER WAS NOT PLEASED THAT I DID NOT WRITE FOR HIS NARCOTIC PERCOCET 5MG, Diagnosis Primary Impression: Chronic abdominal pain Patient Instructions: Chronic Abdominal Pain (ED), General Instructions Additional Instruction: FOLLOW UP WITH YOUR FAMILY PRACTICE DOCTOR FOR ANY FURTHER CARE. TODAY ON YOUR CAT SCAN OF ABDOMEN/PELVIS YOU WERE NOT FOUND TO HAVE ILEUS/SMALL BOWEL OBSTRUCTION/PANCREATITIS/KIDNEY STONE/ABDOMINAL AORTIC ANEURYSM. YOU ALSO HAD NO ANEMIA, NORMAL LIVER FUNCTIONS AND NORMAL ELECTROLYTES. YOUR FAMILY PRACTICE NEEDS TO BE THE POINT OF CARE FOR FURTHER CARE, AND REFERRALS IF NEEDED. NO ADDITIONAL NARCOTIC MEDICINE WILL BE PRESCRIBED FOR YOU TODAY...A MANDATORY REFERRAL GIVEN TO FOLLOW UP WITH LIDAR ANALYST Disposition: 01 DISCHARGE HOME Condition: Stable Zachariah Martin MD Feb 13, 2017 19:31
[2017-02-13 20:05] LABS: BLOOD, URINE NEG (NEG); GLUCOSE,URINE NEG (NEG); KETONE, URINE TRACE mg/dL (NEG); NITRITE,URINE NEG (NEG); PH, URINE 6.5 (5.0-8.5); URINE COLOR LIGHT-YELLOW (YELLW/STRAW)
[2017-02-13 20:06] LABS: COMMENT (UR) CULT NOT INDICATED; CULTURE IF INDICATED CULT NOT INDICATED
[2017-02-13] MEDS ORDERED: ALPRAZolam 1 MG TAB PO ONE (20:45)
[2017-02-13] MEDS ORDERED: traZODone HCL 100 MG TAB PO ONE (20:45)
[2017-02-13] MEDS ORDERED: FLUoxetine HCL 20 MG CAP PO ONE (20:45)
== END 2017-02-13 21:04 | disposition home or self-care (01) ==
LOC: NEPD 15:22
DX: R10.9 Unspecified abdominal pain (principal); G89.29 Other chronic pain; F43.10 Post-traumatic stress disorder, unspecified; F32.9 Major depressive disorder, single episode, unspecified
CPT/HCPCS: 74177; 80053; 81001; 83690; 85025; 85610; 85730; 96361; 96374; 99285; J2270; J7030; Q9963; Q9967

== ENCOUNTER 2017-03-17 22:53 | Inpatient (IN) | payer SELFPAY ==
[~2017-03-17] VITALS: Ht 177.8 cm; Wt 70.0 kg
[~2017-03-17 22:53] MED LIST changes: +FLUO1TAB3 PO; -PERC5TAB12 PO
[2017-03-17 23:13] VITALS: BP 142/76; PULSE 134; RESP 16; TEMP 99.1; O2SAT 98
[2017-03-18 04:09] VITALS: BP 146/65; PULSE 109; RESP 18; TEMP 100.4; O2SAT 99
[2017-03-18] MEDS ORDERED: PERC5TAB12 PO (04:34)
--- NOTE | 2017-03-18 04:37 | PD ---
HPI Chief Complaint: Facial Pain or Swelling Time Seen by Provider: 04:33 Travel History International Travel<30 days: No Contact w/Intl Traveler<30days: No Traveled to known affect area: No History of Present Illness HPI 26-year-old male presents to the emergency department by private transportation the care of his mother for evaluation of chin and facial swelling since Monday morning. Patient reportedly was noticing that he had a goatee on his chin and as he was messing with it clumps of hair supposedly fell out and then the chin reportedly started draining. Patient was noted to have increasing swelling of the chin and reported fever so was encouraged to come to the hospital for evaluation. Patient has chronic pain syndrome and has recently been taken off of Percocet. Patient has history of inflammatory bowel disease but is currently on no prednisone or immunosuppressive medications. No recent exacerbation of his inflammatory bowel disease. Patient takes Xanax. Patient' s chin pain as 8/10 in intensity but also complains of headache and myalgias and arthralgias. PFSH Past Medical History Narrative Medical Anemia anxiety depression inflammatory bowel disease appendectomy no tobacco use nursing notes reviewed Anemia: Yes Blood Disorders: No Anxiety: Yes Depression: Yes Cancer: No Cardiovascular Problems: No Diminished Hearing: No Endocrine: No Gastrointestinal Disorders: Yes (IBS) Genitourinary: No Immune Disorder: No Musculoskeletal: No Neurologic: No Psychiatric: Yes (PTSD) Reproductive: No Respiratory: No Past Surgical History Abdominal Surgery: No Appendectomy: Yes (05/06/16) Cardiac Surgery: No Thoracic Surgery: No Other Surgery: Yes (appendectomy 05/06/16) Social History Alcohol Use: No Tobacco Use: No Substance Use: No Allergies-Medications (Allergen,Severity, Reaction): Coded Allergies: diphenhydramine (Verified Allergy, Severe, 03/18/17) anxiety attack morphine (Unverified Adverse Reaction, Mild, HIVES, 03/18/17) denies Reported Meds & Prescriptions Reported Meds & Active Scripts Active Alprazolam 1 Mg Tab 1 Mg PO Q8H PRN Fluoxetine (Fluoxetine HCl) 20 Mg Tab 20 Mg PO HS Please take 40mg in AM and 20mg in PM Fluoxetine (Fluoxetine HCl) 40 Mg Cap 40 Cap PO DAILY Please take 40mg in AM and 20mg in PM Zofran (Ondansetron HCl) 4 Mg Tab 4 Mg PO Q6HR PRN Reported Percocet (Oxycodone-Acetaminophen) 5-325 mg Tab 1 Tab PO Q6H PRN Review of Systems Except as stated in HPI: all other systems reviewed are Neg General / Constitutional: Positive: Fever HENT: Positive: Congestion, Other Cardiovascular: No: Chest Pain or Discomfort Respiratory: No: Shortness of Breath (chin pain and swelling) Gastrointestinal: No: Vomiting, Abdominal Pain Genitourinary: No: Decreased Urinary Output, Flank Pain Musculoskeletal: Positive: Myalgias, Arthralgias Skin: Positive Rash, Positive Lumps Neurologic: Positive: Weakness (chin), No: Dizziness, Syncope, Focal Abnormalities, Coordination Problem Psychiatric: Positive: Anxiety Hematologic/Lymphatic: No: Easy Bruising Physical Exam Narrative GENERAL: Well-developed well-nourished male in no acute distress no respiratory distress SKIN: Warm and dry. HEAD: Normocephalic. EYES: No scleral icterus. No injection or drainage. ENT: Airway is patent. No trismus. Chin with edema induration increased warmth erythema and tenderness to palpation without fluctuance. NECK: Supple, trachea midline. No JVD or lymphadenopathy. CARDIOVASCULAR: Regular rate and rhythm without murmurs, gallops, or rubs. RESPIRATORY: Breath sounds equal bilaterally. No accessory muscle use. GASTROINTESTINAL: Abdomen soft, non-tender, nondistended. MUSCULOSKELETAL: No cyanosis, or edema. BACK: Nontender without obvious deformity. No CVA tenderness. Data Data Last Documented VS Vital Signs Date Time Temp Pulse Resp B/P (MAP) Pulse Ox O2 Delivery O2 Flow Rate FiO2 03/18/17 07:16 98.9 97 18 117/74 (88) 97 Room Air Orders Orders Basic Metabolic Panel (Bmp) (03/18/17 04:33) Complete Blood Count With Diff (03/18/17 04:33) Blood Culture (03/18/17 04:33) Wound Culture And Gram Stain (03/18/17 04:33) Iv Access Insert/Monitor (03/18/17 04:33) Ketorolac Inj (Toradol Inj) (03/18/17 04:45) Clindamycin Inj (Cleocin Inj) (03/18/17 04:45) Piperacil-Tazo 4.5 Gm Premix (Zosyn 4.5 (03/18/17 04:45) Sodium Chlor 0.9% 1000 Ml Inj (Ns 1000 M (03/18/17 04:45) Sodium Chlor 0.9% 1000 Ml Inj (Ns 1000 M (03/18/17 04:45) Drug Screen, Random Urine (03/18/17 04:33) Lactic Acid (03/18/17 04:33) Ct Soft Tiss Neck W Iv Cont (03/18/17 ) Iohexol 350 Inj (Omnipaque 350 Inj) (03/18/17 05:50) Tetanus/Diphtheria Tox Adult (Tetanus/Di (03/18/17 06:15) Vancomycin Inj (Vancomycin Inj) (03/18/17 06:45) Labs Laboratory Tests Test 03/18/17 04:48 White Blood Count 18.1 TH/MM3 Red Blood Count 4.37 MIL/MM3 Hemoglobin 13.9 GM/DL Hematocrit 38.9 % Mean Corpuscular Volume 88.9 FL Mean Corpuscular Hemoglobin 31.8 PG Mean Corpuscular Hemoglobin Concent 35.8 % Red Cell Distribution Width 12.9 % Platelet Count 241 TH/MM3 Mean Platelet Volume 8.6 FL Neutrophils (%) (Auto) 89.2 % Lymphocytes (%) (Auto) 5.7 % Monocytes (%) (Auto) 4.6 % Eosinophils (%) (Auto) 0.2 % Basophils (%) (Auto) 0.3 % Neutrophils # (Auto) 16.1 TH/MM3 Lymphocytes # (Auto) 1.0 TH/MM3 Monocytes # (Auto) 0.8 TH/MM3 Eosinophils # (Auto) 0.0 TH/MM3 Basophils # (Auto) 0.0 TH/MM3 CBC Comment DIFF FINAL Differential Comment Blood Urea Nitrogen 11 MG/DL Creatinine 0.78 MG/DL Random Glucose 88 MG/DL Calcium Level 8.6 MG/DL Sodium Level 136 MEQ/L Potassium Level 3.3 MEQ/L Chloride Level 101 MEQ/L Carbon Dioxide Level 25.6 MEQ/L Anion Gap 9 MEQ/L Estimat Glomerular Filtration Rate 120 ML/MIN Lactic Acid Level 1.0 mmol/L Urine Opiates Screen NEG Urine Barbiturates Screen NEG Urine Amphetamines Screen POS Urine Benzodiazepines Screen POS Urine Cocaine Screen NEG Urine Cannabinoids Screen POS MDM Medical Decision Making Medical Screen Exam Complete: Yes Emergency Medical Condition: Yes Medical Record Reviewed: Yes Interpretation(s) Urine drug screen positive for amphetamines benzodiazepines and cannabis Vital Signs Date Time Temp Pulse Resp B/P (MAP) Pulse Ox O2 Delivery O2 Flow Rate FiO2 03/18/17 04:09 100.4 109 18 146/65 (92) 99 Room Air 03/17/17 23:13 99.1 134 16 142/76 (98) 98 Lactic acid is 1.0 not elevated CBC & BMP Diagram 03/18/17 04:48 Calcium Level 8.6 Differential Diagnosis Cellulitis abscess; also to consider necrotizing fasciitis Narrative Course Patient placed on monitor IV access obtained blood cultures and lactic acid and specimens collected; patient administered presumptive IV antibiotic coverage with clindamycin and vancomycin and Zosyn CT soft tissue neck with IV contrast ordered Sepsis Criteria SIRS Criteria (2 or more): Heart rate over 90, WBC > 95199, < 4000 or > 10% bands Sepsis Criteria (SIRS+source): Infect source susp/known (chin/facial cellulitis ) Physician Communication Physician Communication call placed to medicine service Diagnosis Primary Impression: Facial cellulitis Additional Impressions: Sepsis Substance abuse Admitting Information Admitting Physician Requests: Admit Lizett Lyon MD Mar 18, 2017 04:37
[2017-03-18] MEDS ORDERED: CLINDAMYCIN INJ 900 MG in SODIUM CHLORIDE 0.9% INJ 100 ML IV ONE (04:45)
[2017-03-18] MEDS ORDERED: KETOROLAC TROMETHAMINE 30 MG/ML (IVP) VIAL IVP ONE (04:45)
[2017-03-18] MEDS ORDERED: SODIUM CHLOR 0.9% 1000 ML INJ 1,000 ML IV ONE ×2 (04:45)
[2017-03-18] MEDS ORDERED: PIPERACIL-TAZO 4.5 GM PREMIX 100 ML IV ONE (04:45)
[2017-03-18] MEDS ORDERED: VANCOMYCIN INJ 200 ML IV ONE (04:45)
[2017-03-18 05:06] LABS: AUTOMATED NEUTROPHIL # 16.1 TH/MM3 (1.8-7.7); BASOPHIL % 0.3 % (0.0-2.0); EOSINOPHIL % 0.2 % (0.0-4.0); HEMATOCRIT 38.9 % (39.0-51.0); HEMOGLOBIN 13.9 GM/DL (13.0-17.0); LYMPH % 5.7 % (9.0-44.0); MEAN CELL VOLUME 88.9 FL (80.0-100.0); MEAN CORPUSCULAR HEMOGLOBIN 31.8 PG (27.0-34.0); MEAN CORPUSCULAR HGB CONC 35.8 % (32.0-36.0); MEAN PLATELET VOLUME 8.6 FL (7.0-11.0); MONO % 4.6 % (0.0-8.0); MONOCYTE # 0.8 TH/MM3 (0-0.9); NEUT % 89.2 % (16.0-70.0); PLATELET COUNT 241 TH/MM3 (150-450); RED BLOOD COUNT 4.37 MIL/MM3 (4.50-5.90); RED CELL DISTRIBUTION WIDTH 12.9 % (11.6-17.2); WHITE BLOOD COUNT 18.1 TH/MM3 (4.0-11.0)
[2017-03-18 05:24] LABS: BICARBONATE 25.6 MEQ/L (21.0-32.0); CALCIUM 8.6 MG/DL (8.5-10.1); CREATININE 0.78 MG/DL (0.60-1.30)
[2017-03-18] MEDS ORDERED: IOHEXOL 350 MG/ML 10 ML VIAL (for RAD DIAG) IVCONTRAST ONE (05:50)
--- NOTE | 2017-03-18 06:02 | RADRPT ---
EXAM DATE/TIME: 03/18/2017 05:38 [facility] COMPARISON: No previous studies available for comparison. INDICATIONS : Swelling and pain from mentum of mandible down center of neck. IV CONTRAST: 75 cc Omnipaque 350 (iohexol) IV RADIATION DOSE: 19.74 CTDIvol (mGy) MEDICAL HISTORY : None SURGICAL HISTORY : None. ENCOUNTER: Initial ACUITY: 1 day PAIN SCALE: 7/10 LOCATION: facial and neck TECHNIQUE: Volumetric scanning of the neck was performed. Using automated exposure control and adjustment of th e mA and/or kV according to patient size, radiation dose was kept as low as reasonably achievable to obtain optimal diagnostic quality images. DICOM format image data is available electronically for r eview and comparison. FINDINGS: NASOPHARYNX: The nasopharyngeal airway has a normal configuration. No mucosal thickening or mass is seen. OROPHARYNX: The intrinsic muscles of the tongue are symmetric. The tonsillar pillars are intact. The prevertebr al soft tissues are not thickened. LARYNX: The supraglottic, glottic, and infraglottic structures are intact. PARAPHARYNGEAL: The parapharyngeal space is intact. SALIVARY GLANDS: The parotid and submandibular glands are intact. LYMPH NODES: There several mildly prominent bilateral cervical lymph nodes. There is a prominent lymph node along the left submental location measuring 1.5 cm. There is nonspecific edema and soft tissue swelling inv olving the soft tissues along the anterior neck below the mandible along the midline. No loculated fl uid collections. THYROID: Homogeneous enhancement without evidence of nodule. BONES: Unremarkable. Moderate opacification of the left maxillary sinus. CONCLUSION: 1. Nonspecific soft tissue swelling involving the subcutaneous soft tissues along the mid anterior ne ck. 2. Multiple nonspecific mildly prominent bilateral cervical lymph nodes suggestive of reactive cervic al adenopathy. 3. No evidence of a soft tissue abscess. 4. Chronic left maxillary sinus disease. Ector Xie MD on March 18, 2017 at 5:55 Board Certified Radiologist. This report was verified electronically.
[2017-03-18] MEDS ORDERED: TETANUS/DIPHTHERIA TOXOID ADULT 0.5 ML VIAL IM ONE (06:15)
[2017-03-18] MEDS ORDERED: VANCOMYCIN INJ 1,000 MG in SODIUM CHLOR 0.9% 250 ML INJ 250 ML IV ONE (06:45)
[2017-03-18 07:16] VITALS: BP 117/74; PULSE 97; RESP 18; TEMP 98.9; O2SAT 97
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
[2017-03-18] MEDS ORDERED: POTASSIUM CHLORIDE 10 MEQ CONTROLLED RELEASE TAB PO ONE (08:30)
[2017-03-18] MEDS ORDERED: oxyCODONE/ACETAMINOPHEN 10 MG/325 MG TAB PO PRN (09:00)
[2017-03-18] MEDS ORDERED: Vancomycin Consult Pharmacy 1 EA OTHER SCH ×2 (09:00→11:15)
[2017-03-18] MEDS ORDERED: ONDANSETRON HCL 4 MG/2 ML VIAL IVP PRN (09:00)
[2017-03-18] MEDS ORDERED: SODIUM CHLORIDE 0.9% FLUSH 10 ML FLUSH IV FLUSH PRN (09:00)
[2017-03-18] MEDS ORDERED: FLUoxetine HCL 20 MG CAP PO SCH ×2 (09:00→21:00)
[2017-03-18] MEDS ORDERED: ACETAMINOPHEN/HYDROcodone 325 MG/5 MG TAB PO PRN (09:00)
[2017-03-18 09:27] LABS: ALBUMIN 4.2 GM/DL (3.4-5.0); DIRECT BILIRUBIN ADULT 0.2 MG/DL (0.0-0.2)
[2017-03-18 09:29] LABS: INDIRECT BILIRUBIN 0.6 MG/DL (0.0-0.8); TOTAL BILIRUBIN ADULT 0.8 MG/DL (0.2-1.0); TOTAL PROTEIN 7.7 GM/DL (6.4-8.2)
[2017-03-18] MEDS ORDERED: oxyCODONE/ACETAMINOPHEN 5 MG/325 MG TAB PO PRN (09:30)
[2017-03-18] MEDS: SODIUM CHLORIDE 0.9% FLUSH 10 ML FLUSH IV FLUSH SCH ×2 (10:13→21:00)
[2017-03-18] MEDS: SODIUM CHLOR 0.9% 1000 ML INJ 1,000 ML IV SCH ×2 (10:14→18:21)
[2017-03-18] MEDS: ALPRAZolam 1 MG TAB PO PRN ×2 (10:14→22:00)
[2017-03-18] MEDS ORDERED: ACETAMINOPHEN 500 MG CPLT PO PRN (10:30)
[2017-03-18] MEDS ORDERED: IBUPROFEN 400 MG TAB PO PRN (11:15)
[2017-03-18] MEDS ORDERED: NALOXONE HCL 0.4 MG/ML AMP IV PUSH PRN (11:15)
[2017-03-18] MEDS ORDERED: traMADol HCL 50 MG TAB PO PRN (11:15)
[2017-03-18 12:00] VITALS: BP 104/67; PULSE 86; RESP 18; O2SAT 97
--- NOTE | 2017-03-18 12:01 | HHI.FPPN ---
Addendum to progress note ADDENDUM Reason for addendum: Additonal documentation Additional information Patient seen and examined bedside. Patient states he continues to have moderate pain from his hands and feet that radiates to his spinal cord. It is questionable whether this is chronic. Patient states that the swelling, erythema , and scabbing under his chin has improved since he arrived in the ED and started getting antibiotics. Patient denies any chest pain/shortness of breath. He has been swallowing pills without difficulty PLAN - Passed swallow test, full diet permitted - Start vancomycin with pharmacy consulted for severe facial cellulitis - CT: No evidence of abscess - We'll consider steroids if no improvement - Follow up ID consult - Follow up psychiatry consult Faith Green MD R2 Mar 18, 2017 12:01
[2017-03-18] MEDS: PIPERACIL-TAZO 3.375 GM PREMIX 50 ML IV SCH ×2 (12:13→17:45)
[2017-03-18] MEDS: LACTOBACILLUS ACIDOPHILUS TAB PO SCH ×2 (12:13→21:58)
[2017-03-18] MEDS: ENOXAPARIN SODIUM 40 MG/0.4 ML SYRINGE SQ SCH (12:14)
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
[2017-03-18 16:00] VITALS: BP 120/84; PULSE 93; RESP 16; O2SAT 100
[2017-03-18] MEDS: PANTOPRAZOLE SODIUM 40 MG VIAL IV PUSH SCH (16:11)
[2017-03-18] MEDS: VANCOMYCIN INJ 1,250 MG in SODIUM CHLOR 0.9% 250 ML INJ 250 ML IV SCH ×2 (16:12→21:59)
[2017-03-18] MEDS: methylPREDNISolone SOD SUCC 40 MG/1 ML VIAL IV PUSH SCH (16:12)
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
[2017-03-18] MEDS ORDERED: VANCOMYCIN IV SCH (19:15)
[2017-03-18] MEDS ORDERED: SODIUM CHLOR 0.9% IV SCH (19:15)
[2017-03-18 20:00] VITALS: BP 116/71; PULSE 90; RESP 20; TEMP 97.5; O2SAT 98
[2017-03-18] MEDS: DOCUSATE SODIUM 50 MG/SENNA 8.6 MG TAB PO SCH (21:00)
[2017-03-18] MEDS: PIPERACILLIN/TAZ 3.375 GM VIAL 3.375 GM in SODIUM CHLORIDE 0.9% INJ 100 ML IV SCH (21:59)
[2017-03-18] MEDS: traMADol HCL 50 MG TAB PO PRN (22:01)
[2017-03-18] MEDS: HYDROmorphone HCL PF 2 MG/ML VIAL IV PUSH PRN (23:23)
[2017-03-19] VITALS: BP 129/74; PULSE 103; RESP 20; TEMP 98; O2SAT 98
[2017-03-19] MEDS: SODIUM CHLOR 0.9% 1000 ML INJ 1,000 ML IV SCH ×2 (01:45→09:45)
[2017-03-19] MEDS: traMADol HCL 50 MG TAB PO PRN ×4 (02:34→21:24)
[2017-03-19] MEDS: methylPREDNISolone SOD SUCC 40 MG/1 ML VIAL IV PUSH SCH (02:35)
[2017-03-19] MEDS: KETOROLAC TROMETHAMINE 30 MG/ML (IVP) VIAL IVP PRN ×3 (02:35→14:40)
[2017-03-19] MEDS: PIPERACILLIN/TAZ 3.375 GM VIAL 3.375 GM in SODIUM CHLORIDE 0.9% INJ 100 ML IV SCH (05:29)
[2017-03-19] MEDS: HYDROmorphone HCL PF 2 MG/ML VIAL IV PUSH PRN ×3 (05:30→23:05)
[2017-03-19] MEDS: ALPRAZolam 1 MG TAB PO PRN ×2 (06:40→17:16)
[2017-03-19] MEDS ORDERED: PHARMACY ORDERED LAB ONE (06:45)
[2017-03-19] MEDS: VANCOMYCIN INJ 1,250 MG in SODIUM CHLOR 0.9% 250 ML INJ 250 ML IV SCH ×3 (06:58→23:03)
[2017-03-19 07:11] LABS: AUTOMATED NEUTROPHIL # 11.3 TH/MM3 (1.8-7.7); BASOPHIL % 0.1 % (0.0-2.0); EOSINOPHIL % 0.1 % (0.0-4.0); HEMATOCRIT 36.1 % (39.0-51.0); HEMOGLOBIN 12.9 GM/DL (13.0-17.0); LYMPH % 5.2 % (9.0-44.0); LYMPHOCYTE # 0.6 TH/MM3 (1.0-4.8); MEAN CELL VOLUME 89.4 FL (80.0-100.0); MEAN CORPUSCULAR HGB CONC 35.8 % (32.0-36.0); MEAN PLATELET VOLUME 9.6 FL (7.0-11.0); MONO % 1.8 % (0.0-8.0); MONOCYTE # 0.2 TH/MM3 (0-0.9); NEUT % 92.8 % (16.0-70.0); PLATELET COUNT 220 TH/MM3 (150-450); RED BLOOD COUNT 4.04 MIL/MM3 (4.50-5.90); WHITE BLOOD COUNT 12.2 TH/MM3 (4.0-11.0)
[2017-03-19 07:23] LABS: BICARBONATE 20.9 MEQ/L (21.0-32.0); CALCIUM 8.3 MG/DL (8.5-10.1); CREATININE 0.61 MG/DL (0.60-1.30)
[2017-03-19 08:00] VITALS: BP 113/72; PULSE 75; RESP 19; TEMP 96.8; O2SAT 99
[2017-03-19] MEDS: SODIUM CHLORIDE 0.9% FLUSH 10 ML FLUSH IV FLUSH SCH ×2 (09:00→21:00)
[2017-03-19] MEDS: LACTOBACILLUS ACIDOPHILUS TAB PO SCH ×2 (09:51→21:21)
[2017-03-19] MEDS: DOCUSATE SODIUM 50 MG/SENNA 8.6 MG TAB PO SCH ×2 (09:51→21:22)
[2017-03-19] MEDS: FLUoxetine HCL 20 MG CAP PO SCH (09:51)
--- NOTE | 2017-03-19 10:36 | HHI.FPPN ---
Subjective Remarks Patient seen and examined at bedside this morning. No acute events overnight. Pt complained of numbness sensation chin area. Pt stated pain has improved, currently rates 8/10. Pt reports that swallowing food has improved since receiving tramadol for pain. Objective Vitals Vital Signs Date Time Temp Pulse Resp B/P (MAP) Pulse Ox O2 Delivery O2 Flow Rate FiO2 03/19/17 08:00 96.8 75 19 113/72 (86) 99 03/19/17 00:00 98.0 103 20 129/74 (92) 98 03/18/17 20:00 97.5 90 20 116/71 (86) 98 03/18/17 16:45 03/18/17 16:00 93 16 120/84 (96) 100 Room Air 03/18/17 12:00 86 18 104/67 (79) 97 Room Air I/O 03/18/17 03/18/17 03/18/17 03/19/17 03/19/17 03/19/17 07:00 15:00 23:00 07:00 15:00 23:00 Intake Total 1100 ml 2500 ml 312 ml 720 ml Balance 1100 ml 2500 ml 312 ml 720 ml Intake Oral 0 ml 720 ml IV Total 1100 ml 2500 ml 312 ml # Voids 1 # Bowel Movements 0 Result Diagram: 03/19/17 0616 03/19/17 0616 Imaging Last Impressions Neck CT 03/18/17 0000 Signed Impressions: Service Date/Time: Saturday, March 18, 2017 05:38 - CONCLUSION: 1. Nonspecific soft tissue swelling involving the subcutaneous soft tissues along the mid anterior neck. 2. Multiple nonspecific mildly prominent bilateral cervical lymph nodes suggestive of reactive cervical adenopathy. 3. No evidence of a soft tissue abscess. 4. Chronic left maxillary sinus disease. Ector Xie MD Objective Remarks Physical Exam GENERAL: This is a well-nourished, well-developed patient, in no apparent distress SKIN: 7 x 5 cm localized swollen area involving the chin and surrounding skin that includes a 3 cm area of skin sloughing and superior area of skin darkening and induration. tender to palpation. Improved from yesterday. HEAD: Atraumatic. Normocephalic. No temporal or scalp tenderness. EYES: Pupils equal round and reactive. Extraocular motions intact. No scleral icterus. No injection or drainage. ENT: Nose without bleeding, purulent drainage or septal hematoma. Throat without erythema, tonsillar hypertrophy or exudate. Uvula midline. Airway patent. NECK: Trachea midline. No JVD or lymphadenopathy. Supple, nontender, no meningeal signs. CARDIOVASCULAR: Regular rate and rhythm without murmurs, gallops, or rubs. RESPIRATORY: Clear to auscultation. Breath sounds equal bilaterally. No wheezes , rales, or rhonchi. GASTROINTESTINAL: Abdomen soft, non-tender, nondistended. No hepato-splenomegaly , or palpable masses. No guarding. MUSCULOSKELETAL: Extremities without clubbing, cyanosis, or edema. No joint tenderness, effusion, or edema noted. No calf tenderness. NEUROLOGICAL: Awake and alert. Cranial nerves II through XII intact. Motor and sensory grossly within normal limits. Five out of 5 muscle strength in all muscle groups. slow speech. A/P Assessment and Plan 26-year-old male presents with facial cellulitis and sepsis Problem List: (1) Sepsis ICD Codes: A41.9 - Sepsis, unspecified organism Status: Acute Plan: -Meet sepsis criteria on admission with pulse of 134 and WBC of 18.1. Lactic acid WNL at 1.0 -Source is facial cellulitis without soft tissue abscess per CT scan -Blood cultures no growth 1 day -Wound gram stain and culture pending -Continue vancomycin 1400 mg IV every 12 with pharmacy consult -Continue Zosyn 3.375 mg IV every 6 hours -Normal saline at 125 mls/hr -Infectious diseases consult due to facial location and rapid progression, recommendation appreciated -Pt started on IV steroid (methyprednisolone 40mg IV Q12h) yesterday (03/18) (2) Facial cellulitis ICD Codes: L03.211 - Cellulitis of face Status: Acute Plan: -Antibiotic plan as above -Wound care consult -Percocet when necessary for pain -Dilaudid 0.5 mg IV every 6 hours when necessary breakthrough pain -Toradol 30 mg IV every 6 hours when necessary inflammation -VS WNL, pt afebrile, WBC downtrending, 12.2 today (3) Irritable bowel syndrome ICD Codes: K58.9 - Irritable bowel syndrome Status: Chronic Plan: -History of chronic abdominal pain with constipation -Patient is not currently on any medications for IBS or UC -Lactobacillus 1 tab by mouth twice a day while on antibiotics (4) Inflammatory bowel diseases (IBD) ICD Codes: K52.9 - Noninfective gastroenteritis and colitis, unspecified Status: Chronic Plan: -Not currently on any medications -Monitor for increased diarrhea (5) Major depress dis, severe ICD Codes: F32.2 - Major depressive disorder, single episode, severe without psychotic features Plan: Continue fluoxetine 40 mg in the morning and 20 mg at bedtime -pt placed on ciwa protocol per psych recommendations (6) FEN/DVT PPX/GI PPX/Nursing Orders Plan: Fluids: NS @ 125 mls/hr IV - consider switching to D5 half-normal saline if patient is unable to tolerate oral intake Electrolytes: Will monitor and replace as needed Nutrition: Regular adult diet DVT Prophylaxis: Lovenox 40mg daily GI Prophylaxis: None currently Constipation prophylaxis: Pericolace 1 tab PO BID PRN Medications Tylenol 650 mg by mouth every 4 hours when necessary temperature greater than 100.4F Zofran 4 mg IV push every 6 hours when necessary nausea vomiting -Vitals Q4h -Monitor I's and O's -air sampling and monitoring with telemetry with continuous vital signs -Activity OOB ad devorah -Case management consult to assist with discharge disposition See the residents documentation for details. I saw and evaluated the patient regarding the aguayo portions of this evaluation and agree with the residents findings and plans as written. Parts of this note were created using [employer] voice recognition software program. While efforts were made to correct any mistakes made by this software, some mistakes, errors, and omissions may remain in the final note that were not caught when the note was originally created. Plan of care was discussed and agreed upon with the patient as specifically documented in the above note. An opportunity to ask questions with explanation was provided. Patient voiced understanding on all information reviewed and discussed. Maile Spring MD, R1 Mar 19, 2017 10:36
[2017-03-19] MEDS: ENOXAPARIN SODIUM 40 MG/0.4 ML SYRINGE SQ SCH (11:00)
[2017-03-19 12:00] VITALS: BP 111/74; PULSE 80; RESP 18; TEMP 96.9; O2SAT 98
[2017-03-19] MEDS ORDERED: LORazepam 2 MG/ML VIAL IV PUSH PRN ×4 (12:45)
[2017-03-19] MEDS ORDERED: LORazepam 2 MG TAB PO PRN (12:45)
[2017-03-19] MEDS ORDERED: LORazepam 1 MG TAB PO PRN (12:45)
[2017-03-19] MEDS ORDERED: FLUMAZENIL 0.5 MG/5 ML VIAL IV PUSH PRN (12:45)
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
[2017-03-19 16:00] VITALS: BP 118/66; PULSE 60; RESP 18; TEMP 97; O2SAT 99
[2017-03-19] MEDS: predniSONE 20 MG TAB PO SCH ×2 (16:00→21:22)
[2017-03-19] MEDS: PANTOPRAZOLE SODIUM 40 MG VIAL IV PUSH SCH (17:25)
[2017-03-19 20:00] VITALS: BP 120/58; PULSE 69; RESP 18; TEMP 97; O2SAT 99
[2017-03-20] VITALS: BP 120/59; PULSE 77; RESP 20; TEMP 97.7; O2SAT 99
[2017-03-20] MEDS: ALPRAZolam 1 MG TAB PO PRN ×2 (01:41→10:26)
[2017-03-20] MEDS: traMADol HCL 50 MG TAB PO PRN ×4 (01:42→18:18)
[2017-03-20] MEDS: VANCOMYCIN INJ 1,250 MG in SODIUM CHLOR 0.9% 250 ML INJ 250 ML IV SCH (06:39)
[2017-03-20] MEDS: SODIUM CHLOR 0.9% 1000 ML INJ 1,000 ML IV SCH ×2 (06:40→08:22)
[2017-03-20] MEDS: HYDROmorphone HCL PF 2 MG/ML VIAL IV PUSH PRN (06:46)
[2017-03-20 08:00] VITALS: BP 124/64; PULSE 64; RESP 16; TEMP 97.9; O2SAT 98
[2017-03-20] MEDS: predniSONE 20 MG TAB PO SCH (08:20)
[2017-03-20] MEDS: SODIUM CHLORIDE 0.9% FLUSH 10 ML FLUSH IV FLUSH SCH (08:20)
[2017-03-20] MEDS: DOCUSATE SODIUM 50 MG/SENNA 8.6 MG TAB PO SCH (08:21)
[2017-03-20] MEDS: LACTOBACILLUS ACIDOPHILUS TAB PO SCH (08:21)
[2017-03-20] MEDS: FLUoxetine HCL 20 MG CAP PO SCH (08:22)
[2017-03-20 08:38] LABS: AUTOMATED NEUTROPHIL # 10.3 TH/MM3 (1.8-7.7); BASOPHIL % 0.1 % (0.0-2.0); HEMATOCRIT 34.1 % (39.0-51.0); HEMOGLOBIN 12.1 GM/DL (13.0-17.0); LYMPH % 8.4 % (9.0-44.0); MEAN CORPUSCULAR HEMOGLOBIN 31.9 PG (27.0-34.0); MEAN CORPUSCULAR HGB CONC 35.4 % (32.0-36.0); MEAN PLATELET VOLUME 9.4 FL (7.0-11.0); MONO % 3.6 % (0.0-8.0); MONOCYTE # 0.4 TH/MM3 (0-0.9); NEUT % 87.9 % (16.0-70.0); PLATELET COUNT 232 TH/MM3 (150-450); RED BLOOD COUNT 3.79 MIL/MM3 (4.50-5.90); RED CELL DISTRIBUTION WIDTH 12.9 % (11.6-17.2); WHITE BLOOD COUNT 11.7 TH/MM3 (4.0-11.0)
[2017-03-20] MEDS: ENOXAPARIN SODIUM 40 MG/0.4 ML SYRINGE SQ SCH (11:08)
[2017-03-20 12:00] VITALS: BP 122/61; PULSE 56; RESP 16; TEMP 97.2; O2SAT 99
[2017-03-20] MEDS: PANTOPRAZOLE SODIUM 40 MG VIAL IV PUSH SCH (14:27)
[2017-03-20] MEDS ORDERED: PHARMACY ORDERED LAB ONE (14:45)
[2017-03-20] MEDS ORDERED: CEPH-460 PO (14:53)
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
[2017-03-20] MEDS ORDERED: CEPHALEXIN MONOHYDRATE 500 MG CAP PO SCH (15:00)
--- NOTE | 2017-03-20 15:42 | HHI.DCPOC ---
Discharge Care Plan Diagnosis: (1) Facial cellulitis Goals to Promote Your Health * To prevent worsening of your condition and complications * To maintain your health at the optimal level Directions to Meet Your Goals Take your medications as prescribed Follow your dietary instruction Follow activity as directed Keep your appointments as scheduled Take your immunizations and boosters as scheduled If your symptoms worsen call your PCP, if no PCP go to Urgent Care Center or Emergency Room Smoking is Dangerous to Your Health. Avoid second hand smoke Call the 24-hour hour crisis hotline for domestic abuse at Maile Spring MD, R1 Mar 20, 2017 15:42
--- NOTE | 2017-03-20 16:08 | PD.WCN.NOT ---
Wound Consult Description: Wound care ordered by for Chin Communicated with: Shante SOTO [address] [place] [address] , Recommendation: 1) Cleanse chin/face with warm antibacterial soap and water ,Rinse ,Pat dry leave open to air Additional Information: Patient was seen today on [place] by contract technical writer and Shante SOTO [address] [place] [address].Patient alert in bed .Assessment finding patient has open scaly area on chin measuring 4.4cm x6.0cm no drainage or odor noted.Chin cleansed with warm water pat dry left open to air. Patient stated he did not want to put anything on it at this time.Patients wishes granted. Sanaz Stephenson [facility] Mar 20, 2017 16:08
[2017-03-20] MEDS ORDERED: TRAM50 PO (18:02)
--- NOTE | 2017-03-20 22:58 | HHI.FPPN ---
Subjective Remarks Attending note: Patient was seen with resident team, overall is doing that although still has some discomfort around his jaw and neck. Objective Vitals Vital Signs Date Time Temp Pulse Resp B/P (MAP) Pulse Ox O2 Delivery O2 Flow Rate FiO2 03/20/17 12:00 97.2 56 16 122/61 (81) 99 03/20/17 08:00 97.9 64 16 124/64 (84) 98 03/20/17 00:00 97.7 77 20 120/59 (79) 99 I/O 03/19/17 03/19/17 03/19/17 03/20/17 03/20/17 03/20/17 07:00 15:00 23:00 07:00 15:00 23:00 Intake Total 1170 ml 960 ml 1970 ml 250 ml 820 ml Balance 1170 ml 960 ml 1970 ml 250 ml 820 ml Intake Oral 720 ml 960 ml 720 ml 820 ml IV Total 450 ml 1250 ml 250 ml # Voids 1 3 2 3 # Bowel Movements 0 0 0 0 Result Diagram: 03/20/17 0811 03/19/17 0616 Objective Remarks Physical Exam GENERAL: This is a well-nourished, well-developed patient, in no apparent distress SKIN: Erythematous areas around the chin, no drainage, no unusual redness extending proximally HEAD: Remarkable EYES: No scleral icterus ENT: Inspection of oropharynx does not reveal any localized lesions, specifically the posterior 2 lower teeth patient mentions are uncomfortable. NECK: Tenderness bilaterally in the submandibular area CARDIOVASCULAR: Regular rate and rhythm without murmurs, gallops, or rubs. RESPIRATORY: Clear to auscultation. No Rales appreciated GASTROINTESTINAL: Abdomen soft, non-tender, nondistended. No hepato-splenomegaly , or palpable masses. MUSCULOSKELETAL: Feet are warm and dry, calves are supple. NEUROLOGICAL: Grossly nonlocalizing. A/P Assessment and Plan Clinical assessment 03/20/17: Discussed with infectious disease, but culture repeat have been drawn, clearance by infectious disease to send time with close follow-up, case discussed with resident and physician agrees with resident assessment, orders for therapy and disposition. Problem List: (1) Sepsis ICD Codes: A41.9 - Sepsis, unspecified organism Status: Acute Plan: -Meet sepsis criteria on admission with pulse of 134 and WBC of 18.1. Lactic acid WNL at 1.0 -Source is facial cellulitis without soft tissue abscess per CT scan -Blood cultures no growth 1 day -Wound gram stain and culture pending -Continue vancomycin 1400 mg IV every 12 with pharmacy consult -Continue Zosyn 3.375 mg IV every 6 hours -Normal saline at 125 mls/hr -Infectious diseases consult due to facial location and rapid progression, recommendation appreciated -Pt started on IV steroid (methyprednisolone 40mg IV Q12h) yesterday (03/18) (2) Facial cellulitis ICD Codes: L03.211 - Cellulitis of face Status: Acute Plan: -Antibiotic plan as above -Wound care consult -Percocet when necessary for pain -Dilaudid 0.5 mg IV every 6 hours when necessary breakthrough pain -Toradol 30 mg IV every 6 hours when necessary inflammation -VS WNL, pt afebrile, WBC downtrending, 12.2 today (3) Irritable bowel syndrome ICD Codes: K58.9 - Irritable bowel syndrome Status: Chronic Plan: -History of chronic abdominal pain with constipation -Patient is not currently on any medications for IBS or UC -Lactobacillus 1 tab by mouth twice a day while on antibiotics (4) Inflammatory bowel diseases (IBD) ICD Codes: K52.9 - Noninfective gastroenteritis and colitis, unspecified Status: Chronic Plan: -Not currently on any medications -Monitor for increased diarrhea (5) Major depress dis, severe ICD Codes: F32.2 - Major depressive disorder, single episode, severe without psychotic features Plan: Continue fluoxetine 40 mg in the morning and 20 mg at bedtime -pt placed on ciwa protocol per psych recommendations (6) FEN/DVT PPX/GI PPX/Nursing Orders Plan: Fluids: NS @ 125 mls/hr IV - consider switching to D5 half-normal saline if patient is unable to tolerate oral intake Electrolytes: Will monitor and replace as needed Nutrition: Regular adult diet DVT Prophylaxis: Lovenox 40mg daily GI Prophylaxis: None currently Constipation prophylaxis: Pericolace 1 tab PO BID PRN Medications Tylenol 650 mg by mouth every 4 hours when necessary temperature greater than 100.4F Zofran 4 mg IV push every 6 hours when necessary nausea vomiting -Vitals Q4h -Monitor I's and O's -engine monitor with telemetry with continuous vital signs -Activity OOB ad devorah -Case management consult to assist with discharge disposition See the residents documentation for details. I saw and evaluated the patient regarding the aguayo portions of this evaluation and agree with the residents findings and plans as written. Parts of this note were created using [employer] voice recognition software program. While efforts were made to correct any mistakes made by this software, some mistakes, errors, and omissions may remain in the final note that were not caught when the note was originally created. Plan of care was discussed and agreed upon with the patient as specifically documented in the above note. An opportunity to ask questions with explanation was provided. Patient voiced understanding on all information reviewed and discussed. Fabio Farley MD Mar 20, 2017 22:58
--- NOTE | 2017-03-21 09:47 | HHI.FPPN ---
Subjective Remarks THIS NOTE IS FOR 03/20/17 Pt seen and examined this AM. He is much improved since the day of his admission. He denies any difficulty eating or drinking PO. Denies N/V. Denies fever/chills. Denies CP/SOB/dizziness. Objective Vitals Vital Signs Date Time Temp Pulse Resp B/P (MAP) Pulse Ox O2 Delivery O2 Flow Rate FiO2 03/20/17 12:00 97.2 56 16 122/61 (81) 99 I/O 03/20/17 03/20/17 03/20/17 03/21/17 03/21/17 03/21/17 07:00 15:00 23:00 07:00 15:00 23:00 Intake Total 1970 ml 250 ml 820 ml Balance 1970 ml 250 ml 820 ml Intake Oral 720 ml 820 ml IV Total 1250 ml 250 ml # Voids 2 3 # Bowel Movements 0 0 Result Diagram: 03/20/17 0811 03/19/17 0616 Objective Remarks Physical Exam GENERAL: This is a well-nourished, well-developed patient, in no apparent distress SKIN: Erythematous areas around the chin, no drainage, no unusual redness extending proximally. Much improved from admission HEAD: Remarkable EYES: No scleral icterus ENT: Inspection of oropharynx does not reveal any localized lesions, specifically the posterior 2 lower teeth patient mentions are uncomfortable. NECK: Tenderness bilaterally in the submandibular area CARDIOVASCULAR: Regular rate and rhythm without murmurs, gallops, or rubs. RESPIRATORY: Clear to auscultation. No Rales appreciated GASTROINTESTINAL: Abdomen soft, non-tender, nondistended. No hepato-splenomegaly , or palpable masses. MUSCULOSKELETAL: Feet are warm and dry, calves are supple. NEUROLOGICAL: Grossly nonlocalizing. A/P Assessment and Plan Clinical assessment 03/20/17: Discussed with infectious disease, but culture repeat have been drawn, clearance by infectious disease to send time with close follow-up, case discussed with resident and physician agrees with resident assessment, orders for therapy and disposition. Problem List: (1) Sepsis ICD Codes: A41.9 - Sepsis, unspecified organism Status: Acute Plan: -Meet sepsis criteria on admission with pulse of 134 and WBC of 18.1. Lactic acid WNL at 1.0 -Source is facial cellulitis without soft tissue abscess per CT scan -Blood cultures no growth 1 day -Wound gram stain and culture pending -Continue vancomycin 1400 mg IV every 12 with pharmacy consult -Continue Zosyn 3.375 mg IV every 6 hours -Normal saline at 125 mls/hr -Infectious diseases consult due to facial location and rapid progression, recommendation appreciated -Pt started on IV steroid (methyprednisolone 40mg IV Q12h) yesterday (03/18) - Plan to D/C today with PO ABX (2) Facial cellulitis ICD Codes: L03.211 - Cellulitis of face Status: Acute Plan: -Antibiotic plan as above -Wound care consult -Percocet when necessary for pain -Dilaudid 0.5 mg IV every 6 hours when necessary breakthrough pain -Toradol 30 mg IV every 6 hours when necessary inflammation -VS WNL, pt afebrile, WBC downtrending, 12.2 today (3) Irritable bowel syndrome ICD Codes: K58.9 - Irritable bowel syndrome Status: Chronic Plan: -History of chronic abdominal pain with constipation -Patient is not currently on any medications for IBS or UC -Lactobacillus 1 tab by mouth twice a day while on antibiotics (4) Inflammatory bowel diseases (IBD) ICD Codes: K52.9 - Noninfective gastroenteritis and colitis, unspecified Status: Chronic Plan: -Not currently on any medications -Monitor for increased diarrhea (5) Major depress dis, severe ICD Codes: F32.2 - Major depressive disorder, single episode, severe without psychotic features Plan: Continue fluoxetine 40 mg in the morning and 20 mg at bedtime -pt placed on ciwa protocol per psych recommendations (6) FEN/DVT PPX/GI PPX/Nursing Orders Plan: Fluids: NS @ 125 mls/hr IV - consider switching to D5 half-normal saline if patient is unable to tolerate oral intake Electrolytes: Will monitor and replace as needed Nutrition: Regular adult diet DVT Prophylaxis: Lovenox 40mg daily GI Prophylaxis: None currently Constipation prophylaxis: Pericolace 1 tab PO BID PRN Medications Tylenol 650 mg by mouth every 4 hours when necessary temperature greater than 100.4F Zofran 4 mg IV push every 6 hours when necessary nausea vomiting -Vitals Q4h -Monitor I's and O's -kier tender with telemetry with continuous vital signs -Activity OOB ad devorah -Case management consult to assist with discharge disposition Faith Green MD R2 Mar 21, 2017 09:47
== END 2017-03-20 18:47 | disposition home or self-care (01) | DRG 872 ==
LOC: NEPC 22:53 → NEDA 03-18 08:08 → NEDH 03-18 13:07 → N07A 03-18 16:46
PROVIDERS: ADMIT Family Medicine; ATTEND Family Medicine
DX: A41.01 Sepsis due to Methicillin susceptible Staphylococcus aureus (principal); L03.221 Cellulitis of neck; L03.211 Cellulitis of face; F32.9 Major depressive disorder, single episode, unspecified; B95.61 Methicillin susceptible Staphylococcus aureus infection as the cause of diseases classified elsewhere; K58.9 Irritable bowel syndrome, unspecified; F43.10 Post-traumatic stress disorder, unspecified; G89.4 Chronic pain syndrome; F41.9 Anxiety disorder, unspecified
CPT/HCPCS: 70491; 80048; 80076; 80202; 80307; 83605; 85025; 86403; 87040; 87070; 87147; 87186; 87205; 90471; 90714; 96365; 96367; 96375; C9113; J1170; J1650; J1885; J2405; J2543; J2920; J3370; J7030; J7050; J7512; Q9967

== ENCOUNTER 2017-04-14 16:30 | Inpatient (IN) | payer SELFPAY ==
[~2017-04-14] VITALS: Ht 167.6 cm; Wt 71.5 kg
[~2017-04-14 16:30] MED LIST changes: +CEPH-460 PO; +TRAM50 PO; -TRAZ100T10 PO
[2017-04-14 16:42] VITALS: BP 117/64; PULSE 108; RESP 16; TEMP 100.3; O2SAT 97
[2017-04-14] MEDS ORDERED: DICY10 PO (17:08)
--- NOTE | 2017-04-14 17:12 | PD ---
HPI Chief Complaint: Skin Problem Time Seen by Provider: 16:51 Travel History International Travel<30 days: No Contact w/Intl Traveler<30days: No Traveled to known affect area: No History of Present Illness HPI This patient complains of infected skin lesions cropping up over the last 6 days. Patient was recently hospitalized for sepsis and facial infection. He received IV antibiotics followed by 1 about etc. home. Symptoms his oral antibiotics finished he developed fever and spreading scabbed skin lesions on his legs. It spread up to his buttocks. His chin became red and had a bit swollen which is where his prior infection was located. He developed fever. He also complains of coughing up some phlegm. He denies HIV or immunosuppression. Symptoms moderately severe. No alleviating factors. Complains of generalized weakness as well. No exacerbating factors. Duration 6 days. PFSH Past Medical History Anemia: Yes Blood Disorders: No Anxiety: Yes Depression: Yes Cancer: No Cardiovascular Problems: No Diminished Hearing: No Endocrine: No Gastrointestinal Disorders: Yes (colitis) Genitourinary: No Immune Disorder: No Musculoskeletal: No Neurologic: No Psychiatric: Yes Reproductive: No Respiratory: No Influenza Vaccination: No ?: Not Past Surgical History Abdominal Surgery: No Appendectomy: Yes (05/06/16) Cardiac Surgery: No Thoracic Surgery: No Other Surgery: Yes (appendectomy 05/06/16) Social History Alcohol Use: No Tobacco Use: No Substance Use: No Allergies-Medications (Allergen,Severity, Reaction): Coded Allergies: diphenhydramine (Verified Allergy, Severe, 04/14/17) anxiety attack morphine (Unverified Adverse Reaction, Mild, HIVES, 04/14/17) denies Reported Meds & Prescriptions Reported Meds & Active Scripts Active Alprazolam 1 Mg Tab 1 Mg PO Q8H PRN Fluoxetine (Fluoxetine HCl) 20 Mg Tab 20 Mg PO HS Please take 40mg in AM and 20mg in PM Fluoxetine (Fluoxetine HCl) 40 Mg Cap 40 Cap PO DAILY Please take 40mg in AM and 20mg in PM Reported Bentyl (Dicyclomine HCl) 10 Mg Cap 10 Mg PO TID PRN Review of Systems General / Constitutional: Positive: Fever Eyes: No: Visual changes HENT: No: Headaches Cardiovascular: No: Chest Pain or Discomfort Respiratory: Positive: Cough, No: Shortness of Breath Gastrointestinal: No: Abdominal Pain Genitourinary: No: Dysuria Musculoskeletal: Positive: Weakness, No: Pain Skin: Positive Rash, Positive Lesions Neurologic: Positive: Weakness Psychiatric: No: Depression Endocrine: No: Polydipsia Hematologic/Lymphatic: No: Easy Bruising Physical Exam Narrative GENERAL: Well-nourished, well-developed patient with weakness and fever and skin lesions . SKIN: Focused skin assessment reveals scabbed lesions on both legs and buttocks. There is no fluctuance or active drainage. Skin is Warm and dry. HEAD: Atraumatic. Normocephalic. EYES: Pupils equal and round. No scleral icterus. No injection or drainage. ENT: No nasal bleeding or discharge. Mucous membranes pink and moist. Patient has macular erythema in an oval patch around the chin but no drainage there. NECK: Trachea midline. No JVD. No meningeal signs CARDIOVASCULAR: Regular rate and rhythm. No murmur appreciated. RESPIRATORY: No accessory muscle use. Clear to auscultation. Breath sounds equal bilaterally. GASTROINTESTINAL: Abdomen soft, non-tender, nondistended. Hepatic and splenic margins not palpable. MUSCULOSKELETAL: No obvious deformities. No clubbing. No cyanosis. No edema. NEUROLOGICAL: Awake and alert. No obvious cranial nerve deficits. Motor grossly within normal limits. Normal speech. PSYCHIATRIC: Appropriate mood and affect; insight and judgment normal. Data Data Last Documented VS Vital Signs Date Time Temp Pulse Resp B/P (MAP) Pulse Ox O2 Delivery O2 Flow Rate FiO2 04/14/17 18:01 104 18 141/72 (95) 97 04/14/17 16:42 100.3 Orders Orders Sepsis Workup Initiated (04/14/17 ) Complete Blood Count With Diff (04/14/17 17:04) Comprehensive Metabolic Panel (04/14/17 17:04) Lactic Acid Sepsis Protocol (04/14/17 17:04) Influenzae A/B Antigen (04/14/17 17:04) Blood Culture (04/14/17 17:04) Chest, Single Ap (04/14/17 17:04) Ecg Monitoring (04/14/17 17:04) Iv Access Insert/Monitor (04/14/17 17:04) Oximetry (04/14/17 17:04) Oxygen Administration (04/14/17 17:04) Sodium Chlor 0.9% 1000 Ml Inj (Ns 1000 M (04/14/17 17:15) Vancomycin Inj (Vancomycin Inj) (04/14/17 17:15) Admit Order (Ed Use Only) (04/14/17 18:18) Labs Laboratory Tests Test 04/14/17 17:20 04/14/17 17:25 White Blood Count 4.2 TH/MM3 Red Blood Count 4.11 MIL/MM3 Hemoglobin 13.0 GM/DL Hematocrit 36.8 % Mean Corpuscular Volume 89.5 FL Mean Corpuscular Hemoglobin 31.7 PG Mean Corpuscular Hemoglobin Concent 35.4 % Red Cell Distribution Width 13.0 % Platelet Count 199 TH/MM3 Mean Platelet Volume 8.2 FL Neutrophils (%) (Auto) 77.3 % Lymphocytes (%) (Auto) 10.7 % Monocytes (%) (Auto) 10.5 % Eosinophils (%) (Auto) 0.6 % Basophils (%) (Auto) 0.9 % Neutrophils # (Auto) 3.3 TH/MM3 Lymphocytes # (Auto) 0.5 TH/MM3 Monocytes # (Auto) 0.4 TH/MM3 Eosinophils # (Auto) 0.0 TH/MM3 Basophils # (Auto) 0.0 TH/MM3 CBC Comment DIFF FINAL Differential Comment Blood Urea Nitrogen 8 MG/DL Creatinine 0.83 MG/DL Random Glucose 105 MG/DL Total Protein 7.2 GM/DL Albumin 3.7 GM/DL Calcium Level 8.4 MG/DL Alkaline Phosphatase 95 U/L Aspartate Amino Transf (AST/SGOT) 26 U/L Alanine Aminotransferase (ALT/SGPT) 33 U/L Total Bilirubin 0.1 MG/DL Sodium Level 135 MEQ/L Potassium Level 3.2 MEQ/L Chloride Level 101 MEQ/L Carbon Dioxide Level 28.0 MEQ/L Anion Gap 6 MEQ/L Estimat Glomerular Filtration Rate 112 ML/MIN Lactic Acid Level 1.2 mmol/L [facility] Medical Decision Making Medical Screen Exam Complete: Yes Emergency Medical Condition: Yes Medical Record Reviewed: Yes Differential Diagnosis Sepsis, septic emboli, cellulitis Narrative Course I have reviewed the patient's electronic medical record. Reviewed his discharge summary from his most recent admission for facial infection 1710: I've examined the patient and ordered a sepsis workup Patient has low-grade fever and tachycardia I'm giving him IV normal saline 1 L bolus as well as 1 g IV vancomycin 182: Reevaluation of the patient CBC and metabolic profiles are normal However he looks clinically worse than his labs Is febrile and tachycardic and has significant weakness and spreading rash and returning facial infection I think he will continue to get sicker if not hospitalized I reviewed with the hospitalist will admit Sepsis Criteria SIRS Criteria (2 or more): Heart rate over 90 Diagnosis Primary Impression: Facial infection Additional Impressions: Generalized weakness Failure of outpatient treatment Admitting Information Admitting Physician Requests: Admit Abraham Otero MD Apr 14, 2017 17:12
[2017-04-14] MEDS ORDERED: VANCOMYCIN INJ 1,000 MG in SODIUM CHLOR 0.9% 250 ML INJ 250 ML IV ONE (17:15)
[2017-04-14] MEDS ORDERED: SODIUM CHLOR 0.9% 1000 ML INJ 1,000 ML IV ONE ×2 (17:15→19:00)
[2017-04-14 17:34] LABS: AUTOMATED NEUTROPHIL # 3.3 TH/MM3 (1.8-7.7); BASOPHIL % 0.9 % (0.0-2.0); EOSINOPHIL % 0.6 % (0.0-4.0); HEMATOCRIT 36.8 % (39.0-51.0); LYMPH % 10.7 % (9.0-44.0); LYMPHOCYTE # 0.5 TH/MM3 (1.0-4.8); MEAN CELL VOLUME 89.5 FL (80.0-100.0); MEAN CORPUSCULAR HEMOGLOBIN 31.7 PG (27.0-34.0); MEAN CORPUSCULAR HGB CONC 35.4 % (32.0-36.0); MEAN PLATELET VOLUME 8.2 FL (7.0-11.0); MONO % 10.5 % (0.0-8.0); MONOCYTE # 0.4 TH/MM3 (0-0.9); NEUT % 77.3 % (16.0-70.0); PLATELET COUNT 199 TH/MM3 (150-450); RED BLOOD COUNT 4.11 MIL/MM3 (4.50-5.90); WHITE BLOOD COUNT 4.2 TH/MM3 (4.0-11.0)
[2017-04-14 17:42] VITALS: O2SAT 96
--- NOTE | 2017-04-14 17:42 | RADRPT ---
EXAM DATE/TIME: 04/14/2017 17:16 [facility] COMPARISON: No previous studies available for comparison. INDICATIONS : Shortness of breath. MEDICAL HISTORY : Inflammatory bowel disease SURGICAL HISTORY : Appendectomy. ENCOUNTER: Initial ACUITY: 1 day PAIN SCORE: 8/10 LOCATION: Bilateral chest FINDINGS: A single view of the chest demonstrates the lungs to be symmetrically aerated without evidence of mas s, infiltrate or effusion. The cardiomediastinal contours are unremarkable. Osseous structures are intact. CONCLUSION: No acute cardiopulmonary process. Ryan Parikh MD on April 14, 2017 at 17:39 Board Certified Radiologist. This report was verified electronically.
[2017-04-14 17:43] LABS: CHLORIDE 101 MEQ/L (98-107); SODIUM (NA) 135 MEQ/L (136-145)
[2017-04-14 17:46] LABS: ALBUMIN 3.7 GM/DL (3.4-5.0); CALCIUM 8.4 MG/DL (8.5-10.1); GLUCOSE,RANDOM 105 MG/DL (74-106)
[2017-04-14 17:47] LABS: BLOOD UREA NITROGEN 8 MG/DL (7-18)
[2017-04-14 17:49] LABS: ALT (GPT) 33 U/L (12-78); AST (GOT) 26 U/L (15-37)
[2017-04-14 17:50] LABS: CREATININE 0.83 MG/DL (0.60-1.30); GLOMERULAR FILTRATION RATE 112 ML/MIN (>89)
[2017-04-14 17:51] LABS: TOTAL BILIRUBIN ADULT 0.1 MG/DL (0.2-1.0); TOTAL PROTEIN 7.2 GM/DL (6.4-8.2)
[2017-04-14 17:52] LABS: ALKALINE PHOSPHATASE 95 U/L (45-117)
[2017-04-14 18:01] VITALS: BP 141/72; PULSE 104; RESP 18; O2SAT 97
[2017-04-14] MEDS ORDERED: ACETAMINOPHEN 325 MG TAB PO PRN (18:45)
[2017-04-14] MEDS ORDERED: SODIUM CHLORIDE 0.9% FLUSH 10 ML FLUSH IV FLUSH PRN (18:45)
[2017-04-14] MEDS ORDERED: MAGNESIUM HYDROXIDE SUSP 30 ML CUP PO PRN (18:45)
[2017-04-14] MEDS ORDERED: BISACODYL 10 MG SUPP RECTAL PRN (18:45)
[2017-04-14] MEDS ORDERED: NAPROXEN 500 MG TAB PO PRN (18:45)
[2017-04-14] MEDS ORDERED: NALOXONE HCL 0.4 MG/ML AMP IV PUSH PRN (18:45)
[2017-04-14] MEDS ORDERED: SENNOSIDES 8.6 MG TAB PO PRN (18:45)
[2017-04-14] MEDS ORDERED: Vancomycin Consult Pharmacy 1 EA OTHER SCH (18:45)
--- NOTE | 2017-04-14 18:55 | HHI.HP ---
HPI Service [facility] Primary Care Physician Unknown Admission Diagnosis Facial infection,rash,failure of outpt rx, gen weakness Diagnoses: Chief Complaint: Worsening infected skin lesions Failed outpatient therapy Travel History International Travel<30 Days: No Contact w/Intl Traveler <30 Da: No Traveled to Known Affected Are: No History of Present Illness This is a 26-year-old male patient with an no medical history of irritable bowel syndrome who presented to the ED with continued skin lesions that have been worsening over the past six days. Patient has been recently hospitalized on March 18 of this year with sepsis secondary to facial infection. Patient received IV antibiotics, vancomycin and Zosyn, was followed by infectious disease and sent home on antibiotics by mouth. Patient states he finished antibiotics three days ago, was actually feeling better, facial infection was looking improved when this morning he woke up with worsening scabbing lesions on his right upper arm right buttock and right lower leg. States he has had subjective fevers, did not check them at home. Denies any nausea or vomiting, diarrhea. Patient does admit to a productive cough with yellow phlegm. Does complain of generalized weakness and generalized pain at lesion sites. Review of Systems Constitutional: COMPLAINS OF: Fatigue, Fever, Chills Eyes: DENIES: Blurred vision, Diplopia Respiratory: COMPLAINS OF: Cough, Shortness of breath, DENIES: Sputum production Cardiovascular: DENIES: Chest pain, Palpitations Gastrointestinal: COMPLAINS OF: Nausea, DENIES: Abdominal pain, Black stools, Bloody stools, Constipation, Diarrhea, Vomiting Musculoskeletal: DENIES: Joint pain Integumentary: COMPLAINS OF: Abnormal pigmentation, Rash Hematologic/lymphatic: DENIES: Bruising Immunologic/allergic: DENIES: Eczema Psychiatric: COMPLAINS OF: Anxiety Except as stated in HPI: all other systems reviewed are Neg Past Family Social History Past Medical History Depression Ulcerative colitis History of MRSA Past Surgical History Appendectomy Reported Medications Active Alprazolam 1 Mg Tab 1 Mg PO Q8H PRN Fluoxetine (Fluoxetine HCl) 20 Mg Tab 20 Mg PO HS Please take 40mg in AM and 20mg in PM Fluoxetine (Fluoxetine HCl) 40 Mg Cap 40 Cap PO DAILY Please take 40mg in AM and 20mg in PM Reported Bentyl (Dicyclomine HCl) 10 Mg Cap 10 Mg PO TID PRN Allergies: Coded Allergies: diphenhydramine (Verified Allergy, Severe, 04/14/17) anxiety attack morphine (Unverified Adverse Reaction, Mild, HIVES, 04/14/17) denies Family History Maternal medical history significant for cardiovascular disease Social History Denies any tobacco, alcohol or drug use. Physical Exam Vital Signs Vital Signs Date Time Temp Pulse Resp B/P (MAP) Pulse Ox O2 Delivery O2 Flow Rate FiO2 04/14/17 18:01 104 18 141/72 (95) 97 04/14/17 17:42 96 04/14/17 16:42 100.3 108 16 117/64 (81) 97 Physical Exam GENERAL: This is a well-nourished, well-developed patient, in no apparent distress. SKIN: No rashes, ecchymoses or lesions. Cool and dry. HEAD: Atraumatic. Normocephalic. No temporal or scalp tenderness. EYES: Pupils equal round and reactive. Extraocular motions intact. No scleral icterus. No injection or drainage. ENT: Nose without bleeding, purulent drainage or septal hematoma. Throat without erythema, tonsillar hypertrophy or exudate. Uvula midline. Airway patent. NECK: Trachea midline. No JVD or lymphadenopathy. Supple, nontender, no meningeal signs. CARDIOVASCULAR: Regular rate and rhythm without murmurs, gallops, or rubs. RESPIRATORY: Clear to auscultation. Breath sounds equal bilaterally. No wheezes , rales, or rhonchi. GASTROINTESTINAL: Abdomen soft, non-tender, nondistended. No hepato-splenomegaly , or palpable masses. No guarding. MUSCULOSKELETAL: Extremities without clubbing, cyanosis, or edema. No joint tenderness, effusion, or edema noted. No calf tenderness. Negative Homans sign bilaterally. NEUROLOGICAL: Awake and alert. Cranial nerves II through XII intact. Motor and sensory grossly within normal limits. Five out of 5 muscle strength in all muscle groups. Normal speech. Laboratory Laboratory Tests Test 04/14/17 17:20 04/14/17 17:25 White Blood Count 4.2 Red Blood Count 4.11 Hemoglobin 13.0 Hematocrit 36.8 Mean Corpuscular Volume 89.5 Mean Corpuscular Hemoglobin 31.7 Mean Corpuscular Hemoglobin Concent 35.4 Red Cell Distribution Width 13.0 Platelet Count 199 Mean Platelet Volume 8.2 Neutrophils (%) (Auto) 77.3 Lymphocytes (%) (Auto) 10.7 Monocytes (%) (Auto) 10.5 Eosinophils (%) (Auto) 0.6 Basophils (%) (Auto) 0.9 Neutrophils # (Auto) 3.3 Lymphocytes # (Auto) 0.5 Monocytes # (Auto) 0.4 Eosinophils # (Auto) 0.0 Basophils # (Auto) 0.0 CBC Comment DIFF FINAL Differential Comment Blood Urea Nitrogen 8 Creatinine 0.83 Random Glucose 105 Total Protein 7.2 Albumin 3.7 Calcium Level 8.4 Alkaline Phosphatase 95 Aspartate Amino Transf (AST/SGOT) 26 Alanine Aminotransferase (ALT/SGPT) 33 Total Bilirubin 0.1 Sodium Level 135 Potassium Level 3.2 Chloride Level 101 Carbon Dioxide Level 28.0 Anion Gap 6 Estimat Glomerular Filtration Rate 112 Lactic Acid Level 1.2 Date/Time Source Procedure Growth Status 04/14/17 17:25 Blood Peripheral Aerobic Blood Culture Pending Received 04/14/17 17:25 Blood Peripheral Anaerobic Blood Culture Pending Received 04/14/17 17:23 Nasal Washing Influenza Types A,B Antigen (VINI) Pending Received Result Diagram: 04/14/17 1720 04/14/17 1720 Imaging Last Impressions Chest X-Ray 04/14/17 1704 Signed Impressions: Service Date/Time: Friday, April 14, 2017 17:16 - CONCLUSION: No acute cardiopulmonary process. Ryan Parikh MD Septic Shock Reassessment Septic shock perfusion: reassessment completed Caprini VTE Risk Assessment Caprini VTE Risk Assessment: No/Low Risk (score <= 1) Caprini Risk Assessment Model Point Value = 1 Point Value = 2 Point Value = 3 Point Value = 5 Age 41-60 Minor surgery BMI > 25 kg/m2 Swollen legs Varicose veins or History of unexplained or recurrent spontaneous Oral contraceptives or hormone replacement Sepsis (< 1 month) Serious lung disease, including pneumonia (< 1 month) Abnormal pulmonary function Acute myocardial infarction Congestive heart failure (< 1 month) History of inflammatory bowel disease Medical patient at bed rest Age 61-74 Arthroscopic surgery Major open surgery (> 45 min) Laparoscopic surgery (> 45 min) Malignancy Confined to bed (> 72 hours) Immobilizing plaster cast Central venous access Age >= 75 History of VTE Family history of VTE Factor V Leiden Prothrombin [id number] Lupus anticoagulant Anticardiolipin antibodies Elevated serum homocysteine Heparin-induced thrombocytopenia Other congenital or acquired thrombophilia Stroke (< 1 month) Elective arthroplasty Hip, pelvis, or leg fracture Acute spinal cord injury (< 1 month) Prophylaxis Regimen Total Risk Factor Score Risk Level Prophylaxis Regimen 0-1 Low Early ambulation 2 Moderate Order ONE of the following: *Sequential Compression Device (SCD) *Heparin 5000 units SQ BID 3-4 Higher Order ONE of the following medications: *Heparin 5000 units SQ TID *Enoxaparin/Lovenox 40 mg SQ daily (WT < 150 kg, CrCl > 30 mL/min) *Enoxaparin/Lovenox 30 mg SQ daily (WT < 150 kg, CrCl > 10-29 mL/min) *Enoxaparin/Lovenox 30 mg SQ BID (WT < 150 kg, CrCl > 30 mL/min) AND/OR *Sequential Compression Device (SCD) 5 or more Highest Order ONE of the following medications: *Heparin 5000 units SQ TID (Preferred with Epidurals) *Enoxaparin/Lovenox 40 mg SQ daily (WT < 150 kg, CrCl > 30 mL/min) *Enoxaparin/Lovenox 30 mg SQ daily (WT < 150 kg, CrCl > 10-29 mL/min) *Enoxaparin/Lovenox 30 mg SQ BID (WT < 150 kg, CrCl > 30 mL/min) AND *Sequential Compression Device (SCD) Assessment and Plan Assessment and Plan This is a 26-year-old male patient with an no medical history of irritable bowel syndrome who presented to the ED with continued skin lesions that have been worsening over the past six days. Multiple skin lesions possible cellulitis Failed outpatient antibiotics Recent hospitalization Patient presents with facial wound, right shoulder wounds, right buttock wounds and right lower extremity wounds. Recent hospitalization with wound cultures positive for Staphylococcus aureus. At that time was placed on vancomycin and Zosyn. Was also given a dose of clindamycin. Does not meet sepsis criteria at this time. Lactic acid within normal limits. Patient was given 1 g vancomycin in the ED. Consult pharmacy to dose. Add Ancef. Status post 1 L Taran bolus in ED. Continue IV fluids. TMAX 100.3 monitor for infection. Wound cultures ordered. No leukocytosis. Follow CBC in a.m., Blood cultures are ordered and pending. Influenza pending. Follow. Continue cardiac telemetry, rule out any arrhythmias. Pain control, naproxen and Tylenol with codeine available when necessary as needed. Per pain scale. Zofran available when necessary for nausea. Supportive care. Hypokalemia: K3.2 on presentation will replace. Follow BNP in a.m. Cough: Chest x-ray reviewed showing no acute cardiopulmonary process. Patient with history of drug use on prior urine screen Patient denies any current drug use. Will check a urine toxicology. Patient will also be ruled out for HIV. Patient consented. We'll continue to follow. DVT prophylaxis: SCDs. Addendum by Dr. Montgomery, Pt seen and examined. lying in bed, NAD, lungs CTA x 2. unlabored breathing. has diffuse scatterred scabs with erythematous bases over BL LE and upper extremities with no purulent drainage. Wonder if this is viral in origin. cover w/ vanc and ancef, consulting ID. HIV test ordered. Physician Certification 2 Midnight Certification Type: Admission for Inpatient Services Order for Inpatient Services The services are ordered in accordance with Medicare regulations or non- Medicare payer requirements, as applicable. In the case of services not specified as inpatient-only, they are appropriately provided as inpatient services in accordance with the 2-midnight benchmark. Estimated LOS (days): 2 2 days is the estimated time the patient will need to remain in the hospital, assuming treatment plan goals are met and no additional complications. Post-Hospital Plan: Home Stefani Nelson Apr 14, 2017 18:55 Gray Montgomery MD Apr 15, 2017 17:02
[2017-04-14] MEDS ORDERED: POTASSIUM CHLORIDE 10 MEQ CONTROLLED RELEASE TAB PO ONE (19:00)
[2017-04-14] MEDS: ONDANSETRON HCL 4 MG/2 ML VIAL IVP PRN (19:28)
[2017-04-14 19:36] VITALS: BP 138/88; PULSE 102; RESP 18; TEMP 99.5; O2SAT 98
[2017-04-14 20:30] VITALS: PULSE 102
[2017-04-14 20:37] VITALS: BP 118/66; PULSE 103; RESP 18; TEMP 100.1; O2SAT 99
[2017-04-14] MEDS: DOCUSATE SODIUM 50 MG/SENNA 8.6 MG TAB PO SCH (21:28)
[2017-04-14] MEDS: SODIUM CHLOR 0.9% 1000 ML INJ 1,000 ML IV SCH (21:32)
[2017-04-14] MEDS: SODIUM CHLORIDE 0.9% FLUSH 10 ML FLUSH IV FLUSH SCH (21:33)
[2017-04-14] MEDS: ACETAMINOPHEN/CODEINE ELIX 120 MG/12 MG/5 ML CUP PO PRN (21:42)
[2017-04-15] VITALS (7 sets, daily range): BP systolic 111–133; BP diastolic 57–81; PULSE 75–100; RESP 16–20; TEMP 98.9–100.3; O2SAT 93–99
[2017-04-15] MEDS: VANCOMYCIN 1,000 MG/NS 250 ML IV SCH ×6 (02:11→18:07)
[2017-04-15] MEDS: ACETAMINOPHEN/CODEINE ELIX 120 MG/12 MG/5 ML CUP PO PRN ×3 (04:47→18:01)
[2017-04-15] MEDS: SODIUM CHLOR 0.9% 1000 ML INJ 1,000 ML IV SCH ×3 (04:49→21:27)
[2017-04-15 07:50] LABS: AUTOMATED NEUTROPHIL # 2.6 TH/MM3 (1.8-7.7); BASOPHIL % 0.2 % (0.0-2.0); EOSINOPHIL % 0.7 % (0.0-4.0); HEMATOCRIT 36.9 % (39.0-51.0); LYMPH % 21.4 % (9.0-44.0); LYMPHOCYTE # 0.8 TH/MM3 (1.0-4.8); MEAN CELL VOLUME 90.5 FL (80.0-100.0); MEAN CORPUSCULAR HEMOGLOBIN 29.5 PG (27.0-34.0); MEAN CORPUSCULAR HGB CONC 32.6 % (32.0-36.0); MEAN PLATELET VOLUME 9.4 FL (7.0-11.0); MONO % 13.6 % (0.0-8.0); MONOCYTE # 0.5 TH/MM3 (0-0.9); NEUT % 64.1 % (16.0-70.0); PLATELET COUNT 172 TH/MM3 (150-450); RED BLOOD COUNT 4.08 MIL/MM3 (4.50-5.90); RED CELL DISTRIBUTION WIDTH 12.6 % (11.6-17.2); WHITE BLOOD COUNT 3.9 TH/MM3 (4.0-11.0)
[2017-04-15 08:05] LABS: BICARBONATE 25.7 MEQ/L (21.0-32.0); CALCIUM 8.1 MG/DL (8.5-10.1)
[2017-04-15 08:09] LABS: CREATININE 0.78 MG/DL (0.60-1.30)
[2017-04-15] MEDS: SODIUM CHLORIDE 0.9% FLUSH 10 ML FLUSH IV FLUSH SCH ×2 (08:41→21:00)
[2017-04-15] MEDS: DOCUSATE SODIUM 50 MG/SENNA 8.6 MG TAB PO SCH ×2 (08:42→21:20)
--- NOTE | 2017-04-15 11:02 | HHI.PR ---
Subjective Remarks Follow-up cellulitis. Patient seen and examined, lying in bed comfortably, denies any acute events overnight. Does complain of continued pain despite naproxen and Tylenol 3. Has been eating, denies any abdominal pain, nausea or vomiting. Wounds on chin, right shoulder, right buttock and right calf appearing improved. TMAX 100.3 overnight. No leukocytosis. Objective Vitals Vital Signs Date Time Temp Pulse Resp B/P (MAP) Pulse Ox O2 Delivery O2 Flow Rate FiO2 04/15/17 08:00 99.8 89 20 133/81 (98) 97 04/15/17 04:00 99.4 98 18 127/70 (89) 96 04/15/17 00:33 100.3 100 18 118/59 (78) 93 04/14/17 20:37 100.1 103 18 118/66 (83) 99 04/14/17 20:30 102 04/14/17 20:08 04/14/17 19:36 99.5 102 18 138/88 (105) 98 Room Air 04/14/17 18:01 104 18 141/72 (95) 97 04/14/17 17:42 96 04/14/17 16:42 100.3 108 16 117/64 (81) 97 I/O 04/14/17 04/14/17 04/14/17 04/15/17 04/15/17 04/15/17 07:00 15:00 23:00 07:00 15:00 23:00 Intake Total 1350 ml 1000 ml 1150 ml Output Total 800 ml Balance 1350 ml 1000 ml 350 ml Intake Oral 750 ml IV Total 1350 ml 250 ml 1150 ml Output Urine Total 800 ml Result Diagram: 04/15/17 0620 04/15/17 0620 Imaging Last Impressions Chest X-Ray 04/14/17 1704 Signed Impressions: Service Date/Time: Friday, April 14, 2017 17:16 - CONCLUSION: No acute cardiopulmonary process. Ryan Parikh MD Objective Remarks GENERAL: Well-nourished, well-developed patient in NAD. SKIN: Warm and dry. No rash. Facial wound, right shoulder, right buttock and right knee wound. All open to air, no drainage. HEAD: Normocephalic. Atraumatic. EYES: Pupils equal and round. No scleral icterus. No injection or drainage. ENT: No nasal bleeding or discharge. Mucous membranes pink and moist. NECK: Supple. Trachea midline. CARDIOVASCULAR: Regular rate and rhythm. S1, S2 noted. No murmur appreciated. RESPIRATORY: No accessory muscle use. Clear to auscultation. Breath sounds equal bilaterally. GASTROINTESTINAL: Abdomen soft, non-tender, nondistended. Normoactive bowel sounds x4. MUSCULOSKELETAL: No obvious deformities. Extremities without clubbing, cyanosis , or edema. NEUROLOGICAL: Awake and alert. No obvious cranial nerve deficits. Motor grossly within normal limits. 5/5 muscle strength in bilateral upper and lower extremities. Normal speech. PSYCHIATRIC: Appropriate mood and affect; insight and judgment normal. A/P Assessment and Plan This is a 26-year-old male patient with an no medical history of irritable bowel syndrome who presented to the ED with continued skin lesions that have been worsening over the past six days. Multiple skin lesions possible cellulitis Failed outpatient antibiotics Recent hospitalization Patient presents with facial wound, right shoulder wounds, right buttock wounds and right lower extremity wounds. Recent hospitalization with wound cultures positive for Staphylococcus aureus. At that time was placed on vancomycin and Zosyn. Was also given a dose of clindamycin. Does not meet sepsis criteria at this time. Lactic acid within normal limits. Patient was given 1 g vancomycin in the ED. Consult pharmacy to dose. Added Ancef. Status post 1 L NS bolus in ED. Continue IV fluids. TMAX 100.3 monitor for infection. Wound cultures ordered. No leukocytosis. Afebrile overnight. Blood cultures are ordered today. Influenza pending. Follow. Continue cardiac telemetry, rule out any arrhythmias. No arrhythmias overnight. Pain control, naproxen and Tylenol with codeine available when necessary as needed. Per pain scale. Zofran available when necessary for nausea. Supportive care. Hypokalemia, resolved: Status post replacement. BMP reviewed, normal now. Cough, stable: Chest x-ray reviewed showing no acute cardiopulmonary process. Patient with history of drug use on prior urine screen Patient denies any current drug use. Will check a urine toxicology. Pending. Patient will also be ruled out for HIV. Patient consented. Test pending. Follow. DVT prophylaxis: SCDs. Stefani Nelson Apr 15, 2017 11:02
[2017-04-15] MEDS: FLUoxetine HCL 20 MG CAP PO SCH ×2 (13:01→21:20)
[2017-04-15] MEDS: ALPRAZolam 1 MG TAB PO PRN ×2 (13:02→21:22)
[2017-04-15] MEDS ORDERED: PHARMACY ORDERED LAB ONE (17:45)
--- NOTE | 2017-04-15 19:08 | PD.CONS ---
History of Present Illness Service ID CONSULT DR MERIDA Consult Requested By FEVER RASH Primary Care Physician Unknown Diagnoses: (1) Irritable bowel syndrome (2) Major depress dis, severe (3) Facial infection (4) Failure of outpatient treatment History of Present Illness PT WITH FEVER , WEAKNESS AND WORSENING RASHES OVER HIS RIGHT ARM, THIGH AND LEGS AND BUTTOCK. HE WAS HERE IN [place] WITH A SEVERE CHIN CELLULITIS WHICH WAS COMPLICATED BY MSSA BACTEREMIA IN 1 BOTTLE. HE WAS DCD ON KEFLEX. HE FINISHED THE COURSE AND A WEEK LATER STARTED TO ERUPT BLISTERY LESIONS TO HIS RIGHT DELTOID AND THEN HIS THIGH AND LEG. HE HAS HAD FEVER AND WEAKNESS. ID CONSULTED. HE HAS AN HIV TEST PENDING. NO RECENT TRAVEL. NO FLU VACCINE. NO DYSPHAGIA. NO FALLS. NO TRAUMAS. Review of Systems Constitutional: COMPLAINS OF: Fatigue, Fever, DENIES: Diaphoretic episodes Eyes: DENIES: Blurred vision Ears, nose, mouth, throat: DENIES: Tinnitus Respiratory: COMPLAINS OF: Cough, Sputum production Cardiovascular: DENIES: Chest pain Gastrointestinal: COMPLAINS OF: Abdominal pain, Nausea Integumentary: COMPLAINS OF: Rash Psychiatric: COMPLAINS OF: Depression Past Family Social History Allergies: Coded Allergies: diphenhydramine (Verified Allergy, Severe, 04/14/17) anxiety attack morphine (Unverified Adverse Reaction, Mild, HIVES, 04/14/17) denies Past Medical History Past Medical History Depression Ulcerative colitis History of MRSA Past Surgical History Past Surgical History Appendectomy Reported Medications Reported Medications Active Alprazolam 1 Mg Tab 1 Mg PO Q8H PRN Fluoxetine (Fluoxetine HCl) 20 Mg Tab 20 Mg PO HS Please take 40mg in AM and 20mg in PM Fluoxetine (Fluoxetine HCl) 40 Mg Cap 40 Cap PO DAILY Please take 40mg in AM and 20mg in PM Reported Bentyl (Dicyclomine HCl) 10 Mg Cap 10 Mg PO TID PRN Allergies: Coded Allergies: diphenhydramine (Verified Allergy, Severe, 04/14/17) anxiety attack morphine (Unverified Adverse Reaction, Mild, HIVES, 04/14/17) denies Active Ordered Medications VANCOMYCIN / ANCEF Family History HEART DISEASE IN MOM Social History LIVES ALONE BORN AND RAISED HERE IN [facility] NO ALCOHOL , TOBACCO , OR DRUG USE HAS A DOG Physical Exam Vital Signs Vital Signs Date Time Temp Pulse Resp B/P (MAP) Pulse Ox O2 Delivery O2 Flow Rate FiO2 04/15/17 16:00 99.2 76 20 111/57 (75) 96 04/15/17 12:00 100.1 93 20 114/63 (80) 95 04/15/17 08:00 99.8 89 20 133/81 (98) 97 04/15/17 04:00 99.4 98 18 127/70 (89) 96 04/15/17 00:33 100.3 100 18 118/59 (78) 93 04/14/17 20:37 100.1 103 18 118/66 (83) 99 04/14/17 20:30 102 04/14/17 20:08 04/14/17 19:36 99.5 102 18 138/88 (105) 98 Room Air Physical Exam GENERAL: This is a well-nourished, well-developed patient, in no apparent distress. SKIN: yes rashes, ecchymoses or lesions. Cool and dry. noted rash with healing blisters to his right shoulder and right leg. he has noted lesions to his left thigh and buttock HEAD: Atraumatic. Normocephalic. No temporal or scalp tenderness. EYES: Pupils equal round and reactive. Extraocular motions intact. No scleral icterus. No injection or drainage. ENT: Nose without bleeding, purulent drainage or septal hematoma. Throat without erythema, tonsillar hypertrophy or exudate. Uvula midline. Airway patent. NECK: Trachea midline. No JVD or lymphadenopathy. Supple, nontender, no meningeal signs. CARDIOVASCULAR: Regular rate and rhythm without murmurs, gallops, or rubs. RESPIRATORY: Clear to auscultation. Breath sounds equal bilaterally. No wheezes , rales, or rhonchi. GASTROINTESTINAL: Abdomen soft, non-tender, nondistended. No hepato-splenomegaly , or palpable masses. No guarding. MUSCULOSKELETAL: Extremities without clubbing, cyanosis, or edema. No joint tenderness, effusion, or edema noted. No calf tenderness. Negative Homans sign bilaterally. NEUROLOGICAL: Awake and alert. Cranial nerves II through XII intact. Motor and sensory grossly within normal limits. Five out of 5 muscle strength in all muscle groups. Normal speech. Laboratory Laboratory Tests Test 04/14/17 19:20 04/15/17 06:20 04/15/17 17:35 04/15/17 18:30 White Blood Count 3.9 Red Blood Count 4.08 Hemoglobin 12.0 Hematocrit 36.9 Mean Corpuscular Volume 90.5 Mean Corpuscular Hemoglobin 29.5 Mean Corpuscular Hemoglobin Concent 32.6 Red Cell Distribution Width 12.6 Platelet Count 172 Mean Platelet Volume 9.4 Neutrophils (%) (Auto) 64.1 Lymphocytes (%) (Auto) 21.4 Monocytes (%) (Auto) 13.6 Eosinophils (%) (Auto) 0.7 Basophils (%) (Auto) 0.2 Neutrophils # (Auto) 2.6 Lymphocytes # (Auto) 0.8 Monocytes # (Auto) 0.5 Eosinophils # (Auto) 0.0 Basophils # (Auto) 0.0 CBC Comment DIFF FINAL Differential Comment Blood Urea Nitrogen 5 Creatinine 0.78 Random Glucose 121 Calcium Level 8.1 Sodium Level 140 Potassium Level 3.5 Chloride Level 107 Carbon Dioxide Level 25.7 Anion Gap 7 Estimat Glomerular Filtration Rate 120 Urine Barbiturates Screen NEG Urine Amphetamines Screen NEG Urine Benzodiazepines Screen POS Urine Cocaine Screen POS Urine Cannabinoids Screen POS Date/Time Source Procedure Growth Status 04/14/17 17:25 Blood Peripheral Aerobic Blood Culture - Preliminary NO GROWTH IN 1 DAY Resulted 04/14/17 17:25 Blood Peripheral Anaerobic Blood Culture - Preliminary NO GROWTH IN 1 DAY Resulted 04/14/17 17:23 Nasal Washing Influenza Types A,B Antigen (VINI) Pending Received 04/14/17 19:20 Wound Buttock Gram Stain Pending Received 04/14/17 19:20 Wound Buttock Wound Culture Pending Received Result Diagram: 04/15/17 0620 04/15/17 0620 Assessment and Plan Problem List: (1) Rash and nonspecific skin eruption ICD Codes: R21 - Rash and other nonspecific skin eruption Plan: check bc x 2 hiv pending check echo will fu (2) Facial infection ICD Codes: L08.9 - Local infection of the skin and subcutaneous tissue, unspecified Status: Acute (3) Leukocytosis ICD Codes: D72.829 - Elevated white blood cell count, unspecified Status: Resolved Sumi Connor Apr 15, 2017 19:08
[2017-04-16 00:05] VITALS: BP 139/92; PULSE 88; RESP 18; TEMP 98.9; O2SAT 98
[2017-04-16] MEDS: ACETAMINOPHEN/CODEINE ELIX 120 MG/12 MG/5 ML CUP PO PRN ×4 (00:13→22:05)
[2017-04-16] MEDS: VANCOMYCIN 1,000 MG/NS 250 ML IV SCH ×2 (01:10)
[2017-04-16 04:58] VITALS: BP 129/75; PULSE 82; RESP 16; TEMP 98.7; O2SAT 99
[2017-04-16 08:00] VITALS: BP 116/68; PULSE 92; RESP 20; TEMP 99.3; O2SAT 96
[2017-04-16] MEDS: FLUoxetine HCL 20 MG CAP PO SCH ×2 (09:12→22:05)
[2017-04-16] MEDS: DOCUSATE SODIUM 50 MG/SENNA 8.6 MG TAB PO SCH ×2 (09:12→22:05)
[2017-04-16] MEDS: SODIUM CHLORIDE 0.9% FLUSH 10 ML FLUSH IV FLUSH SCH ×2 (09:13→20:45)
[2017-04-16] MEDS: ALPRAZolam 1 MG TAB PO PRN ×2 (10:00→18:01)
[2017-04-16] MEDS: SODIUM CHLOR 0.9% 1000 ML INJ 1,000 ML IV SCH (10:02)
--- NOTE | 2017-04-16 10:34 | ECHRPT ---
Indication: SEPSIS- ENDOCARDITIS CONCLUSIONS Normal left ventricular size. Wall thickness is normal. The left ventricular systolic function is normal with an estimated ejection fraction in the range of 55-60%. Trivial pulmonary valve regurgitation. BP: / HR: Rhythm: MEASUREMENTS (Male / Female) Normal Values Technical Quality:Good 2D ECHO LV Diastolic Diameter PLAX 4.6 cm 4.2 - 5.9 / 3.9 - 5.3 cm LV Systolic Diameter PLAX 3.4 cm IVS Diastolic Thickness 0.8 cm 0.6 - 1.0 / 0.6 - 0.9 cm LVPW Diastolic Thickness 0.7 cm 0.6 - 1.0 / 0.6 - 0.9 cm LV Relative Wall Thickness 0.3 RV Internal Dim ED PLAX 2.1 cm LA Systolic Diameter LX 3.1 cm 3.0 - 4.0 / 2.7 - 3.8 cm M-MODE Aortic Root Diameter MM 3.5 cm AV Cusp Separation MM 2.1 cm DOPPLER Mitral E Point Velocity 101.0 cm/s Mitral A Point Velocity 66.6 cm/s Mitral E to A Ratio 1.5 TR Peak Velocity 175.0 cm/s TR Peak Gradient 12.3 mmHg FINDINGS LEFT VENTRICLE Normal left ventricular size. Wall thickness is normal. The left ventricular systolic function is normal with an estimated ejection fraction in the range of 55-60%. RIGHT VENTRICLE Normal right ventricular size and systolic function. LEFT ATRIUM The left atrial size is normal. RIGHT ATRIUM The right atrial size is normal. ATRIAL SEPTUM Normal atrial septal thickness without atrial level shunting by limited color doppler interrogation. AORTA The aortic root and proximal ascending aorta are normal in size on limited imaging. MITRAL VALVE Structurally normal mitral valve. No mitral valve stenosis or regurgitation. AORTIC VALVE Trileaflet aortic valve. No aortic valve stenosis or regurgitation. TRICUSPID VALVE Structurally normal tricuspid valve. No tricuspid valve stenosis or regurgitation. PULMONARY VALVE Trivial pulmonary valve regurgitation. VESSELS The inferior vena cava is normal in size. PERICARDIUM No pericardial effusion. Vikash Aguila MD (Electronically Signed) Final Date:16 April 2017 10:33
[2017-04-16] MEDS ORDERED: VANCOMYCIN INJ 1,250 MG in SODIUM CHLOR 0.9% 250 ML INJ 250 ML IV SCH (11:00)
[2017-04-16 12:00] VITALS: BP 125/70; PULSE 83; RESP 20; TEMP 98.5; O2SAT 97
--- NOTE | 2017-04-16 12:42 | HHI.PR ---
Subjective Remarks Follow-up cellulitis. Patient seen and examined, lying in bed comfortably. Patient states he is much improved. Pain is well-controlled. Tolerating by mouth intake, denies any nausea or vomiting or diarrhea. Afebrile overnight. Skin wounds improving. Awaiting cultures. Objective Vitals Vital Signs Date Time Temp Pulse Resp B/P (MAP) Pulse Ox O2 Delivery O2 Flow Rate FiO2 04/16/17 08:00 99.3 92 20 116/68 (84) 96 04/16/17 04:58 98.7 82 16 129/75 (93) 99 04/16/17 00:05 98.9 88 18 139/92 (108) 98 04/15/17 21:24 98.9 75 16 127/71 (89) 99 04/15/17 20:00 81 04/15/17 16:00 99.2 76 20 111/57 (75) 96 I/O 04/15/17 04/15/17 04/15/17 04/16/17 04/16/17 04/16/17 07:00 15:00 23:00 07:00 15:00 23:00 Intake Total 1000 ml 2120 ml 1000 ml 250 ml Output Total 800 ml 700 ml 800 ml Balance 1000 ml 1320 ml 300 ml -550 ml Intake Oral 750 ml 720 ml IV Total 250 ml 1400 ml 1000 ml 250 ml Output Urine Total 800 ml 700 ml 800 ml # Voids 2 # Bowel Movements 0 Result Diagram: 04/15/17 0620 04/15/17 0620 Imaging Last Impressions Chest X-Ray 04/14/17 1704 Signed Impressions: Service Date/Time: Friday, April 14, 2017 17:16 - CONCLUSION: No acute cardiopulmonary process. Ryan Parikh MD Objective Remarks GENERAL: Well-nourished, well-developed patient in [place]. SKIN: Warm and dry. No rash. Facial wound, right shoulder, right buttock and right knee wound. All open to air, no drainage. HEAD: Normocephalic. Atraumatic. EYES: Pupils equal and round. No scleral icterus. No injection or drainage. ENT: No nasal bleeding or discharge. Mucous membranes pink and moist. NECK: Supple. Trachea midline. CARDIOVASCULAR: Regular rate and rhythm. S1, S2 noted. No murmur appreciated. RESPIRATORY: No accessory muscle use. Clear to auscultation. Breath sounds equal bilaterally. GASTROINTESTINAL: Abdomen soft, non-tender, nondistended. Normoactive bowel sounds x4. MUSCULOSKELETAL: No obvious deformities. Extremities without clubbing, cyanosis , or edema. NEUROLOGICAL: Awake and alert. No obvious cranial nerve deficits. Motor grossly within normal limits. 5/5 muscle strength in bilateral upper and lower extremities. Normal speech. PSYCHIATRIC: Appropriate mood and affect; insight and judgment normal. A/P Assessment and Plan This is a 26-year-old male patient with an no medical history of irritable bowel syndrome who presented to the ED with continued skin lesions that have been worsening over the past six days. Multiple skin lesions possible cellulitis Failed outpatient antibiotics Recent hospitalization Patient presents with facial wound, right shoulder wounds, right buttock wounds and right lower extremity wounds. Recent hospitalization with wound cultures positive for Staphylococcus aureus. At that time was placed on vancomycin and Zosyn. Was also given a dose of clindamycin. Does not meet sepsis criteria at this time. Lactic acid within normal limits. Patient was given 1 g vancomycin in the ED. Consult pharmacy to dose. Added Ancef. Continue IV fluids. ID following. No new recommendations. ECHO ordered. Afebrile. Wound cultures ordered. No leukocytosis. Afebrile overnight. Blood cultures no growth to date. Influenza negative. Continue cardiac telemetry, rule out any arrhythmias. No arrhythmias overnight. Pain control, naproxen and Tylenol with codeine available when necessary as needed. Per pain scale. Zofran available when necessary for nausea. Supportive care. ECHO done and showing 55-60%. Normal ventricular size. Wall thickness normal. Trivial pulm valve regurgitation. Hypokalemia, resolved: Status post replacement. BMP reviewed, normal now. Cough, stable: Resolved. Chest x-ray reviewed showing no acute cardiopulmonary process. Patient with history of drug use on prior urine screen Patient denies any current drug use. Urine drug screen positive. Patient encouraged cessation. Patient open and expressing interest to stop illicit drugs. Patient will also be ruled out for HIV. Patient consented. Test pending. Follow. DVT prophylaxis: SCDs. Stefani Nelson Apr 16, 2017 12:42
--- NOTE | 2017-04-16 15:56 | HHI.IDPN ---
Subjective Subjective Remarks NO FEVER OR CHILL S + WEAKNESS+ Allergies: Coded Allergies: diphenhydramine (Verified Allergy, Severe, 04/14/17) anxiety attack morphine (Unverified Adverse Reaction, Mild, HIVES, 04/14/17) denies Review of Systems Constitutional Constitutional: Fatigue GI/Abdomen GI/Abdominal Exam: Constipation Objective . Vital Signs Date Time Temp Pulse Resp B/P (MAP) Pulse Ox O2 Delivery O2 Flow Rate FiO2 04/16/17 12:00 98.5 83 20 125/70 (88) 97 04/16/17 08:00 99.3 92 20 116/68 (84) 96 04/16/17 04:58 98.7 82 16 129/75 (93) 99 04/16/17 00:05 98.9 88 18 139/92 (108) 98 04/15/17 21:24 98.9 75 16 127/71 (89) 99 04/15/17 20:00 81 04/15/17 16:00 99.2 76 20 111/57 (75) 96 04/16/17 04/16/17 04/17/17 15:00 23:00 07:00 Intake Total 960 ml Output Total 750 ml Balance 210 ml Intake Oral 960 ml Output Urine Total 750 ml . Laboratory Tests Test 04/14/17 17:20 04/15/17 06:20 White Blood Count 4.2 TH/MM3 3.9 TH/MM3 Red Blood Count 4.11 MIL/MM3 4.08 MIL/MM3 Hemoglobin 13.0 GM/DL 12.0 GM/DL Hematocrit 36.8 % 36.9 % Mean Corpuscular Volume 89.5 FL 90.5 FL Mean Corpuscular Hemoglobin 31.7 PG 29.5 PG Mean Corpuscular Hemoglobin Concent 35.4 % 32.6 % Red Cell Distribution Width 13.0 % 12.6 % Platelet Count 199 TH/MM3 172 TH/MM3 Mean Platelet Volume 8.2 FL 9.4 FL Neutrophils (%) (Auto) 77.3 % 64.1 % Lymphocytes (%) (Auto) 10.7 % 21.4 % Monocytes (%) (Auto) 10.5 % 13.6 % Eosinophils (%) (Auto) 0.6 % 0.7 % Basophils (%) (Auto) 0.9 % 0.2 % Neutrophils # (Auto) 3.3 TH/MM3 2.6 TH/MM3 Lymphocytes # (Auto) 0.5 TH/MM3 0.8 TH/MM3 Monocytes # (Auto) 0.4 TH/MM3 0.5 TH/MM3 Eosinophils # (Auto) 0.0 TH/MM3 0.0 TH/MM3 Basophils # (Auto) 0.0 TH/MM3 0.0 TH/MM3 CBC Comment DIFF FINAL DIFF FINAL Differential Comment Laboratory Tests Test 04/14/17 17:20 04/14/17 17:25 04/15/17 06:20 Blood Urea Nitrogen 8 MG/DL 5 MG/DL Creatinine 0.83 MG/DL 0.78 MG/DL Random Glucose 105 MG/DL 121 MG/DL Total Protein 7.2 GM/DL Albumin 3.7 GM/DL Calcium Level 8.4 MG/DL 8.1 MG/DL Alkaline Phosphatase 95 U/L Aspartate Amino Transf (AST/SGOT) 26 U/L Alanine Aminotransferase (ALT/SGPT) 33 U/L Total Bilirubin 0.1 MG/DL Sodium Level 135 MEQ/L 140 MEQ/L Potassium Level 3.2 MEQ/L 3.5 MEQ/L Chloride Level 101 MEQ/L 107 MEQ/L Carbon Dioxide Level 28.0 MEQ/L 25.7 MEQ/L Anion Gap 6 MEQ/L 7 MEQ/L Estimat Glomerular Filtration Rate 112 ML/MIN 120 ML/MIN Lactic Acid Level 1.2 mmol/L Microbiology Date/Time Source Procedure Growth Status 04/15/17 20:11 Blood Peripheral Aerobic Blood Culture - Preliminary NO GROWTH IN 1 DAY Resulted 04/15/17 20:11 Blood Peripheral Anaerobic Blood Culture - Preliminary NO GROWTH IN 1 DAY Resulted 04/15/17 20:05 Blood Peripheral Aerobic Blood Culture - Preliminary NO GROWTH IN 1 DAY Resulted 04/15/17 20:05 Blood Peripheral Anaerobic Blood Culture - Preliminary NO GROWTH IN 1 DAY Resulted 04/14/17 17:25 Blood Peripheral Aerobic Blood Culture - Preliminary NO GROWTH IN 2 DAYS Resulted 04/14/17 17:25 Blood Peripheral Anaerobic Blood Culture - Preliminary NO GROWTH IN 2 DAYS Resulted 04/14/17 17:20 Blood Peripheral Aerobic Blood Culture - Preliminary NO GROWTH IN 2 DAYS Resulted 04/14/17 17:20 Blood Peripheral Anaerobic Blood Culture - Preliminary NO GROWTH IN 2 DAYS Resulted 04/14/17 17:23 Nasal Washing Influenza Types A,B Antigen (VINI) Pending Received 04/14/17 19:20 Wound Buttock Gram Stain - Final Resulted 04/14/17 19:20 Wound Culture - Preliminary Staphylococcus Aureus Resulted 04/14/17 19:20 Wound Shoulder Gram Stain - Final Resulted 04/14/17 19:20 Wound Shoulder Wound Culture Pending Resulted Physical Exam A/ OX 3 PERRL NS CHEST CTA NO WHEEZES CARDIAC RRR ABD: SOFT ACTIVE EXT RASH HEALING Assessment & Plan Diagnosis: (1) Rash and nonspecific skin eruption ICD Codes: R21 - Rash and other nonspecific skin eruption Plan: check bc x 2 hiv pending echo NORMAL will fu (2) Facial infection ICD Codes: L08.9 - Local infection of the skin and subcutaneous tissue, unspecified Status: Acute (3) Leukocytosis ICD Codes: D72.829 - Elevated white blood cell count, unspecified Status: Resolved Sumi Connor Apr 16, 2017 15:55
[2017-04-16 18:55] VITALS: RESP 18
[2017-04-16 20:00] VITALS: BP 117/61; PULSE 69; PULSE 78; RESP 21; TEMP 97.8; O2SAT 98
[2017-04-17] VITALS: BP 115/77; PULSE 73; RESP 19; TEMP 97.6; O2SAT 97
[2017-04-17] MEDS: SODIUM CHLOR 0.9% 1000 ML INJ 1,000 ML IV SCH (01:37)
[2017-04-17] MEDS: ALPRAZolam 1 MG TAB PO PRN ×2 (02:10→10:43)
[2017-04-17 08:00] VITALS: BP 120/75; PULSE 96; RESP 18; TEMP 98.9; O2SAT 98
--- NOTE | 2017-04-17 09:22 | HHI.DS ---
Discharge Summary Admission Date Apr 14, 2017 at 18:19 Discharge Date: Apr 17, 2017 Admitting Diagnosis Facial infection,rash,failure of outpt rx, gen weakness (1) Leukocytosis ICD Code: D72.829 - Elevated white blood cell count, unspecified Status: Resolved (2) Facial infection ICD Code: L08.9 - Local infection of the skin and subcutaneous tissue, unspecified Status: Acute (3) Failure of outpatient treatment ICD Code: Z78.9 - Other specified health status Status: Acute (4) Generalized weakness ICD Code: R53.1 - Weakness Status: Acute (5) Rash and nonspecific skin eruption ICD Code: R21 - Rash and other nonspecific skin eruption Status: Acute Procedures . Brief History - From Admission This is a 26-year-old male patient with an no medical history of irritable bowel syndrome who presented to the ED with continued skin lesions that have been worsening over the past six days. Patient has been recently hospitalized on March 18 of this year with sepsis secondary to facial infection. Patient received IV antibiotics, vancomycin and Zosyn, was followed by infectious disease and sent home on antibiotics by mouth. Patient states he finished antibiotics three days ago, was actually feeling better, facial infection was looking improved when this morning he woke up with worsening scabbing lesions on his right upper arm right buttock and right lower leg. States he has had subjective fevers, did not check them at home. Denies any nausea or vomiting, diarrhea. Patient does admit to a productive cough with yellow phlegm. Does complain of generalized weakness and generalized pain at lesion sites. CBC/BMP: 04/15/17 0620 04/15/17 0620 Significant Findings Laboratory Tests Test 04/14/17 17:20 04/14/17 17:25 04/14/17 19:20 04/15/17 06:20 Red Blood Count 4.11 MIL/MM3 (4.50-5.90) 4.08 MIL/MM3 (4.50-5.90) Hematocrit 36.8 % (39.0-51.0) 36.9 % (39.0-51.0) Neutrophils (%) (Auto) 77.3 % (16.0-70.0) Monocytes (%) (Auto) 10.5 % (0.0-8.0) 13.6 % (0.0-8.0) Lymphocytes # (Auto) 0.5 TH/MM3 (1.0-4.8) 0.8 TH/MM3 (1.0-4.8) Calcium Level 8.4 MG/DL (8.5-10.1) 8.1 MG/DL (8.5-10.1) Total Bilirubin 0.1 MG/DL (0.2-1.0) Sodium Level 135 MEQ/L (136-145) Potassium Level 3.2 MEQ/L (3.5-5.1) White Blood Count 3.9 TH/MM3 (4.0-11.0) Hemoglobin 12.0 GM/DL (13.0-17.0) Blood Urea Nitrogen 5 MG/DL (7-18) Random Glucose 121 MG/DL (74-106) Test 04/15/17 17:35 04/15/17 18:30 Urine Opiates Screen POS (NEG) Urine Benzodiazepines Screen POS (NEG) Urine Cocaine Screen POS (NEG) Urine Cannabinoids Screen POS (NEG) Imaging Last Impressions Chest X-Ray 04/14/17 1704 Signed Impressions: Service Date/Time: Friday, April 14, 2017 17:16 - CONCLUSION: No acute cardiopulmonary process. Ryan Parikh MD PE at Discharge GENERAL: Well-nourished, well-developed patient in [place]. SKIN: Warm and dry. No rash. Facial wound, right shoulder, right buttock and right knee wound. All open to air, no drainage. HEAD: Normocephalic. Atraumatic. EYES: Pupils equal and round. No scleral icterus. No injection or drainage. ENT: No nasal bleeding or discharge. Mucous membranes pink and moist. NECK: Supple. Trachea midline. CARDIOVASCULAR: Regular rate and rhythm. S1, S2 noted. No murmur appreciated. RESPIRATORY: No accessory muscle use. Clear to auscultation. Breath sounds equal bilaterally. GASTROINTESTINAL: Abdomen soft, non-tender, nondistended. Normoactive bowel sounds x4. MUSCULOSKELETAL: No obvious deformities. Extremities without clubbing, cyanosis , or edema. NEUROLOGICAL: Awake and alert. No obvious cranial nerve deficits. Motor grossly within normal limits. 5/5 muscle strength in bilateral upper and lower extremities. Normal speech. PSYCHIATRIC: Appropriate mood and affect; insight and judgment normal. Pt update on day of discharge Follow-up cellulitis. Patient seen and examined, lying in bed comfortably. Pain has mostly resolved. Eating well, denies any abdominal pain, nausea or vomiting. Patient has been ambulating. Skin infection improving, no drainage, all wounds are pending air. According culture growing Staphylococcus aureus, awaiting shoulder wound culture. ID following. Likely discharge today on by mouth antibiotics depending on cultures. Hospital Course Patient presented with facial wound, right shoulder wounds, right buttock wounds and right lower extremity wounds. Recent hospitalization with wound cultures positive for Staphylococcus aureus. At that time was placed on vancomycin and Zosyn. Was also given a dose of clindamycin. Patient was given 1 g vancomycin in the ED and continued throughout hospitalization Ancef was added. IV fluids continued. Infectious disease was consulted. Echocardiogram was performed showing an EF of 55-60%. Normal ventricular size. Wall thickness normal. Pain control with naproxen and Tylenol No. 3. Blood cultures drawn showing no growth to date. Leukocytosis. Afebrile during hospitalization. Wound cultures growing Staphylococcus aureus on buttock. Patient with mild hypokalemia, was replaced. Stable upon discharge. Chest x- ray showing no acute cardiopulmonary process. Urine drug screen positive. Patient encouraged cessation. Patient open and expressing interest to stop illicit drugs. HIV test pending. Encourage patient to follow-up upon discharge. Patient discharged on These recommended antibiotics. Encouraged to finish dose completely. Encouraged to return to the ED if worsening symptoms. Pt Condition on Discharge: Stable Discharge Disposition: Discharge Home Discharge Time: <= 30 minutes Discharge Instructions DIET: Follow Instructions for: As Tolerated, No Restrictions Speech Therapy-Diet Recommends: Regular Activities you can perform: Regular-No Restrictions Stefani Nelson Apr 17, 2017 09:22
--- NOTE | 2017-04-17 09:23 | HHI.DCPOC ---
Discharge Care Plan Diagnosis: (1) Generalized weakness (2) Facial infection (3) Failure of outpatient treatment (4) Rash and nonspecific skin eruption Goals to Promote Your Health * To prevent worsening of your condition and complications * To maintain your health at the optimal level Directions to Meet Your Goals Take your medications as prescribed Follow your dietary instruction Follow activity as directed Keep your appointments as scheduled Take your immunizations and boosters as scheduled If your symptoms worsen call your PCP, if no PCP go to Urgent Care Center or Emergency Room Smoking is Dangerous to Your Health. Avoid second hand smoke Call the 24-hour hour crisis hotline for domestic abuse at Stefani Nelson Apr 17, 2017 09:23
[2017-04-17] MEDS ORDERED: NAPR500 PO (09:24)
--- NOTE | 2017-04-17 09:59 | HHI.IDPN ---
Subjective Subjective Remarks No fevers in over 36 hrs Rash improving Feels better Antibiotics IV Cefazolin Lines Peripheral IV Past Medical History Depression Ulcerative colitis Facial cellulitis with MSSA History of MRSA Past Surgical History Appendectomy Allergies: Coded Allergies: diphenhydramine (Verified Allergy, Severe, 04/14/17) anxiety attack morphine (Unverified Adverse Reaction, Mild, HIVES, 04/14/17) denies Review of Systems Constitutional Constitutional Remarks No more fevers Objective . Vital Signs Date Time Temp Pulse Resp B/P (MAP) Pulse Ox O2 Delivery O2 Flow Rate FiO2 04/17/17 08:00 98.9 96 18 120/75 (90) 98 04/17/17 00:00 97.6 73 19 115/77 (90) 97 04/16/17 20:00 97.8 78 21 117/61 (79) 98 04/16/17 20:00 69 04/16/17 18:55 18 04/16/17 17:19 18 04/16/17 12:00 98.5 83 20 125/70 (88) 97 04/17/17 04/17/17 04/18/17 15:00 23:00 07:00 Output Total 0 ml Balance 0 ml Output Urine Total 0 ml . Microbiology Date/Time Source Procedure Growth Status 04/15/17 20:11 Blood Peripheral Aerobic Blood Culture - Preliminary NO GROWTH IN 1 DAY Resulted 04/15/17 20:11 Blood Peripheral Anaerobic Blood Culture - Preliminary NO GROWTH IN 1 DAY Resulted 04/15/17 20:05 Blood Peripheral Aerobic Blood Culture - Preliminary NO GROWTH IN 1 DAY Resulted 04/15/17 20:05 Blood Peripheral Anaerobic Blood Culture - Preliminary NO GROWTH IN 1 DAY Resulted 04/14/17 17:25 Blood Peripheral Aerobic Blood Culture - Preliminary NO GROWTH IN 2 DAYS Resulted 04/14/17 17:25 Blood Peripheral Anaerobic Blood Culture - Preliminary NO GROWTH IN 2 DAYS Resulted 04/14/17 17:20 Blood Peripheral Aerobic Blood Culture - Preliminary NO GROWTH IN 2 DAYS Resulted 04/14/17 17:20 Blood Peripheral Anaerobic Blood Culture - Preliminary NO GROWTH IN 2 DAYS Resulted 04/14/17 17:23 Nasal Washing Influenza Types A,B Antigen (VINI) - Final NEGATIVE FOR FLU A AND B ANTIGEN.... Complete 04/14/17 19:20 Wound Buttock Gram Stain - Final Resulted 04/14/17 19:20 Wound Culture - Preliminary Staphylococcus Aureus Resulted 04/14/17 19:20 Wound Shoulder Gram Stain - Final Resulted 04/14/17 19:20 Wound Shoulder Wound Culture Pending Resulted Physical Exam GENERAL: This is a well-nourished, well-developed patient, in no apparent distress. SKIN: Rashes on shoulder and buttock slowly improving. Some erythema on chin - improving HEAD: Atraumatic. Normocephalic. No temporal or scalp tenderness. EYES: Pupils equal round and reactive. Extraocular motions intact. No scleral icterus. No injection or drainage. ENT: Nose without bleeding, purulent drainage or septal hematoma. Throat without erythema, tonsillar hypertrophy or exudate. Uvula midline. Airway patent. NECK: Trachea midline. No JVD or lymphadenopathy. Supple, nontender, no meningeal signs. CARDIOVASCULAR: Regular rate and rhythm without murmurs, gallops, or rubs. RESPIRATORY: Clear to auscultation. Breath sounds equal bilaterally. No wheezes , rales, or rhonchi. GASTROINTESTINAL: Abdomen soft, non-tender, nondistended. No hepato-splenomegaly , or palpable masses. No guarding. MUSCULOSKELETAL: Extremities without clubbing, cyanosis, or edema. No joint tenderness, effusion, or edema noted. No calf tenderness. Negative Homans sign bilaterally. NEUROLOGICAL: Awake and alert. Cranial nerves II through XII intact. Motor and sensory grossly within normal limits. Five out of 5 muscle strength in all muscle groups. Normal speech. Assessment & Plan Diagnosis: (1) Rash and nonspecific skin eruption ICD Codes: R21 - Rash and other nonspecific skin eruption Status: Acute Plan: Improved No more fevers Blood cultures remain negative If remains afebrile- Cefuroxime 500 mg po bid x 3 weeks (2) Facial infection ICD Codes: L08.9 - Local infection of the skin and subcutaneous tissue, unspecified Status: Acute Ashley Bragg MD Apr 17, 2017 09:59
[2017-04-17] MEDS: ONDANSETRON HCL 4 MG/2 ML VIAL IVP PRN (10:37)
[2017-04-17] MEDS: ACETAMINOPHEN/CODEINE ELIX 120 MG/12 MG/5 ML CUP PO PRN (10:37)
[2017-04-17] MEDS: SODIUM CHLORIDE 0.9% FLUSH 10 ML FLUSH IV FLUSH SCH (10:38)
[2017-04-17] MEDS: DOCUSATE SODIUM 50 MG/SENNA 8.6 MG TAB PO SCH (10:38)
[2017-04-17] MEDS: FLUoxetine HCL 20 MG CAP PO SCH (10:38)
[2017-04-17] MEDS ORDERED: PHARMACY ORDERED LAB ONE (10:45)
[2017-04-17 11:06] VITALS: PULSE 96
[2017-04-17 12:00] VITALS: BP 119/58; PULSE 80; RESP 15; TEMP 98.4; O2SAT 97
[2017-04-17] MEDS ORDERED: CEFU1TAB20 PO (12:12)
[2017-04-17] MEDS ORDERED: CEFUROXIME AXETIL 500 MG TAB PO SCH (13:00)
== END 2017-04-17 14:53 | disposition home or self-care (01) | DRG 603 ==
LOC: PHED 16:30 → PHEDA 18:19 → PH3B 20:08
PROVIDERS: ADMIT Hospitalist; ATTEND Hospitalist
DX: L08.9 Local infection of the skin and subcutaneous tissue, unspecified (principal); E87.6 Hypokalemia; R21 Rash and other nonspecific skin eruption; K58.9 Irritable bowel syndrome, unspecified; R05 Cough; F19.90 Other psychoactive substance use, unspecified, uncomplicated; F32.9 Major depressive disorder, single episode, unspecified; F41.9 Anxiety disorder, unspecified; Z88.5 Allergy status to narcotic agent
CPT/HCPCS: 71045; 80048; 80053; 80202; 80307; 83605; 85025; 86403; 86703; 87040; 87070; 87147; 87186; 87205; 87804; 93306; 96365; J0690; J2405; J3370; J7030; J7050